=== PATIENT | female | born 1960 | race Caucasian/White ===

== ENCOUNTER 2020-05-22 14:57 | Outpatient (CLI) | payer OTHER, SELFPAY ==
--- NOTE | ~2020-05-22 | MM_ITS ---
EXAMINATION: MM screening [facility] BI w skylar HISTORY: Screening mammogram TECHNIQUE: Craniocaudal and mediolateral oblique 3-D tomosynthesis images were obtained and synthetic 2-D images were generated. CAD analysis was submitted and interpreted. COMPARISON: 04/14/2019, 04/11/2018, 02/22/2017 BREAST PARENCHYMAL COMPOSITION: The breasts are almost entirely fatty. FINDINGS: Scattered benign-appearing calcifications are present. There is no evidence of suspicious m ass, calcification, or architectural distortion to suggest malignancy in either breast. There has bee n no suspicious interval change. IMPRESSION: 1. No mammographic evidence of malignancy. 2. Recommend routine screening mammography in one year. BI-RADS Category 2: Benign finding(s). Reviewed, dictated and finalized at location A. ECTIONAL SUPERVISOR LIEUTENANT
== END 2020-05-22 14:58 | disposition home or self-care (01) ==
LOC: ANHIMG 14:58
PROVIDERS: PCP Nurse Practitioner Family; Visit Provider Obstetrics & Gynecology
DX: Z12.31 Encounter for screening mammogram for malignant neoplasm of breast (principal)
CPT/HCPCS: 77063; 77067

== ENCOUNTER 2020-11-27 10:23 | Outpatient (CLI) | payer OTHER, SELFPAY ==
--- NOTE | ~2020-11-27 | CT_ITS ---
EXAMINATION:CT diagnostic chest wo con DATE: 11/27/2020 10:39 INDICATION: Lung nodules. TECHNIQUE: Computed tomography (CT) of the chest was performed without intravenous contrast. Automate d exposure control and iterative reconstruction technique were employed. The dose-length product (DLP ) was 149.12 mGy-cm. COMPARISON: Chest CT 11/29/2006 FINDINGS: There is mild scarring at the lung apices. Calcified right lung nodules and calcified right hilar and mediastinal lymph nodes are consistent with old granulomatous disease. There are a few sca ttered nodules measuring up to 6 mm in right lower lobe, stable from 11/29/2006. No pleural effusion. The heart size is normal. There are coronary artery calcifications. No pericardial effusion. Calcific ations in the liver and spleen are consistent with old granulomatous disease. There are changes of an terior fusion procedure and disc replacement in cervical spine. IMPRESSION: 1. Chronic pulmonary nodules, likely benign. Reviewed, dictated and finalized at location A.
== END 2020-11-27 10:24 ==
LOC: MICIMG 10:24
PROVIDERS: PCP Nurse Practitioner Family; Visit Provider Nurse Practitioner
DX: R91.8 Other nonspecific abnormal finding of lung field (principal)
CPT/HCPCS: 71250

== ENCOUNTER → 2020-12-23 14:08 | Outpatient (CLI) | payer OTHER, SELFPAY ==
--- NOTE | ~2020-12-23 | US_ITS ---
EXAMINATION: US thyroid EXAM DATE: 12/23/2020 14:30 INDICATION: Thyroid nodule. TECHNIQUE: Multiple grayscale and Doppler images of the thyroid were obtained (by a technologist who performed the scan) and subsequently reviewed. Individual nodules and recommendations may be reporte d in accordance with TI-RADS system as designated by the 2017 ACR White Paper TI-RADS committee. Comp arison is made to prior examination from 02/13/2019. FINDINGS: The right thyroid lobe measures 4.3 x 1.1 x 1.6 cm, the left measuring 3.7 x 1.2 x 1.2 cm. Right thyr oid lobe 3 mm hypoechoic nodule and left thyroid lobe 2 mm hypoechoic nodule appear unchanged compare d to 2019 consistent with benign histology. Mildly diffusely heterogeneous thyroid echogenicity. IMPRESSION: Couple of tiny thyroid nodules, benign. Unremarkable exam. Reviewed, dictated and finalized at location A.
== END ==
PROVIDERS: PCP Nurse Practitioner Family; Visit Provider Nurse Practitioner Family
DX: E04.2 Nontoxic multinodular goiter (principal)
CPT/HCPCS: 76536

== ENCOUNTER 2021-06-25 10:23 | Outpatient (CLI) | payer OTHER, SELFPAY ==
--- NOTE | 2021-06-25 10:31 | ECG_ITS ---
Measurements Intervals [place] Rate: 75 P: 68 MO: 159 QRS: 35 QRSD: 94 T: 60 QT: 379 QTc: 425 Interpretive Statements SINUS RHYTHM NORMAL ECG Electronically Signed On 06-25-2021 10:55:45 GIRLS SWIMMING COACH by Aris Rose D.O.
[2021-06-25 10:58] LABS: Alanine Aminotransferase 18 U/L (4-35); Albumin Level 4.3 g/dL (3.5-5.1); Alkaline Phosphatase 71 U/L (38-126); Amylase 58 U/L (30-110); Aspartate Amino Transferase 23 U/L (14-36); Bilirubin,Total 0.5 mg/dL (0.2-1.3); Lipase 74 U/L (23-300)
== END 2021-06-25 10:24 | disposition home or self-care (01) ==
LOC: ANHSURGERY 10:26
PROVIDERS: PCP Nurse Practitioner Family; Visit Provider Surgery
DX: Z01.818 Encounter for other preprocedural examination (principal); K81.1 Chronic cholecystitis
CPT/HCPCS: 36415; 80076; 82150; 83690; 86850; 86900; 86901; 93005

== ENCOUNTER 2021-06-27 02:17 | Day surgery (SDC) | payer OTHER, SELFPAY ==
[2021-06-24 14:39] VITALS: BMI 25.9
--- NOTE | 2021-06-24 14:50 | PC.NURSE ---
Report to the Outpatient Waiting Room, entrance under the green pavilion located off [facility], at time 8:30 on date 06/27/21. OR Time: 10:30. - You will be asked a series of questions to screen for COVID 19 for your protection. - A mask is required within the hospital. - No visitors are allowed at this time. Preoperative COVID Testing Requirements: No COVID Test needed if: (proof is required; if not received patient will have Rapid Test prior to entry) - Patient has received COVID Vaccine at least 14 days prior to procedure date or - Patient has positive COVID test result within last 90 days of surgery date. COVID Test needed if above criteria is not met Patients may have clear liquids (water, carbonated beverages, clear teas, apple juice) until 3 hours prior to surgery (7:30) with a maximum of 20 ounces. - No food from midnight until time of surgery Take the following medications with a SIP of water the morning of surgery: ALBUTEROL (IF NEEDED), BUPROPION, DULOXETINE, METOPROLOL Medications to discontinue per physician: VITAMINS/SUPPLEMENTS Date to take last dose: 06/23/21 Please no make-up, nail ghanaian, hairspray, perfume, deodorant, or body powder the day of surgery. No jewelry (including any body piercings) or valuables the day of surgery, leave them at home. Please take a shower or bath the night before, or the morning of, surgery with an antibacterial soap. Wear comfortable, loose fitting clothing. HIBICLENS SHOWER - Jewelry must be removed prior to entering the operating room. Rings and piercings that are not removed may be cut off. - The hospital will not accept responsibility for valuables. - Please leave all valuables, including medications, at home the day of surgery. If you are going home after surgery, a licensed driver's license examiner must drive you home. - NO public transportation without another adult. - We recommend that an adult stay with you for 24 hours following discharge. - We also recommend that you do not drive, make important decision, drink alcoholic beverages, or take any drugs that were not prescribed by your health care provider for at least 24 hours after your discharge time. Follow any additional instructions given to you from your surgeon. Telephone instructions given to CLARE JONES and asked if any additional questions and then verbalized understanding. Patient advised to call surgeon office or pre surgery nurse liaison [phone] if any additional questions.
--- NOTE | 2021-06-26 14:46 | WPDANESEPPF ---
Anes - Initial Pre Proc Eval Procedure: Operation Date: 06/27/21 10:30 Proposed Procedures p Laparoscopic Cholecystectomy - Estrella Vance MD Date/Time: 06/26/21 14:46 Surgeon: Estrella Vance MD Pre Op Diagnosis: chronic cholecystitis Patient Data Age: 61 Gender: F Height: 1.61 m Weight: 67.59 kg Allergies Allergy/AdvReac Type Severity Reaction Status Date / Time No Known Drug Allergies Allergy Unknown Unknown Verified 06/27/21 10:08 Home Medications Medication Instructions Recorded Confirmed Type albuterol sulfate 90 mcg/actuation 1 inh INHALATION Q4-6H PRN 06/16/21 06/24/21 History breath activated powder inhaler bupropion HCl 150 mg 24 hr tablet, 150 mg PO QAM 06/16/21 06/24/21 History extended release duloxetine 30 mg capsule,delayed 30 mg PO DAILY 06/16/21 06/24/21 History release metoprolol succinate 25 mg 12.5 mg PO DAILY 06/16/21 06/24/21 History tablet,extended release 24 hr cholecalciferol (vitamin D3) 25 mcg PO DAILY 06/24/21 06/24/21 History [Vitamin D3] multivitamin 1 tablet PO DAILY 06/24/21 06/24/21 History Patient hx anesthesia problems: post op nausea/vomiting Family hx anesthesia problems: none Results Review: All pre-operative results and documents have been reviewed as part of the pre-operative evaluation. [facility] Past Medical History Medical History (Updated 06/26/21 @ 14:47 by Kameron Esparza DO) Anxiety COPD (chronic obstructive pulmonary disease) GERD (gastroesophageal reflux disease) Hypertension Mitral valve prolapse JASPAL (obstructive sleep apnea) PONV (postoperative nausea and vomiting) Surgical History Surgical History H/O neck surgery H/O shoulder surgery S/P bilateral breast reduction S/P carpal tunnel release Family History Family History Father Patient's father is , Onset Age: 80 Family history of chronic obstructive pulmonary disease Heart disease Cerebrovascular accident Mother , age 75 Pancreatic cancer Sibling Family history of malignant neoplasm, Onset Age: 50 Grandparent , age 65 Carcinoma of colon Family history of lung cancer Family history of dementia Social History Social History Years smoked: 15 Smoking status: Current some day smoker Tobacco type: cigarettes Smoking end date: 06/07/16 Alcohol intake: current Alcohol use details: rare Substance use: never Substance use type: does not use Living arrangements: with family Spiritual care concerns: No Anes - Eval Final PreProcedure Day of Procedure 06/26/21 14:46 Patient weight: overweight Heart: regular rate and rhythm Lungs: clear to auscultation and normal air movement Airway: Mallampati scale class II Neurological: alert and oriented Last oral intake: >/= 8 hours ASA classification: III Emergent: no Anesthetic plan: proceed Anesthesia type and monitoring: general ETT and standard monitoring Results Review: All pre-operative results and documents have been reviewed as part of the pre-operative evaluation. Informed Consent: The patient's anesthetic plan and its attendant risks and benefits were discussed with the patient/family/POA. Questions were solicited and answers provided to the satisfaction of the patient/family/POA.
[2021-06-27] VITALS (11 sets, daily range): BP systolic 113–138; BP diastolic 59–76; PULSE 76–96; RESP 11–20; TEMP 36.5; O2SAT 95–100
--- NOTE | 2021-06-27 07:28 | WPDHPUPDATE1 ---
History and Physical Update Update Date/Time: 06/27/21 07:28 History and Physical has been reviewed, including an updated exam of the patient. There are NO changes in the patient's condition. Risks, benefits, and alternatives have been discussed and questions answered. Patient agrees to proceed with procedure.
[2021-06-27] MEDS: ACETAMINOPHEN 500 MG TABLET 1000 MG PO (10:00)
[2021-06-27] MEDS: LACTATED RINGERS 1,000 ML 30 ML IV CONT ×2 (10:34→12:18)
[2021-06-27] MEDS: KETOROLAC 15 MG/ML VIAL (*BKC) IV PUSH (10:37)
[2021-06-27] MEDS: SCOPOLAMINE 1.5 MG PATCH TRANSDERM (10:37)
[2021-06-27] MEDS: ceFAZolin 2 GM/D5W 50 ML 2 GM/50 ML BAG IVPB (10:38)
[2021-06-27] MEDS: BUPIVACAINE/EPINEPHRINE 0.25% 10 ML VIAL 30 ML INFILTRATE (11:00)
--- NOTE | 2021-06-27 11:24 | P.OP_ITS ---
Procedure Note - Detailed Date of Procedure 06/27/21 Pre-op Diagnosis chronic cholecystitis Post-op Diagnosis same Procedure Performed Laparoscopic cholecystectomy Surgeon Estrella Vance MD Anesthesia general Indications 61 y/o F c chronic cholecystitis Findings chronic cholecystitis Description of Procedure The patient was taken to the operating room placed in the supine position. After adequate induction of general anesthesia, the patient was prepped and draped in normal sterile fashion. A time-out was then performed to verify the patient's identity as well as the procedure being performed. I then made a 5 mm incision in the infraumbilical region. Through this, a Veress needle was placed into the peritoneal cavity and CO2 gas was then insufflated. After adequate pneumoperitoneum was achieved, the Veress needle was removed and a 5 mm optiview trocar was placed through this incision under direct visualization. I then placed the laparoscope through this trocar site and under direct visualization placed a further 12 mm subxiphoid port as well as 2 additional 5 mm ports in the right upper abdomen. The gallbladder was then identified and was noted to be slightly inflamed, distended. I was able to place a grasper at the dome of the gallbladder and this was retracted anterior and cephalad up over the liver. A 2nd retractor was then placed at the infundibulum and retracted laterally, th is allowed visualization of the triangle of Calot. I then was able to visualize the cystic duct in its entirety from its proximal insertion into the gallbladder, to its distal junction with the common hepatic/common bile duct junction. At this point, I carefully skeletonized the proximal cystic duct with the [place] dissector. I then clipped and transected the proximal cystic duct. Next I visualized the cystic artery. Again the artery was skeletonized, clipped, and transected. I then used the Bovie cautery to take down the peritoneal attachments of the gallbladder off the liver bed. Once the gallbladder specimen was completely detached, an endo-pouch was placed through the 12 mm port site. I then placed the gallbladder specimen into the Endo pouch and removed the endo-pouch from the 12 mm port site. The specimen will now be sent to pathology for further review. I then copiously irrigated the right upper quadrant. Hemostasis was noted in the liver bed, the clips were noted to be in good position on both the cystic duct stump and the cystic artery stump. No other pathology was noted in the right upper quadrant. I then moved the laparoscope to the subxiphoid port. No iatrogenic injury or other pathology was noted in the lower abdomen. I then closed the 12 mm trocar site under direct visualization using the Rob cone and 0 Vicryl suture. At this point, the abdomen was desufflated and all ports removed. All port sites were then closed with 4.O Monocryl subcuticular sutures. Dermabond was placed on each incision. The patient tolerated the procedure well, was extubated in the operating room postoperative and will be transferred to the recovery room in stable condition Estimated Blood Loss 1 Drains No Packing No Pathology yes Complications No immediate complications Condition stable Disposition PACU
[2021-06-27] MEDS: fentaNYL CITRATE INJ (*CRX) 100 MCG/2 ML VIAL 25 MCG IV PUSH ×3 (12:07→12:39)
[2021-06-27] MEDS: ONDANSETRON INJ 4 MG/2 ML VIAL IV PUSH (12:16)
[2021-06-27] MEDS: diphenhydrAMINE HCl INJ 50 MG/ML VIAL 12.5 MG IV PUSH (12:35)
== END 2021-06-27 14:03 | disposition home or self-care (01) ==
PROVIDERS: PCP Nurse Practitioner Family; Visit Provider Surgery
PROC: 0FT44ZZ Resection of Gallbladder, Percutaneous Endoscopic Approach (ICD-10-PCS; CPT 47562; principal; 2021-06-27 10:30)
DX: K81.1 Chronic cholecystitis (principal); J44.9 Chronic obstructive pulmonary disease, unspecified; I10 Essential (primary) hypertension; I34.1 Nonrheumatic mitral (valve) prolapse; G47.33 Obstructive sleep apnea (adult) (pediatric); K21.9 Gastro-esophageal reflux disease without esophagitis; F41.9 Anxiety disorder, unspecified; Z79.51 Long term (current) use of inhaled steroids; Z87.891 Personal history of nicotine dependence
CPT/HCPCS: 47562; 36415; 86850; 86900; 86901; 88304; A9270; J0690; J1100; J1200; J1885; J2250; J2270; J2405; J2704; J2710; J3010; J7030; J7120

== ENCOUNTER → 2022-02-17 10:07 | Outpatient (CLI) | payer OTHER, SELFPAY ==
--- NOTE | ~2022-02-17 | XR_ITS ---
EXAMINATION: XR chest 2V DATE: 02/17/2022 10:36 INDICATION: Acute exacerbation of COPD TECHNIQUE: Frontal and lateral views of the chest are obtained COMPARISON: 06/20/2008 FINDINGS: The lungs are free of acute opacities. No pleural effusion or pneumothorax. The cardiomedia stinal silhouette is normal. There is mild thoracic spondylosis. Calcified mediastinal lymph nodes ar e consistent with old granulomatous disease. Surgical clips in the upper abdomen on the lateral view are likely from prior cholecystectomy. IMPRESSION: 1. No acute cardiopulmonary abnormality. Reviewed, dictated and finalized at location B.
== END ==
PROVIDERS: PCP Nurse Practitioner Family; Visit Provider Nurse Practitioner
DX: J44.1 Chronic obstructive pulmonary disease with (acute) exacerbation (principal); M47.814 Spondylosis without myelopathy or radiculopathy, thoracic region
CPT/HCPCS: 71046

== ENCOUNTER → 2022-03-09 10:59 | Outpatient (CLI) | payer OTHER, SELFPAY ==
--- NOTE | ~2022-03-09 | US_ITS ---
EXAMINATION: US thyroid DATE: 03/09/2022 11:14 INDICATION: Thyroid nodule. TECHNIQUE: Multiple ultrasound images of the thyroid were obtained. COMPARISON: Ultrasound 12/23/2020, 08/04/2013 FINDINGS: The right thyroid lobe measures 5.3 x 1.3 x 1.9 cm. The left thyroid lobe measures 4.1 x 1.1 x 1.2 c m. There is a 2 mm nodule in left thyroid lobe. There is a 3 mm nodule in right thyroid lobe. IMPRESSION: 1. Small thyroid nodules, likely not clinically significant. No follow-up is needed. Reviewed, dictated and finalized at location B. IMPRESSION: 1. Small thyroid nodules, likely not clinically significant. No follow-up is ne eded.
== END ==
PROVIDERS: PCP Nurse Practitioner Family; Visit Provider Nurse Practitioner Family
DX: E04.2 Nontoxic multinodular goiter (principal)
CPT/HCPCS: 76536

== ENCOUNTER 2022-03-13 08:46 | Outpatient (CLI) | payer OTHER, SELFPAY ==
--- NOTE | ~2022-03-13 | MM_ITS ---
EXAMINATION: MM screening [facility] BI w skylar HISTORY: Screening mammogram TECHNIQUE: Craniocaudal and mediolateral oblique 3-D tomosynthesis images were obtained and synthetic 2-D images were generated. CAD analysis was submitted and interpreted. COMPARISON: 05/22/2020, 04/24/2019, 04/11/2018, 02/22/2017 BREAST PARENCHYMAL COMPOSITION: The breasts are almost entirely fatty. FINDINGS: No suspicious mass, calcification, or architectural distortion are identified in either david ast to suggest malignancy. There has been no suspicious interval change. IMPRESSION: 1. No mammographic evidence of malignancy. 2. Recommend routine screening mammography in one year. BI-RADS Category 1: Negative Reviewed, dictated and finalized at location A.
== END 2022-03-13 08:47 | disposition home or self-care (01) ==
LOC: ANHIMG 08:49
PROVIDERS: PCP Nurse Practitioner Family; Visit Provider Obstetrics & Gynecology
DX: Z12.31 Encounter for screening mammogram for malignant neoplasm of breast (principal)
CPT/HCPCS: 77063; 77067

== ENCOUNTER 2022-03-13 13:00 | Outpatient (CLI) | payer OTHER, SELFPAY ==
--- NOTE | ~2022-03-13 | CT_ITS ---
EXAMINATION: CTA chest PE protocol DATE: 03/13/2022 15:05 CDT INDICATION: Chest pain TECHNIQUE: Computed tomographic angiography (CTA) of the chest was performed with 100 mL Omnipaque-35 0 intravenous contrast. The dose-length product was 184.97 mGy-cm. Maximum intensity projection 3D-re constructions of the aorta and other arteries were constructed by the technologist on a separate work station. Automated exposure control and iterative reconstruction technique were employed. COMPARISON: CT dated 11/27/2020 FINDINGS: The study is technically adequate without evidence for pulmonary emboli. No significant ple ural or pericardial effusion. There is a hiatal hernia. No thoracic lymphadenopathy. Status post chol ecystectomy. There are calcified granulomas of the liver and spleen. There are bilateral pulmonary no dules, largest measuring 5 mm in the right lower lobe, unchanged from prior examination. No pulmonary nodules. IMPRESSION: 1. No evidence for pulmonary embolism. 2: Stable bilateral pulmonary nodules measuring 5 mm or less, likely benign. Consider follow-up CT est in 12 months. Reviewed, dictated and finalized at location A. IMPRESSION: 1. No evidence for pulmonary embolism. 2: Stable bilateral pulmonary nodules measuring 5 mm or less, likely benign. Co nsider follow-up CT chest in 12 months.
[2022-03-13 13:56] LABS: Alveolar/Arterial O2 Gradient 12.3 mmHg; Base Excess ABG 1.6 mEq/l (+/-2.0); Carboxyhemoglobin 4.4 % THb (0-2.0); Fractional Inspired Oxygen 21 %; HCO3 ABG 26.3 mEq/l (22.0-26.0); Methemoglobin ABG 0.1 %THb (0-1.5); Oxygen Content ABG 17.6 %vol (16.0-22.0); Oxygen Saturation ABG 96.8 % (95.0-100.0); Oxyhemoglobin 91.7 % THb (90.0-100.0); PCO2 ABG 41.5 mmHg (35.0-45.0); PO2 ABG 87.7 mmHg (80.0-100.0); PO2 FiO2 Ratio Arterial Blood 4.18 %; Reduced Hemoglobin 3.8 %THb (0-5.0); Total Hemoglobin 13.6 g/dL (12.0-18.0); pH ABG 7.419 (7.350-7.450)
[2022-03-13 13:58] LABS: Device ROOM AIR; Modified Allen's Test Pass; Site Drawn RIGHT RADIAL
[2022-03-13 14:59] LABS: Estimated Glomerular Filt Rate > 60
--- NOTE | 2022-03-13 15:52 | WPDSIXMINUTE ---
Six Minute Walk Procedure Procedure Performed Pulmonary Stress Test (6 min walk) Six Minute Walk Six Minute Walk: This is a 6 minute walk test. The test was performed and interpreted in accordance with the 2014 ERS/ATS task force guidelines. Findings: The patient's resting room air oxygen saturation measured by pulse oximetry was 98% and heart rate was 124 bpm. Patient ambulated for 427 meters and oxygen saturation remained 96 to 98%. Heart rate at the end of the study was 144 bpm. The patient did not qualify for supplemental oxygen at rest or with ambulation. There are no prior studies for comparison.
--- NOTE | 2022-03-13 15:53 | P.PCNPFT_ITS ---
PFT Procedure Performed PFT Procedure Performed Spirometry with Pre/Post Bronchodilator Plethysmography (Lung Vol) Diffusing Cap (DLCO) Flow Vol Loop PFT Interpretation This is a pulmonary function test with pre and post-bronchodilator spirometry, plethysmography and diffusing capacity. The test was performed and results interpreted in accordance with the 2019 and 2005 ATS/ERS Task Force guidelines respectively using the Global Lung Function Initiative-2012 reference equations. Patient demonstrated good effort and cooperation. Reproducibility criteria were met. The quality of the pre bronchodilator spirometry maneuver was Grade A and post bronchodilator spirometry maneuver was Grade A. Findings: Spirometry: There is decreased maximal expiratory airflow at all lung volumes with a mildly concave expiratory flow tracing. The contour the inspiratory flow tracing is normal. The pre bronchodilator FVC is 2.27 L, 77% predicted. The pre bronchodilator FEV1 is 1.58 L, 68% predicted. The pre bronchodilator FEV1: FVC ratio 70%. The post bronchodilator FVC is 2.53 L, representing a 12% increase. The post bronchodilator FEV1 is 1.72 L, representing a 9% increase. The post bronchodilator FEV1: FVC ratio 68%. Plethysmography: The total lung capacity is 5.71 L, 117% predicted. The functi onal residual capacity is 3.46 L, 124% predicted. The residual volume is 3.33 L, 165% predicted. Diffusion capacity: The diffusing capacity unadjusted for hemoglobin and carboxyhemoglobin is 14.3, 69% predicted. Diffusing capacity adjusted for alveolar volume is 3.49, 79% predicted. Impression: There is a moderate obstructive abnormality with significant improvement after inhaling a single dose of albuterol. The increase in residual volume is consistent with air trapping from an obstructive abnormality. The diffusing capacity is normal. There are no prior studies for comparison
== END 2022-03-13 13:01 | disposition home or self-care (01) ==
PROVIDERS: PCP Nurse Practitioner Family; Visit Provider Nurse Practitioner
DX: J44.9 Chronic obstructive pulmonary disease, unspecified (principal); R07.9 Chest pain, unspecified; R94.2 Abnormal results of pulmonary function studies
CPT/HCPCS: 36600; 71275; 82375; 82805; 83050; 94060; 94618; 94726; 94729; Q9967

== ENCOUNTER 2022-06-11 13:53 | Outpatient (CLI) | payer OTHER, SELFPAY ==
[2022-06-11 14:19] LABS: Basophils Percent Auto 0.5 % (0.2-1.2); Eosinophils Absolute Auto 0.2 K/mm3 (0-0.3); Eosinophils Percent Auto 2.6 % (0-4.4); Hematocrit 39.6 % (37.0-47.0); Hemoglobin 13.3 g/dL (12.0-15.0); Immature Granulocyte Absolute 0.01 K/mm3 (0.00-0.031); Immature Granulocyte Percent A 0.2 % (0-0.5); Lymphocytes Absolute Auto 2.19 K/mm3 (0.9-3.2); Mean Corpuscular HGB Conc 33.6 g/dl (32-36); Mean Corpuscular Volume 95.4 fl (80-100); Mean Platelet Volume 9.6 fl (7.4-10.4); Monocytes Absolute Auto 0.7 K/mm3 (0.1-0.6); Monocytes Percent Auto 10.2 % (2.6-8.5); Neutrophils Absolute Auto 3.4 K/mm3 (1.3-6.7); Neutrophils Percent Auto 52.5 % (45.5-73.1); Platelet Count Result 262 k/mm3 (150-375); Red Blood Count 4.15 M/mm3 (4.2-5.4); Red Cell Distribution Width 12.3 % (11.5-14.5); White Blood Count 6.5 K/mm3 (4.5-10.0)
[2022-06-11 15:23] LABS: Alanine Aminotransferase 20 U/L (6-35); Albumin Level 4.4 g/dL (3.5-5.1); Alkaline Phosphatase 80 U/L (38-126); Anion Gap 8 mmol/L (8-16); Aspartate Amino Transferase 24 U/L (14-36); Bilirubin,Total 0.4 mg/dL (0.2-1.3); Blood Urea Nitrogen 21 mg/dL (7-17); Carbon Dioxide 29 mmol/L (22-30); Chloride 105 mmol/L (98-107); Estimated Glomerular Filt Rate 56; Glucose 111 mg/dL (65-110); Potassium 4.3 mmol/L (3.4-5.0); Sodium 142 mmol/L (137-145)
[2022-06-11 15:28] LABS: Iron 125 ug/dL (37-170)
[2022-06-11 15:43] LABS: Percent Iron Saturation 35 % (20-50)
== END 2022-06-11 13:54 | disposition home or self-care (01) ==
PROVIDERS: PCP Nurse Practitioner Family; Visit Provider Internal Medicine Hematology & Oncology
DX: E83.110 Hereditary hemochromatosis (principal)
CPT/HCPCS: 36415; 80053; 81256; 82728; 83540; 83550; 85025

== ENCOUNTER → 2022-06-25 12:54 | Outpatient (CLI) | payer OTHER, SELFPAY ==
--- NOTE | ~2022-06-25 | CT_ITS ---
EXAMINATION: CT sinus wo con DATE: 06/25/2022 13:06 INDICATION: Chronic sinusitis TECHNIQUE: Computed tomography (CT) of the paranasal sinuses was performed without contrast. Iterativ e reconstruction technique was employed. Exam dose: 260.54 mGy-cm total exam DLP. COMPARISON: None FINDINGS: There is rightward deviation of the nasal septum. There is asymmetric soft tissue prominence of the left inferior nasal turbinate. There is very promin ent left middle nasal turbinate intralamellar cell. There is focal soft tissue swelling at the left maxillary ostium Focal approximately 7.5 x 11 mm soft tissue thickening along the upper anteromedial wall of the right maxillary sinus at the right maxillary ostium. Otherwise there is no significant mucoperiosteal thickening or soft tissue mass or any fluid levels o f the paranasal sinuses. The mastoid air cells are normally developed and aerated bilaterally. Middle and inner ear apparatus are unremarkable. IMPRESSION: Soft tissue swelling at both maxillary ostia, right greater than left Very prominent intralamellar cell of left middle nasal turbinate Asymmetric soft tissue swelling of left inferior nasal turbinate Reviewed, dictated and finalized at Location A. Reviewed, dictated and finalized at location L. 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
== END ==
PROVIDERS: Visit Provider Otolaryngology
DX: J32.0 Chronic maxillary sinusitis (principal)
CPT/HCPCS: 70486

== ENCOUNTER 2022-09-02 16:44 | Inpatient (IN) | payer OTHER, SELFPAY ==
[2022-09-02] VITALS (12 sets, daily range): BP systolic 86–113; BP diastolic 61–82; PULSE 98–134; RESP 16–30; TEMP 36.5–36.9; O2SAT 96–100; BMI 27.0
--- NOTE | ~2022-09-02 | CT_ITS ---
EXAMINATION: CTA chest PE abdomen pel DATE: 09/02/2022 19:45 INDICATION: Hypoxia and lower abdominal pain TECHNIQUE: Computed tomography angiography (CTA) of the chest was performed with 100 mL Omnipaque-350 intravenous contrast timed to evaluate the pulmonary arteries. Subsequent postcontrast images of the abdomen and pelvis are obtained. Coronal maximum intensity projection 3D-reconstructions were create d by the technologist. The dose-length product (DLP) was 555.05 mGy-cm. Automated exposure control an d iterative reconstruction technique were employed. COMPARISON: 03/13/2022, 11/27/2020 FINDINGS: CTA CHEST: The pulmonary arteries are well-opacified. No pulmonary embolism is identified. There are scattered, chronic bilateral pulmonary nodules measuring up to 6 mm which do not demonstrate signific ant interval change in size, most consistent with benign findings. There are trace pleural effusions. No pneumothorax is identified. There is left ventricular enlargement of the heart. There is mild pul monary edema. There is mild bilateral hilar lymphadenopathy, likely reactive. ABDOMEN/PELVIS CT: The gallbladder is surgically absent. There is mild enlargement of the common bile duct and central intrahepatic ducts which is likely due to post cholecystectomy state. The liver, pa ncreas, and adrenal glands are normal. Punctate calcifications of the spleen are consistent with old granulomatous disease. There is a 6 mm hypoattenuating lesion of the caudal aspect of the spleen, lik leoncio a cyst or lymphangioma. The kidneys are unremarkable. No pathologically enlarged abdominal or pel radha lymph nodes are identified. The appendix is normal. No free intraperitoneal gas or evidence of emperatriz wel obstruction. A moderate volume of colonic stool is present. There is moderate distention of the u rinary bladder. There is mild lumbar spondylosis. IMPRESSION: 1. No pulmonary embolus identified. 2. Left ventricular enlargement of the heart with mild pulmonary edema. 3. No acute abnormality of the abdomen or pelvis. Reviewed, dictated and finalized at location F.
--- NOTE | ~2022-09-02 | XR_ITS ---
EXAMINATION: XR chest 2V DATE: 09/02/2022 17:57 INDICATION: Shortness of breath TECHNIQUE: PA and lateral views of the chest are obtained. COMPARISON: 02/17/2022 FINDINGS: There are linear subpleural opacities of the lungs. There are trace pleural effusions. No p neumothorax is identified. The cardiomediastinal silhouette is normal. Calcified right hilar lymph no genoveva are consistent with old granulomatous disease. Surgical clips in the right upper quadrant are lik leoncio from prior cholecystectomy. There is mild thoracic spondylosis. Changes of anterior fusion are no nova in the lower cervical spine. IMPRESSION: 1. Findings consistent with mild pulmonary edema. Reviewed, dictated and finalized at location F.
--- NOTE | ~2022-09-02 | XR_ITS ---
Portable chest x-ray Comparison: 09/02/2022 Clinical History: Shortness of breath Findings: Lungs are clear, without focal consolidation or pleural effusion. Probable COPD or mild ch ronic interstitial disease. Cardiomediastinal silhouette is stable. Bones and soft tissues are unrem arkable. Impression: Probable COPD or other mild chronic interstitial disease. No acute abnormality seen. Reviewed, dictated and finalized at location . Impression: Probable COPD or other mild chronic interstitial disease. No acute abnormality seen.
--- NOTE | ~2022-09-02 | US_ITS ---
EXAMINATION: US venous doppler [facility] DATE: 09/03/2022 22:42 INDICATION: Lower limb pain and swelling TECHNIQUE: Andres scale images without and with compression and Doppler images of the bilateral lower e xtremity veins were obtained. COMPARISON: None FINDINGS: The right common femoral vein, profunda femoral vein, femoral vein, popliteal vein, peroneal trunk, p osterior tibial veins, and greater saphenous vein are patent. The left common femoral vein, profunda femoral vein, femoral vein, popliteal vein, peroneal trunk, po sterior tibial veins, and greater saphenous vein are patent. IMPRESSION: 1. Patent bilateral lower extremity veins. No evidence of deep venous thrombosis. Reviewed, dictated and finalized at location F. IMPRESSION: 1. Patent bilateral lower extremity veins. No evidence of deep venous thrombosi s.
--- NOTE | 2022-09-02 17:12 | ECG_ITS ---
Measurements Intervals [place] Rate: 124 P: -2 CT: 145 QRS: -58 QRSD: 141 T: 85 QT: 350 QTc: 503 Interpretive Statements SINUS TACHYCARDIA LEFT AXIS DEVIATION LEFT BUNDLE BRANCH BLOCK BASELINE ARTIFACT- I, III, AVR, AVL, AVF, V5 ABNORMAL ECG COMPARED TO ECG 06/25/2021 10:43:02 SINUS TACHYCARDIA NOW PRESENT LEFT-AXIS DEVIATION NOW PRESENT LEFT BUNDLE-BRANCH BLOCK NOW PRESENT Electronically Signed On 09-02-2022 21:07:47 CDT by Aris Rose D.O.
[2022-09-02 17:26] LABS: Basophils Percent Auto 0.4 % (0.2-1.2); Eosinophils Absolute Auto 0.3 K/mm3 (0-0.3); Eosinophils Percent Auto 4.1 % (0-4.4); Hematocrit 33.2 % (37.0-47.0); Hemoglobin 10.8 g/dL (12.0-15.0); Immature Granulocyte Absolute 0.02 K/mm3 (0.00-0.031); Immature Granulocyte Percent A 0.3 % (0-0.5); Lymphocytes Absolute Auto 1.74 K/mm3 (0.9-3.2); Lymphocytes Percent Auto 25.3 % (18.3-44.2); Mean Corpuscular HGB Conc 32.5 g/dl (32-36); Mean Corpuscular Hemoglobin 30.8 pg (26-34); Mean Corpuscular Volume 94.6 fl (80-100); Mean Platelet Volume 9.8 fl (7.4-10.4); Monocytes Absolute Auto 0.7 K/mm3 (0.1-0.6); Neutrophils Absolute Auto 4.1 K/mm3 (1.3-6.7); Neutrophils Percent Auto 59.9 % (45.5-73.1); Platelet Count Result 263 k/mm3 (150-375); Red Blood Count 3.51 M/mm3 (4.2-5.4); Red Cell Distribution Width 12.1 % (11.5-14.5); White Blood Count 6.9 K/mm3 (4.5-10.0)
[2022-09-02 17:37] LABS: Alanine Aminotransferase 17 U/L (6-35); Albumin Level 4.3 g/dL (3.5-5.1); Alkaline Phosphatase 88 U/L (38-126); Anion Gap 7 mmol/L (8-16); Aspartate Amino Transferase 29 U/L (14-36); Bilirubin,Total 0.6 mg/dL (0.2-1.3); Blood Urea Nitrogen 21 mg/dL (7-17); Calcium 9.1 mg/dL (8.4-10.2); Carbon Dioxide 24 mmol/L (22-30); Chloride 107 mmol/L (98-107); Estimated CRCL calculation 58 ml/min; Estimated Glomerular Filt Rate > 60; Glucose 86 mg/dL (65-110); Potassium 4.4 mmol/L (3.4-5.0); Sodium 138 mmol/L (137-145)
[2022-09-02 17:52] LABS: Magnesium 1.9 mg/dL (1.6-2.3)
[2022-09-02 17:58] LABS: INR 1.1; Prothrombin Time 13.4 Seconds (11.1-14.7)
[2022-09-02] MEDS: IPRATROPIUM BR 0.02% INH SOLN 0.5 MG/2.5 ML VIAL 1.5 MG INHALATION (17:58)
[2022-09-02] MEDS: LEVALBUTEROL NEB 1.25 MG/3 ML 2.5 MG (17:58)
[2022-09-02 17:59] LABS: Partial Thromboplastin Time 33.6 SECONDS (22.3-36.8)
--- NOTE | 2022-09-02 18:00 | ED.SOB ---
HPI - SOB/Dyspnea General Chief Complaint: Shortness of Breath/Dyspnea <Pallavi Diop PA-C - Last Filed: 09/03/22 02:42> Stated Complaint: diff breathing <ERIC Rose Last Filed: 09/03/22 02:42> Time Seen by Provider: 09/02/22 17:07 <ERIC Rose Last Filed: 09/03/22 02:42> Source: patient <ERIC Rose Last Filed: 09/03/22 02:42> Mode of arrival: ambulatory <ERIC Rose Last Filed: 09/03/22 02:42> Limitations: no limitations <ERIC Rose Last Filed: 09/03/22 02:42> History of Present Illness HPI Narrative: Patient is a 62-year-old female, with past medical history of COPD, who presents to the ED with report of shortness of breath. Patient reports she has felt intermittently short of breath, worse with exertion and laying flat, over the last 1 week. She states she has had issues with her breathing since having COVID in 2020. She has seen a rfid systems engineer, Dr. Mensah, and regional company hazmat tanker driver, Dr. Hunter, for this. Denies previous Dx of CHF. Shortness of breath became worse today and patient noticed her oxygen saturation dropping to 86% while ambulating. Patient also reports having racing heart palpitations, chest tightness, intermittent swelling of her ankles, mild cough, nausea, lightheadedness, and lower abdominal pain for the past 1 to 2 days. Denies recent fever, vomiting, diarrhea, constipation, urinary sx's. <ERIC Rose Last Filed: 09/03/22 02:42> Related Data Home Medications: Home Medications Medication Instructions Recorded Confirmed albuterol sulfate 90 mcg/actuation 1 inh inhalation Q4-6H PRN 06/16/21 09/02/22 breath activated powder inhaler Bronchospasm budesonide 0.5 mg/2 mL suspension 0.5 mg inhalation DAILY 09/02/22 09/02/22 for nebulization fluticasone furoate 100 1 inh inhalation DAILY 09/02/22 09/02/22 mcg/actuation blister powder for inhalation (Arnuity Ellipta) omeprazole 40 mg capsule,delayed 40 mg PO DAILY 09/02/22 09/02/22 release tiotropium bromide 18 mcg capsule 1 cap inhalation DAILY 09/02/22 09/02/22 with inhalation device (Spiriva with HandiHaler) <Pallavi Diop PA-C - Last Filed: 09/03/22 02:42> Allergies/Adverse Reactions: Allergies Allergy/AdvReac Type Severity Reaction Status Date / Time No Known Drug Allergies Allergy Unknown Unknown Verified 09/02/22 17:25 <Pallavi Diop PA-C - Last Filed: 09/03/22 02:42> Review of Systems Review of Systems: CONSTITUTIONAL: Denies fever, chills, or sweats. CARDIOVASCULAR: See HPI. RESPIRATORY: See HPI. GASTROINTESTINAL: See HPI. GENITOURINARY: Denies dysuria or hematuria. SKIN: Denies rash or itching. MUSCULOSKELETAL: Denies back pain, joint pain, or myalgia. NEUROLOGIC: See HPI. <ERIC Rose Last Filed: 09/03/22 02:42> All systems reviewed & are unremarkable except as noted in HPI and below <Pallavi Diop PA-C - Last Filed: 09/03/22 02:42> PMFSH Past Medical History Medical History: Medical History (Updated 09/04/22 @ 16:51 by Alexey Arnett MD) Anxiety COPD (chronic obstructive pulmonary disease) GERD (gastroesophageal reflux disease) Hemochromatosis Hypertension Mitral valve prolapse JASPAL (obstructive sleep apnea) PONV (postoperative nausea and vomiting) <ERIC Rose Last Filed: 09/03/22 02:42> Surgical History Surgical History: Surgical History H/O neck surgery H/O shoulder surgery Hx laparoscopic cholecystectomy 06/27/21 S/P bilateral breast reduction S/P carpal tunnel release <ERIC Rose Last Filed: 09/03/22 02:42> Family History Family History: Family History Father Patient's father is , Onset Age: 80 Family history of chronic obstructiv
[2022-09-02 18:11] LABS: NT Pro B Type Natriuretic Pept 6810 pg/mL (19.9-100); Troponin I 0.086 ng/mL (0.000-0.034)
[2022-09-02 18:41] LABS: Influenza A QL RT-PCR Negative (Negative); Influenza B QL RT-PCR Negative (Negative); SARS-CoV-2 RNA PCR Negative
[2022-09-02] MEDS: FUROSEMIDE INJ 40 MG/4 ML VIAL IV PUSH (18:46)
[2022-09-02 18:59] LABS: Appearance Urine Clear (Clear); Bacteria Urine None Seen /hpf; Bilirubin Urine Negative (Negative); Blood Urine Trace (Negative); Color Urine Yellow (Yellow); Glucose Urine UA Negative (Negative); Ketones Urine Negative (Negative); Leukocyte Esterase Ur Trace LEU/UL (Negative); Nitrate Urine Negative (Negative); Non Pathogenic Casts 0-2; Protein Urine Negative (Negative); RBC Urine 0-2 /hpf (0-2); Specific Grav Ur 1.008 (1.001-1.035); Squamous Epithelial Cell Urine Occasional /hpf (Few); Urobilinogen Urine 0.2 mg/dL (<2.0); WBC Urine 0-5 /hpf; pH Urine 5.5 (5.0-9.0)
[2022-09-02 19:02] LABS: Add Urine Microscopic? YES
[2022-09-02 21:04] LABS: Troponin I 0.106 ng/mL (0.000-0.034)
[2022-09-02] MEDS: HEPARIN SODIUM 5,000 UNITS/ML VIAL 3500 UNITS IV PUSH (21:24)
[2022-09-02] MEDS: HEPARIN SOD/D5W 100 UNITS/ML 25,000 UNITS/250 ML BAG 7 UNITS IV CONT (21:25)
--- NOTE | 2022-09-02 22:18 | ADMGEN ---
This patient, Olga Dang, was admitted to IMU Room 213-01 at 2218. Patient/family oriented to hospital policies and general routines including ID bracelet, bed and alarms, visiting hours, pain management, procedures, bathroom and other care routines, personal items, smoking policy, room service/diet, and visiting hours. Information on how to activate the Rapid Response Team has been discussed. Patient/Family are encouraged to report perceived risks to care and to ask questions if they do not understand what they are told or what they should do.
--- NOTE | 2022-09-02 23:37 | PM.IMHP ---
H&P: HPI History of Present Illness Date/Time: 09/02/22 23:37 Chief Complaint: Shortness of breath and low oxygen saturation Narrative: Patient is a 62-year-old female with past medical history of COPD who used to be on oxygen but was taken off 9 months ago, as well as tachycardia, following up with Pulmonary and dumpcart driver Dr. Mensah who is coming in for some shortness of breath and on and off substernal chest pain for several months. Patient said that she had a history of pneumonia in the past and on discharge from the hospital was placed on oxygen for about 2 months. Nine months ago she was taken off the oxygen but has been complaining of some nonspecific chest pain as well as shortness of breath. She follows up with dumpcart driver and she said the plan is for her to get a cardiac catheterization in 2 weeks. She was also diagnosed with some tachycardia for which she was given diltiazem. Patient uses a pulse ox at home and said that she noticed her oxygen level to drop to the 80s. She then went to the emergency room for further evaluation. On room room air patient was saturating fine at rest. However with ambulation she would desaturate to 86%. She had a chest CT scan done which showed left ventricular enlargement and mild pulmonary edema. She also had a troponin which was elevated at 0.08. She had an ECG done which showed left bundle branch block. ER discussed the case with restaurant busser DR. Zafar and since there was no acute stemi, no acute cardiac catheterization was indicated at this point. Patient had repeat troponins drawn which showed slight increase in value to 0.1 and ER called back non restaurant busser Dr. Nunez who then recommended starting the patient on heparin drip. Patient is currently seen in the room. She is comfortably laying in bed with no tachypnea or distress. She is frustrated with not knowing why she is short of breath. She said that her pulmonary doctor and dumpcart driver are both doing workup to figure out her problem. She prefers to be discharged on oxygen and have her cardiac catheterization done sooner. Review of Systems Review of Systems: no fever or weight loss no vision changes, no eye discharge no throat pain, no hoarseness, no lymphadenopathy Minimal substernal chest pain, no palpitations no coughing, no wheezing no abdominal pain, no diarrhea, no nausea, no vomiting no dysuria, no vaginal discharge no leg swelling, no edema no suicidal or homicidal ideation [facility] Past Medical History Medical History (Updated 09/03/22 @ 00:04 by Martinez Bravo MD) Anxiety COPD (chronic obstructive pulmonary disease) GERD (gastroesophageal reflux disease) Hemochromatosis Hypertension Mitral valve prolapse JASPAL (obstructive sleep apnea) PONV (postoperative nausea and vomiting) Surgical History Surgical History H/O neck surgery H/O shoulder surgery Hx laparoscopic cholecystectomy 06/27/21 S/P bilateral breast reduction S/P carpal tunnel release Family History Family History Father Patient's father is , Onset Age: 80 Family history of chronic obstructive pulmonary disease Heart disease Cerebrovascular accident Mother , age 75 Pancreatic cancer Sibling Family history of malignant neoplasm, Onset Age: 50 Grandparent , age 65 Carcinoma of colon Family history of lung cancer Family history of dementia Social History Social History Years smoked: 15 Smoking status: Former smoker Tobacco type: cigarettes Smoking end date: 06/07/16 Alcohol intake: never Alcohol use details: rare Substance use: never Substance use type: does not use Lack of Transportation: No Lack of Food: Never True Current Housing: I Have Housing Concerned
[2022-09-02 23:58] LABS: Troponin I 0.112 ng/mL (0.000-0.034)
[2022-09-03] VITALS (33 sets, daily range): BP systolic 83–118; BP diastolic 46–75; PULSE 57–114; RESP 14–24; TEMP 36.1–36.9; O2SAT 95–100
[2022-09-03 04:23] LABS: Basophils Percent Auto 0.5 % (0.2-1.2); Eosinophils Absolute Auto 0.3 K/mm3 (0-0.3); Eosinophils Percent Auto 4.5 % (0-4.4); Hematocrit 34.1 % (37.0-47.0); Hemoglobin 11.1 g/dL (12.0-15.0); Immature Granulocyte Absolute 0.02 K/mm3 (0.00-0.031); Immature Granulocyte Percent A 0.3 % (0-0.5); Lymphocytes Absolute Auto 2.11 K/mm3 (0.9-3.2); Lymphocytes Percent Auto 32.5 % (18.3-44.2); Mean Corpuscular HGB Conc 32.6 g/dl (32-36); Mean Corpuscular Hemoglobin 30.3 pg (26-34); Mean Corpuscular Volume 93.2 fl (80-100); Monocytes Absolute Auto 0.9 K/mm3 (0.1-0.6); Monocytes Percent Auto 13.4 % (2.6-8.5); Neutrophils Absolute Auto 3.2 K/mm3 (1.3-6.7); Neutrophils Percent Auto 48.8 % (45.5-73.1); Platelet Count Result 264 k/mm3 (150-375); Red Blood Count 3.66 M/mm3 (4.2-5.4); Red Cell Distribution Width 11.9 % (11.5-14.5); White Blood Count 6.5 K/mm3 (4.5-10.0)
[2022-09-03 04:34] LABS: Cholesterol 169 mg/dL (0-200); HDL Direct 57 mg/dL; Triglycerides 74 mg/dL (<150)
[2022-09-03 04:35] LABS: Anion Gap 6 mmol/L (8-16); Blood Urea Nitrogen 22 mg/dL (7-17); Carbon Dioxide 34 mmol/L (22-30); Chloride 99 mmol/L (98-107); Estimated CRCL calculation 47 ml/min; Estimated Glomerular Filt Rate 56; Glucose 99 mg/dL (65-110); Potassium 3.8 mmol/L (3.4-5.0); Sodium 139 mmol/L (137-145)
[2022-09-03 04:39] LABS: Partial Thromboplastin Time 63.3 SECONDS (22.3-36.8)
[2022-09-03 04:45] LABS: LDL Cholesterol Direct 89 mg/dL
--- NOTE | 2022-09-03 06:00 | ECHO_ITS ---
Patient Info Name: Olga Dang Age: 62 years : 1960 Gender: Female Ht: 63 in Wt: 152 lbs BSA: 1.77 m2 HR: 111 bpm BP: 92 / 46 mmHg Heart Rhythm: Sinus Rhythm, Tachycardia Exam Date: 09/03/2022 12:28 PM Exam Location: [facility] Patient Status: Inpatient Admit Date: 09/03/2022 Staff Ordering Physician: Pallavi Diop PA-C Utilization Reviewer: Hector Gordon RDCS, RT Attending Provider: Martinez Bravo MD Referring Physician: Jadon VERDIN; Exam Type: CA echo doppler color flow Study Info Indications R06.02 - Shortness of breath I50.9 - Heart failure, unspecified Complete two-dimensional, color flow and Doppler transthoracic echocardiogram is performed. Strain analysis performed. Summary 1. Complete two-dimensional, color flow and Doppler transthoracic echocardiogram is performed. 2. Left ventricular chamber dimension is severely enlarged. 3. Left ventricular systolic function is severely reduced, estimated at 15-20%. 4. The left ventricular diastolic function is grade III diastolic dysfunction. 5. Right ventricular systolic function is normal. 6. Left atrial chamber dimension is moderately enlarged. 7. There is severe mitral valve regurgitation. 8. There is mild tricuspid valve regurgitation. Left Ventricle Left ventricular chamber dimension is severely enlarged. Left ventricular systolic function is severely reduced, estimated at 15-20%. There is no increased left ventricular wall thickness. Left ventricular septal wall motion is abnormal with septal motion related to bundle branch block. The left ventricular diastolic function is grade III diastolic dysfunction. Global longitudinal strain is abnormal at -6 %. Right Ventricle Right ventricular chamber dimension is normal. Right ventricular systolic function is normal. Left Atria Left atrial chamber dimension is moderately enlarged. Right Atria Right atrial chamber dimension is normal. Atrial Septum Intact interatrial septum visualized by color flow imaging. Aortic Valve The aortic valve is trileaflet. There is no aortic valve stenosis. There is no aortic valve regurgitation. Pulmonic Valve The pulmonic valve is normal. There is trace pulmonic regurgitation. Mitral Valve The mitral valve has normal leaflets. There is severe mitral valve regurgitation. Tricuspid Valve There is mild tricuspid valve regurgitation. Pericardium/Pleural There is no pericardial effusion. Inferior Vena Cava Normal inferior vena cava with >50% collapse upon inspiration consistent with normal right atrial pressure, 3 mmHg. Aorta The aortic root size at the sinus of Valsalva is normal. Left Ventricular Outflow Tract Name Value Normal LVOT 2D LVOT Diameter 2.0 cm LVOT Doppler LVOT Peak Gradient 2 mmHg LVOT Mean Gradient 1 mmHg LVOT VTI 9 cm LVOT VTI/AV VTI Ratio 0.8 LVOT Stroke Volume 26 ml LVOT CO 2.8 l/min
[2022-09-03] MEDS: ASPIRIN 81 MG CHEWABLE TABLET 324 MG PO (06:41)
[2022-09-03] MEDS: FLUTICASONE PROP 110 MCG INHALER 12 GM (*SP) 2 PUFF INHALATION ×2 (08:25→20:00)
--- NOTE | 2022-09-03 08:44 | PM.CNCAR ---
Assessment and Plan Assessment and plan (1) Acute CHF (congestive heart failure): Qualifiers: Heart failure type: unspecified Qualified Code(s): I50.9 - Heart failure, unspecified Code(s): I50.9 - Heart failure, unspecified Status: Acute Assessment and Plan: the patient has had shortness of breath for quite some time and now presents with actual heart failure. She has improved after IV furosemide. -- Continue diuretics -- continue beta-kenneth -- at other CHF meds as blood pressure tolerates -- echo pending -- monitor electrolytes and renal function (2) Acute non-ST elevation myocardial infarction (NSTEMI): Code(s): I21.4 - Non-ST elevation (NSTEMI) myocardial infarction Status: Acute Assessment and Plan: The patient has had a variety of chest pains with some of them sound anginal, suggestive of acute coronary syndrome, particularly since her troponins are mildly elevated. -- Recommend cardiac catheterization to the patient and her . Reviewed the procedure in detail. Reviewed possible risks and complications with patient including breathing problems, bleeding problems, blood vessel problems, unanticipated surgery, allergic reactions, kidney problems, CVA, IL, and among others. Discussed possibility of stenting and possible need for DAPT. Discussed the possibility that if DAPT is interrupted stent thrombosis can occur resulting in heart attack and . Patient understands risks and desires to proceed. (3) Left bundle branch block: Code(s): I44.7 - Left bundle-branch block, unspecified Status: Acute Assessment and Plan: New bundle branch block, since June noted. Often associated with heart disease. History of Present Illness History of Present Illness Consult date/time: 09/03/22 08:44 Reason For Visit: ACUTE HYPOXIC RESP FAILURE,NEW ONSET CHF,LBBB,ELEV Narrative: Olga Dang is a 62 y.o. female whom I was asked to see at the request of ER SHERIN Diop for my advice and opinion regarding her CHF in consultation. Ms. Dang has had problems with shortness of breath since she had COVID in 2020. She also had pneumonia in March and was discharged with home oxygen. However she continues to have ARMENTA and shortness of breath as well as intermittent tachycardia (and apparently some bradycardia as well? ). She has beenseeing one of our pulmonologists to sort this out. Her shortness of breath has been worse in the past month. In addition she has had substernal chest pain. Sometimes it is a generalized aching all across her chest , and sometimes a sharp pain. However, Over the past 2 weeks, she has had a tightness radiating to her back both at rest and with activity. It feels like a gripping pain where chest gets really tight (she gives me the closed fist sign over her sternum) which has been getting worse. She notes a weight gain of about 13 lb over the last 1 or 2 months. She has had some lower extremity swelling. No PND orthopnea but she uses CPAP. She came to the emergency room yesterday because of worsening shortness of breath hypoxia O2 sats dropping into the 80s at. When she came to the emergency room she was tachycardic and EKG showed a new left bundle-branch block, new compared to June. Troponins were mildly elevated at 0.086, 0.106 and 0.112, and her proBNP was 6800. Her chest x-ray showed some mild CHF as did her CTA . She was thought not to be a STEMI but treated for heart failure. She had a another episode of gripping chest tightness late last night /early this morning which lasted about hour. She was placed on heparin in the emergency room and is not having any chest pain this morning. Her shortness of breath has been better since her IV Lasix. She has not had an echo for more than 1 year. She did see Dr. Mensah recently who has scheduled her for an outpatient cardiac catheterization at [facility]
[2022-09-03] MEDS: UMECLIDINIUM BROMIDE 62.5 MCG ELLIPTA 1 PUFF INHALATION (08:45)
--- NOTE | 2022-09-03 08:55 | ECG_ITS ---
Measurements Intervals Roxana Rate: 109 P: 54 MT: 168 QRS: -46 QRSD: 146 T: 74 QT: 401 QTc: 541 Interpretive Statements SINUS TACHYCARDIA LEFT AXIS DEVIATION POSSIBLE LEFT ATRIAL ENLARGEMENT LEFT BUNDLE BRANCH BLOCK ABNORMAL ECG COMPARED TO ECG 09/02/2022 17:16:28 NO SIGNIFICANT CHANGES Electronically Signed On 09-03-2022 12:50:20 CDT by Aris Rose D.O.
[2022-09-03] MEDS: carvediloL 3.125 MG TABLET PO (10:45)
[2022-09-03] MEDS: ATORVASTATIN 40 MG TABLET PO (10:46)
[2022-09-03] MEDS: buPROPion HCL XL (24 HR) 150 MG TABCR PO (10:46)
[2022-09-03] MEDS: PANTOPRAZOLE 40 MG TABLET PO (10:46)
[2022-09-03 11:38] LABS: Partial Thromboplastin Time 121.8 SECONDS (22.3-36.8)
[2022-09-03] MEDS: SODIUM CHLORIDE 0.9% IV 500 ML 100 ML IV CONT (12:26)
--- NOTE | 2022-09-03 14:40 | WPDHPUPDATE1 ---
History and Physical Update Update Date/Time: 09/03/22 14:40 History and Physical has been reviewed, including an updated exam of the patient. other than Echo showing severe LV dysfxn and mitral regurgitaton, there are NO changes in the patient's condition. Risks, benefits, and alternatives have been discussed and questions answered. Patient agrees to proceed with procedure.
--- NOTE | 2022-09-03 14:41 | WPDMODSED ---
Moderate Sedation Note-Pt Data Patient Data Allergies Allergy/AdvReac Type Severity Reaction Status Date / Time No Known Drug Allergies Allergy Unknown Unknown Verified 09/02/22 17:25 Home Medications Medication Instructions Recorded Confirmed Type albuterol sulfate 90 mcg/actuation 1 inh inhalation Q4-6H PRN 06/16/21 09/02/22 History breath activated powder inhaler Bronchospasm bupropion HCl 150 mg 24 hr tablet, 150 mg PO QAM 06/16/21 09/02/22 History extended release (Wellbutrin XL) budesonide 0.5 mg/2 mL suspension 0.5 mg inhalation DAILY 09/02/22 09/02/22 History for nebulization diltiazem HCl 120 mg 120 mg PO DAILY 09/02/22 09/02/22 History capsule,extended release 24 hr fluticasone furoate 100 1 inh inhalation DAILY 09/02/22 09/02/22 History mcg/actuation blister powder for inhalation (Arnuity Ellipta) omeprazole 40 mg capsule,delayed 40 mg PO DAILY 09/02/22 09/02/22 History release tiotropium bromide 18 mcg capsule 1 cap inhalation DAILY 09/02/22 09/02/22 History with inhalation device (Spiriva with HandiHaler) Current Medications: Active Medications Aspirin (Aspirin 81 Mg Chewable Tablet) 81 mg PO DAILY@0800 [facility] Atorvastatin Calcium (Atorvastatin 40 Mg Tablet) 40 mg PO DAILY [facility] Last Admin: 09/03/22 10:46 Dose: 40 mg Bupropion HCl (Bupropion Hcl Xl (24 Hr) 150 Mg Tabcr) 150 mg PO QAM [facility] Last Admin: 09/03/22 10:46 Dose: 150 mg Carvedilol (Carvedilol 3.125 Mg Tablet) 3.125 mg PO Q12HR [facility] Last Admin: 09/03/22 10:45 Dose: 3.125 mg Fluticasone Propionate (Fluticasone Prop 110 Mcg Inhaler 12 Gm (*Sp)) 2 puff INHALATION Q12HRT [facility] Last Admin: 09/03/22 08:25 Dose: 2 puff Furosemide (Furosemide Inj 40 Mg/4 Ml Vial) 40 mg IV PUSH Q12HR [facility] Last Admin: 09/03/22 10:47 Dose: Not Given Heparin Sodium (Porcine) (Heparin Sodium 5,000 Units/Ml Vial) 4,000 units IV PUSH PRN PRN PRN Reason: aPTT less than 55 seconds Heparin Sodium (Porcine) (Heparin Sodium 5,000 Units/Ml Vial) 2,500 units IV PUSH PRN PRN PRN Reason: aPTT 55 - 70 seconds Heparin Sodium/Dextrose (Heparin Sodium/D5w 100 Units/Ml) 25,000 units in 250 mls @ 7 mls/hr IV CONT .Q24H [facility]; Protocol Last Titration: 09/03/22 12:24 Dose: 700 units/hr, 7 mls/hr Sodium Chloride (Normal Saline Iv) 500 mls @ 100 mls/hr IV CONT .Q5H [facility] Last Admin: 09/03/22 12:26 Dose: 100 mls/hr Nitroglycerin (Nitroglycerin Sl 0.4 Mg Tablet) 0.4 mg SUBLINGUAL Q5MIN PRN PRN Reason: Chest Pain Pantoprazole Sodium (Pantoprazole 40 Mg Tablet) 40 mg PO QAM [facility] Last Admin: 09/03/22 10:46 Dose: 40 mg Perflutren Lipid Microsphere (Perflutren Lipid Microspheres 1.5 Ml Vial Diluted To 10 Ml Total Volume) 0 ml IV PUSH ONCE PRN; Protocol PRN Reason: adequate visualization Stop: 09/04/22 20:57 Umeclidinium [place] (Umeclidinium [place] 62.5 Mcg Ellipta) [facility] Last Admin: 09/03/22 08:45 Dose: 1 puff Sedation/Anesthesia: No previous sedation/anesthesia problems (including family history). [facility] Past Medical History Medical History Anxiety COPD (chronic obstructive pulmonary disease) GERD (gastroesophageal reflux disease) Hemochromatosis Hypertension Mitral valve prolapse JASPAL (obstructive sleep apnea) PONV (postoperative nausea and vomiting) Surgical History Surgical History H/O neck surgery H/O shoulder surgery Hx laparoscopic cholecystectomy 06/27/21 S/P bilateral breast reduction S/P carpal tunnel release Family History Family History Father Patient's father is , Onset Age: 80 Family history of chronic obstructive pulmonary disease Heart disease Atrial fibrillation Cerebrovascular accident Aneurysm Mother , age 75 Pancreatic cancer Sibling Family history of ma
--- NOTE | 2022-09-03 15:19 | PM.OP ---
Procedure Note - Brief Procedure Note - Brief Date of procedure: 09/03/22 Pre-op diagnosis: ACUTE HYPOXIC RESP FAILURE,NEW ONSET CHF,LBBB,ELEV CHF, CP elevated trop, cardiomyopathy Post-op diagnosis: Same Procedure performed: left heart cath w/ consious sedation Description of procedure: uneventful cardiac cath Surgeon: Marifer Cornelius MD Complications: No immediate complications Condition: Stable Disposition: Observation Findings: Normal coronary arteries Elevated LVEDP c/w CHF
--- NOTE | 2022-09-03 15:21 | WPDCARDPROC ---
Cardiac Cath Procedure Note Date of procedure:: 09/03/22 Performing physician:: Marifer Cornelius MD Indication:: CHF, chest pain, cardiomyopathy, elevated troponins Brief clinical history:: Olga Dang this 62-year-old female with history of hemochromatosis who has had ARMENTA since COVID in 2020. She has also been having progressive shortness of breath over the past months as well as chest pain. She was admitted with CHF last night and was found have elevated troponins. She complains of chest pain at is consistent with ACS. EKG shows a new LBBB. Procedure Procedure performed:: Procedure: 1. Conscious sedation 2. Left heart catheterization 3. Selective Coronary angiography 4. Angiography of the right common femoral artery Sedation/Medication given:: Conscious sedation: The patient has no known prior history of adverse affects of conscious sedation. Oropharynx was clear. The patient is deemed a good candidate for conscious sedation. Conscious sedation began at: 2:47 p.m. Conscious sedation ended at: 3:05 p.m. Total conscious sedation time: 18 minutes Medications: Versed 1 mg, fentanyl 50 mcg IV push The patient had continuous hemodynamic monitoring, and was also continuously monitored by: Angelica Avendano RN The patient tolerated conscious sedation well. Access site:: right femoral artery Procedure note:: Catheters: 5 Samoan arterial sheath, 5 Samoan 4 cm right and left Fletcher catheters, 5 Samoan pigtail catheter Detailed procedure: After informed consent the patient brought to the laboratory chemist and the right femoral area was prepped and draped in the usual fashion. After conscious sedation and local anesthesia the right femoral artery was punctured and cannulated with the arterial sheath. Selective Coronary angiography was performed with the coronary catheters in multiple projections. These were withdrawn. The pigtail catheter was advanced into the central circulation and left ventricle for pressure measurement. no LV g was performed. This was withdrawn. Later Angiography the right common femoral artery was performed, the arterial sheath was removed and hemostasis was obtained using and Angio-Seal. The patient tolerated the procedure well with no complications. Estimated blood loss was negligible. Findings:: Pressures: LV pressure 100 / 29 mmHg Aortic pressure 118/ 62 mmHg Left coronary artery The left main, left anterior descending and circumflex vessels were widely patent and free of disease. Right coronary artery : The right coronary artery was dominant and free of disease. Conclusion:: 1. Normal coronary arteries 2. Elevated left ventricular end-diastolic pressure consistent with CHF Assessment and Plan Assessment and plan (1) Acute CHF (congestive heart failure): Qualifiers: Heart failure type: unspecified Qualified Code(s): I50.9 - Heart failure, unspecified Code(s): I50.9 - Heart failure, unspecified Status: Acute Assessment and Plan: Found have a cardiomyopathy and severe mitral regurgitation echo. (2) Chest pain: Code(s): R07.9 - Chest pain, unspecified Status: Acute Assessment and Plan: Different types of chest pain, some standing anginal. (3) Hemochromatosis: Code(s): E83.119 - Hemochromatosis, unspecified Status: Acute Plan Assessment: Combined with echo findings, cardiac catheterization shows the patient has a dilated cardiomyopathy. She does have a history of hemochromatosis and that may be the etiology, as well as a history of COVID infection. Or perhaps this is an 80 pathic dilated cardiomyopathy. It is likely that the severe mitral regurgitation is secondary to annular dilatation, not the primary problem, is as there is no prolapse, flail leaflet etc. Recommendations: Continue to treat the patient with guideline directed medical therapy, with beta-kenneth, Entresto, SGLP1 inhibitor, and spirono
--- NOTE | 2022-09-03 17:33 | PM.IMPN ---
Progress Note: A&P Assessment and Plan (1) Acute CHF (congestive heart failure): Qualifiers: Heart failure type: unspecified Qualified Code(s): I50.9 - Heart failure, unspecified Code(s): I50.9 - Heart failure, unspecified Status: Acute Assessment and Plan: Patient presents with chest pain and SOB and found to be hypoxic. BNP 6800. Positive Troponin. CXR showing pulmonary edema. Echo showing EF 15-20% with grade III diastolic dysfunction. She has hemochromatosis but Dr Jhaveri did not feel her hemochrom was severe enough to cause her dilated nonischemic CMP. She has acute diastolic and systolic CHF. Started on Metoprolol, Entresto, Empagliflozin, and Spironolactone. DDimer positive but no evidence of PE. EF is 15% but no LV thrombus. Check LE doppler. Probably home with LifeVest given the new left BBB and low EF. Continue to monitor. (2) Acute non-ST elevation myocardial infarction (NSTEMI): Code(s): I21.4 - Non-ST elevation (NSTEMI) myocardial infarction Status: Acute Assessment and Plan: Patient with elevated troponins and new left bundle branch block. Cardiology consulted and she underwent LHC today. Ho signifincat coronary disease noted. Suspect Type II [place]. Medical management as above. (3) Acute respiratory failure with hypoxia: Code(s): J96.01 - Acute respiratory failure with hypoxia Status: Acute Assessment and Plan: Patient with history of COPD has been off oxygen for 9 months, now desaturating to 86% with ambulation. [place] related to the acute CHF. Symptoms better and on room air. Will see how she does with ambulation. Patient already follows up with her call center director. (4) Hemochromatosis: Code(s): E83.119 - Hemochromatosis, unspecified Status: Acute Assessment and Plan: Follows with Dr Jhaveri. Will have her follow up with him after discharge (5) JASPAL (obstructive sleep apnea): Code(s): G47.33 - Obstructive sleep apnea (adult) (pediatric) Status: Acute Assessment and Plan: Continue CPAP here. Subjective Date/time seen: 09/03/22 17:33 Interval history: 62yo female with hx of COPD, hemochromatosis, HTN and JASPAL here for SOB and found to be hypoxic. Feeling better. No CP. SOB better. No longer smokes. Has family hx of hemochromatosis. Some family members have issues with adrenal gland function and pancreatic function. Exam Narrative: AF 96.9 96/65 101 20 100% ra Gen - NARD Chest - few basilar rhonchi o/w clear CV - RRR S1/S2. Tele showing sinus tachycardia Abd - Soft, NT/ND, Positive BS Ext - No pedal edema Psych - Nml mood and affect Skin - Warm and dry Objective Data Vital Signs Vital Signs: Vital Signs - 24 hr 09/02/22 17:59 09/02/22 18:30 09/02/22 18:00 Temperature Pulse Rate 121 H 106 H Respiratory Rate 30 H 17 Blood Pressure 113/71 Pulse Oximetry 100 97 Oxygen Delivery Room Air 09/02/22 19:23 09/02/22 19:15 09/02/22 19:45 Temperature Pulse Rate 119 H 130 H 134 H Respiratory Rate 24 H 24 H 20 Blood Pressure 113/71 100/61 Pulse Oximetry 98 99 Oxygen Delivery 09/02/22 20:05 09/02/22 22:00 09/02/22 22:35 Temperature 97.7 F Pulse Rate 115 H 119 H 98 Respiratory Rate 21 H 21 H 18 Blood Pressure 94/67 L 106/82 86/63 L Pulse Oximetry 99 96 97 Oxygen Delivery 09/02/22 22:46 09/03/22 00:00 09/03/22 00:00 Temperature Pulse Rate 98 98 107 H Respiratory Rate 18 Blood Pressure Pulse Oximetry 97 Oxygen Delivery Room Air 09/03/22 02:00 09/03/22 04:00 09/03/22 04:00 Temperature Pulse Rate 114 H 107 H 114 H Respiratory Rate 18 Blood Pressure Pulse Oximetry 97 Oxygen Delivery Room Air 09/03/22 04:00 09/03/22 06:00 09/03/22 08:00 Temperature 97.8 F 98.0 F Pulse Rate 88 104 H 57 L Respiratory Rate 20 20 Blood Pressure 92/46 L 84/56 L Pulse Oximetry 97 98 Oxygen Delivery 09/03/22 09:56 09/03
[2022-09-03] MEDS: traMADol HCL (*CRX) 25 MG TABLET PO (17:34)
[2022-09-03] MEDS: FUROSEMIDE INJ 40 MG/4 ML VIAL 20 MG IV PUSH (17:35)
[2022-09-03] MEDS: SACUBITRIL/VALSARTAN 12-13 MG TABLET 1 TAB PO (22:39)
[2022-09-03] MEDS: METOPROLOL TARTRATE 12.5 MG TABLET PO (22:39)
[2022-09-04] VITALS (21 sets, daily range): BP systolic 82–99; BP diastolic 51–66; PULSE 81–115; RESP 16–20; TEMP 36.3–36.5; O2SAT 97–100
--- NOTE | 2022-09-04 02:39 | ECG_ITS ---
Measurements Intervals [place] Rate: 87 P: 59 FL: 182 QRS: -50 QRSD: 153 T: 90 QT: 458 QTc: 553 Interpretive Statements SINUS RHYTHM LEFT AXIS DEVIATION LEFT BUNDLE BRANCH BLOCK ABNORMAL ECG COMPARED TO ECG 09/03/2022 12:06:54 SINUS RHYTHM NOW PRESENT Electronically Signed On 09-04-2022 7:15:42 CDT by Aris Rose D.O.
--- NOTE | 2022-09-04 03:16 | PC.NURSE ---
MD Called/Cardiology paged at 0300 after patient awoke with chest pain, groin pain, upper back pressure, and increase in anxiety. Patient rates the pain as a 6 out of 10. Neeta () alerted, EKG completed showing no new changes. MD utilized sonosite to check patient's groin site. Found small hematoma. MD ordered xanax to assist the patient's increased anxiousness. CXR completed. No new orders to follow at this time. Will continue to monitor patient.
[2022-09-04] MEDS: ALPRAZolam (*CRX) 0.125 MG TABLET PO (03:22)
--- NOTE | 2022-09-04 03:31 | P.PNCROSS_ITS ---
Event Note Event Note Event Note: 09/04/2022 at 03:10 Nursing staff called as the patient had had a catheterization earlier in the day start having a back pain that radiated anteriorly to substernal. The pain is a 4/10 in intensity. It was accompanied by sensation of shortness of breath and occurred after she had been up to the restroom. It was accompanied by hypotension. Patient has been having mild hypotension throughout the day. The patient's Entresto apparently was just increased. The patient was not diaphoretic. The patient cannot give a quality to the pain but states that is worse when she takes a deep breath. She reports the sensation of feeling as if something is caught in her airway and states that she can feel it when she tries to cough. She states that she is afraid to tried cough. The patient is not desaturating but is having some mild intermittent tachycardia. The patient's ma p has remained 64 or better. The patient states that it does feel like episodes when she has been anxious in the past. She stated that she did become anxious when staff had gotten her up to ambulate to the bathroom. Nursing staff also states that the patient recently had someone who after similar procedure. While I was in the room I did manage to distract the patient talking about other local events. The ICU charge nurse was in the room with me and also appreciated that the patient seemed to visibly relax her shoulders relaxed. Her breathing became more natural. In the patient's facial expression improved. She seemed much more comfortable. I given order for 1 time dose of Xanax 0.125 mg. I had nursing staff call the natural remedy consultant because nursing staff had been concerned about possible dissection given her symptoms. The natural remedy consultant recommended giving the patient morphine. However was not comfortable doing this is the patient was already hypotensive is with blood pressures of 85/53. I did not feel comfortable re CTAing the patient since she had had a cardiac catheterization on the and a CT of the chest abdomen pelvis on the . I did look at the patient's femoral artery site there was a small amount of adjacent hematoma but otherwise was unremarkable no bruit appreciated, lungs were clear to auscultation bilaterally. I get provided reassurance to the p atient told her that her heart catheterization demonstrated no narrowing of her arteries. As explained that some of her sense of shortness of breath is likely due to her heart failure and that this will get better with treatment. She verbalized understanding and she seemed to come down somewhat also. Given the patient's improvement in symptoms dissection as much less likely. I feel the patient's hypotension is due to her antihypertensives and recent diuretic administration. 30 minute spent critical care activities. Due to a high probability of clinically significant, life threatening det erioration, the patient required my highest level of preparedness to intervene emergently and I personally spent this critical care time directly and personally managing the patient. This critical care time included obtaining a history; examining the patient; pulse oximetry; ordering and review of studies; arranging urgent treatment with development of a management plan; evaluation of patient's response to treatment; frequent reassessment; and discussions with other providers. It was exclusive of separately billable procedures and treating other patients and teaching time. Please see Assessment and Plan section and the rest of the note for further information on patient assessment and treatment.
[2022-09-04 04:49] LABS: Hemoglobin 11.4 g/dL (12.0-15.0); Mean Corpuscular HGB Conc 32.6 g/dl (32-36); Mean Corpuscular Hemoglobin 30.7 pg (26-34); Mean Corpuscular Volume 94.3 fl (80-100); Mean Platelet Volume 10.2 fl (7.4-10.4); Platelet Count Result 291 k/mm3 (150-375); Red Blood Count 3.71 M/mm3 (4.2-5.4); Red Cell Distribution Width 11.9 % (11.5-14.5)
[2022-09-04 05:08] LABS: Anion Gap 8 mmol/L (8-16); Blood Urea Nitrogen 24 mg/dL (7-17); Calcium 8.4 mg/dL (8.4-10.2); Carbon Dioxide 29 mmol/L (22-30); Chloride 100 mmol/L (98-107); Estimated CRCL calculation 43 ml/min; Estimated Glomerular Filt Rate 50; Glucose 119 mg/dL (65-110); Lipase 48 U/L (23-300); Potassium 3.8 mmol/L (3.4-5.0); Sodium 137 mmol/L (137-145)
[2022-09-04 05:37] LABS: Cortisol Random 6.82 ug/dL
[2022-09-04] MEDS: FLUTICASONE PROP 110 MCG INHALER 12 GM (*SP) 2 PUFF INHALATION ×2 (09:05→20:25)
[2022-09-04] MEDS: UMECLIDINIUM BROMIDE 62.5 MCG ELLIPTA 1 PUFF INHALATION (09:05)
[2022-09-04] MEDS: EMPAGLIFLOZIN 10 MG TABLET PO (09:39)
[2022-09-04] MEDS: buPROPion HCL XL (24 HR) 150 MG TABCR PO (09:39)
[2022-09-04] MEDS: PANTOPRAZOLE 40 MG TABLET PO (09:39)
--- NOTE | 2022-09-04 13:13 | PM.PNCARD ---
Progress Note: A&P Assessment and Plan (1) Acute CHF (congestive heart failure): Qualifiers: Heart failure type: unspecified Qualified Code(s): I50.9 - Heart failure, unspecified Code(s): I50.9 - Heart failure, unspecified Status: Acute Assessment and Plan: the patient has had shortness of breath for quite some time and now presents with actual heart failure. She has improved after IV furosemide. -- Looks euvolemic on exam at this point. P.r.n. diuretics -- continue GDMT as BP allows (would prefer that she have the entresto and jardiance at minimum; jardiance should not alter her blood pressure) -- monitor electrolytes and renal function (2) Chest pain: Code(s): R07.9 - Chest pain, unspecified Status: Acute (3) Hemochromatosis: Code(s): E83.119 - Hemochromatosis, unspecified Status: Acute (4) Cardiomyopathy: Code(s): I42.9 - Cardiomyopathy, unspecified Status: Acute Assessment and Plan: New diagnosis, EF 15-20%. She also has grade III diastolic dysfunction. Severe MR. Medical therapy as her BP tolerates with Entresto, metoprolol, spironolactone, and jardiance LifeVest order has been placed Eventual cardiac MRI as outpatient Subjective Date/time seen: 09/04/22 13:13 Cardiology follow up for cardiomyopathy She is feeling better today. Denies any shortness of breath or palpitations. She does report some severe chest pain last night and early this morning. Describes this as a squeezing sensation that radiates to her back. This has been happening intermittently for about a year according to the patient. Review of Systems Constitutional: Constitutional: Denies fever(s) Eyes: Eyes: Reports no additional eye complaints ENT: Denies epistaxis Cardiovascular: Cardiovascular: Denies chest pain, Denies pedal edema, Denies lightheadedness, Reports dyspnea and Reports dyspnea on exertion Respiratory: Respiratory: Denies chest congestion, Reports dyspnea and Reports dyspnea on exertion Gastrointestinal: Gastrointestinal: Denies abdominal pain and Denies hematochezia Genitourinary: Genitourinary: Denies dysuria Musculoskeletal: Musculoskeletal: Reports back pain and Reports arthralgias Integumentary/Breasts: Skin/Breast: Reports system reviewed and no additional complaints, except as docu Neurologic: Reports system reviewed and no additional complaints, except as documented, Denies behavioral changes and Denies confusion Psychiatric: Psychiatric: Denies behavioral changes and Denies confusion Exam Const: General: cooperative, healthy appearing and comfortable; No confusion Orientation/consciousness: oriented to person, patient oriented x3 and No confusion HENMT: Mouth: Yes moist mucous membranes Eyes: General: appearance normal, both eyes and all related structures EOM: EOMs intact bilaterally Neck: Neck: supple and no JVD Thyroid: thyroid normal Carotids: no bruits Resp: Effort & Inspection: normal respiratory effort Auscultation: clear to auscultation bilaterally Cardio: Rate: regular rate Rhythm: regular rhythm Heart sounds: Gallop heart sound present and no murmurs Other: Pedal pulses are intact bilaterally GI: Inspection: normal to inspection Skin: General skin exam: normal color and no rashes or lesions noted Other: Right groin arterial access site free from bleeding, hematoma Neuro: General: oriented to person, patient oriented x3 and No confusion Extrem: Right lower extremity: no edema Left lower extremity: no edema Psych: Appearance: grossly normal Mental Status: mental status grossly normal Objective Data Vital Signs Vital Signs: Vital Signs - 24 hr 09/03/22 14:00 09/03/22 15:20 09/03/22 15:45 Temperature Pulse Rate 81 101 H Pulse Rate [Bilateral Pedal (Dorsalis Pedis)] Respiratory Rate 20 Blood Pressure 91/65 L 98/73 L Pulse Oximetry 95 Oxygen Delivery Room Air
--- NOTE | 2022-09-04 16:30 | PM.IMPN ---
Progress Note: A&P Assessment and Plan (1) Acute CHF (congestive heart failure): Qualifiers: Heart failure type: unspecified Qualified Code(s): I50.9 - Heart failure, unspecified Code(s): I50.9 - Heart failure, unspecified Status: Acute Assessment and Plan: Patient presents with chest pain and SOB and found to be hypoxic. BNP 6800. Positive Troponin. CXR showing pulmonary edema. Echo showing EF 15-20% with grade III diastolic dysfunction. She has hemochromatosis but Dr Jhaveri did not feel her hemochromatosis was severe enough to cause her dilated nonischemic CMP. She has acute diastolic and systolic CHF. Started on Metoprolol, Entresto, Empagliflozin, and Spironolactone. DDimer positive but no evidence of PE. EF is 15% but no LV thrombus. LE doppler negative for DVT. BP low and med held this morning. Probably home with LifeVest given the new left BBB and low EF. Continue to monitor. Place BP parameters on her medications. Home when BP more stable. (2) Hypotension: Code(s): I95.9 - Hypotension, unspecified Status: Acute Assessment and Plan: As above. HoTN related to severe CMP. Relatively asymptomatic. Place parameters on her medications. (3) Acute non-ST elevation myocardial infarction (NSTEMI): Code(s): I21.4 - Non-ST elevation (NSTEMI) myocardial infarction Status: Acute Assessment and Plan: Patient with elevated troponins and new left bundle branch block. Cardiology consulted and she underwent LHC showing normal coronaries. Suspect Type II [place] related to CHF. Medical management as above. (4) Acute respiratory failure with hypoxia: Code(s): J96.01 - Acute respiratory failure with hypoxia Status: Acute Assessment and Plan: Patient with history of COPD who had been off oxygen for 9 months found to have SpO2 86% with ambulation. [place] related to the acute CHF. Symptoms better and on room air now. Normal SpO2 with ambulation. Patient already follows with a rn or lpn. (5) Cardiomyopathy: Code(s): I42.9 - Cardiomyopathy, unspecified Status: Acute Assessment and Plan: As above. (6) Severe mitral regurgitation: Code(s): I34.0 - Nonrheumatic mitral (valve) insufficiency Status: Acute Assessment and Plan: [place] due to the severe dilated CMP but not the cause of the CMP. (7) JASPAL (obstructive sleep apnea): Code(s): G47.33 - Obstructive sleep apnea (adult) (pediatric) Status: Acute Assessment and Plan: Continue CPAP here. (8) Hemochromatosis: Code(s): E83.119 - Hemochromatosis, unspecified Status: Acute Assessment and Plan: Follows with Dr Jhaveri. Will have her follow up with him after discharge Subjective Date/time seen: 09/04/22 16:30 Interval history: 62yo female with hx of COPD, hemochromatosis, HTN and JASPAL here for SOB and found to be hypoxic. Slept poorly last night. Having positional type chest pain; worse when lying on her side but better when on her back. Lightheaded with walking yesterday but better today. Exam Narrative: AF 96.9 96/65 101 20 100% ra Gen - NARD Chest - CTA bilaterally, nml RR CV - RRR S1/S2. Tele showing no significant dysrhythmias Abd - Soft, NT/ND, Positive BS Ext - No pedal edema Psych - Nml mood and affect Skin - Warm and dry Objective Data Vital Signs Vital Signs: Vital Signs - 24 hr 09/03/22 16:46 09/03/22 17:16 09/03/22 18:16 Temperature 97.1 F L 96.9 F L 97.2 F L Pulse Rate 93 101 H 105 H Pulse Rate [Bilateral Pedal (Dorsalis Pedis)] Respiratory Rate 20 20 16 Blood Pressure 85/51 L 96/65 L 108/57 L Pulse Oximetry 99 100 99 Oxygen Delivery 09/03/22 18:00 09/03/22 19:00 09/03/22 20:15 Temperature 97.3 F L 97.3 F L Pulse Rate 105 H 103 H 104 H Pulse Rate [Bilateral Pedal (Dorsalis Pedis)] Respiratory Rate 20 20 Blood Pressure 91/62 L 83/59 L Pulse Oximetry 9
[2022-09-04] MEDS: SACUBITRIL/VALSARTAN 12-13 MG TABLET 1 TAB PO (20:10)
[2022-09-04] MEDS: METOPROLOL TARTRATE 12.5 MG TABLET PO (20:12)
[2022-09-05] VITALS (14 sets, daily range): BP systolic 78–114; BP diastolic 47–70; PULSE 69–125; RESP 18–20; TEMP 35.9–36.5; O2SAT 90–100
[2022-09-05] MEDS: PANTOPRAZOLE 40 MG TABLET PO (08:19)
[2022-09-05] MEDS: buPROPion HCL XL (24 HR) 150 MG TABCR PO (08:19)
[2022-09-05] MEDS: EMPAGLIFLOZIN 10 MG TABLET PO (08:19)
[2022-09-05] MEDS: LORazepam (*CRX) 0.5 MG TABLET PO (08:46)
[2022-09-05] MEDS: FLUTICASONE PROP 110 MCG INHALER 12 GM (*SP) 2 PUFF INHALATION (08:56)
[2022-09-05] MEDS: UMECLIDINIUM BROMIDE 62.5 MCG ELLIPTA 1 PUFF INHALATION (08:56)
--- NOTE | 2022-09-05 12:24 | PM.DS ---
DS: Admitting Diagnosis Discharge Date 09/05/22 Admitting Diagnosis sob DS: Discharge Diagnosis Discharge Diagnosis (1) Acute CHF (congestive heart failure): Qualifiers: Heart failure type: unspecified Qualified Code(s): I50.9 - Heart failure, unspecified Code(s): I50.9 - Heart failure, unspecified Status: Acute Assessment and Plan: Patient presents with chest pain and SOB and found to be hypoxic. BNP 6800. Positive Troponin. CXR showing pulmonary edema. Echo showing EF 15-20% with grade III diastolic dysfunction. She has hemochromatosis but Dr Jhaveri did not feel her hemochromatosis was severe enough to cause her dilated nonischemic CMP. She has acute diastolic and systolic CHF. Started on Metoprolol, Entresto, Empagliflozin, and Spironolactone. DDimer positive but no evidence of PE. EF is 15% but no LV thrombus. LE doppler negative for DVT. BP low and med held this morning. Probably home with LifeVest given the new left BBB and low EF. Continue to monitor. Place BP parameters on her medications. Home when BP more stable. (2) Hypotension: Code(s): I95.9 - Hypotension, unspecified Status: Acute Assessment and Plan: As above. HoTN related to severe CMP. Relatively asymptomatic. Place parameters on her medications. (3) Acute non-ST elevation myocardial infarction (NSTEMI): Code(s): I21.4 - Non-ST elevation (NSTEMI) myocardial infarction Status: Acute Assessment and Plan: Patient with elevated troponins and new left bundle branch block. Cardiology consulted and she underwent LHC showing normal coronaries. Suspect Type II [place] related to CHF. Medical management as above. (4) Acute respiratory failure with hypoxia: Code(s): J96.01 - Acute respiratory failure with hypoxia Status: Acute Assessment and Plan: Patient with history of COPD who had been off oxygen for 9 months found to have SpO2 86% with ambulation. [place] related to the acute CHF. Symptoms better and on room air now. Normal SpO2 with ambulation. Patient already follows with a nurse obgyn. (5) Cardiomyopathy: Code(s): I42.9 - Cardiomyopathy, unspecified Status: Acute Assessment and Plan: As above. (6) Severe mitral regurgitation: Code(s): I34.0 - Nonrheumatic mitral (valve) insufficiency Status: Acute Assessment and Plan: [place] due to the severe dilated CMP but not the cause of the CMP. (7) JASPAL (obstructive sleep apnea): Code(s): G47.33 - Obstructive sleep apnea (adult) (pediatric) Status: Acute Assessment and Plan: Continue CPAP here. (8) Hemochromatosis: Code(s): E83.119 - Hemochromatosis, unspecified Status: Acute Assessment and Plan: Follows with Dr Jhaveri. Will have her follow up with him after discharge DS: Summary Hospital Course Hospital Course: 62yo female with hx of COPD, hemochromatosis, HTN and JASPAL here for SOB and found to be hypoxic. Patient presents with chest pain and SOB and found to be hypoxic. BNP 6800. Positive Troponin. CXR showing pulmonary edema. Echo showing EF 15-20% with grade III diastolic dysfunction. Hematology was consulted because she has hemochromatosis, but Dr Jhaveri did not feel her hemochromatosis was severe enough to cause her dilated nonischemic CMP. She has?acute diastolic and systolic CHF. Started on Metoprolol, Entresto, Empagliflozin, and Spironolactone. DDimer positive but no evidence of PE. EF is 15% but no LV thrombus. LE doppler negative for DVT. BP low and med held this morning. Probably home with LifeVest given the new left BBB and low EF. Cardiology was consulted and recommended outpatient workup to rule out infiltrative cardiomyopathy. She is to follow-up with Cardiology after discharge. She saw her marine technician on outpatient basis and was recommended to get a heart catheterization and is scheduled for this in the next 2 weeks. Due to
--- NOTE | 2022-09-05 12:35 | PM.PNCARD ---
Progress Note: A&P Assessment and Plan (1) Acute CHF (congestive heart failure): Qualifiers: Heart failure type: unspecified Qualified Code(s): I50.9 - Heart failure, unspecified Code(s): I50.9 - Heart failure, unspecified Status: Acute Assessment and Plan: Patient with CHF with severely reduced ejection fraction. No obstructive CAD on coronary angiogram. She has history of hemochromatosis, need to rule out infiltrative cardiomyopathy as an outpatient. -optimal, tolerable GDMT-continue Entresto, Jardiance, spironolactone. Patient is on metoprolol tartrate due to relatively low blood pressures. May consider switching metoprolol tartrate to metoprolol succinate or carvedilol as an outpatient as blood pressure tolerates. -life vest at discharge. -patient was advised to follow-up with Dr Cornelius for further cardiac management and further evaluation for cardiomyopathy. -okay to discharge from a cardiac standpoint (2) Chest pain: Code(s): R07.9 - Chest pain, unspecified Status: Acute (3) Hemochromatosis: Code(s): E83.119 - Hemochromatosis, unspecified Status: Acute (4) Cardiomyopathy: Code(s): I42.9 - Cardiomyopathy, unspecified Status: Acute Assessment and Plan: New diagnosis, EF 15-20%. She also has grade III diastolic dysfunction. Severe MR. Medical therapy as her BP tolerates with Entresto, metoprolol, spironolactone, and jardiance LifeVest at discharge Eventual cardiac MRI as outpatient for further evaluation of cardiomyopathy given history of hemochromatosis Subjective Date/time seen: 09/05/22 12:35 Interval history: 62yo female with hx of COPD, hemochromatosis, HTN and JASPAL here for SOB and found to be hypoxic. Slept poorly last night. Having positional type chest pain; worse when lying on her side but better when on her back. Lightheaded with walking yesterday but better today. 09/05/2022-patient reports dyspnea on exertion, no dyspnea at rest. No chest pain. No palpitation, dizziness or syncope. Awaiting LifeVest. Exam Narrative: PHYSICAL EXAMINATION: GENERAL: Alert, oriented, no acute distress MENTAL STATUS: Anxious EYES: Extraocular movements intact, no pallor EARS: External ears appear normal, hearing grossly normal NOSE: Normal and patent, no discharge MOUTH: Mucous membranes moist, tongue normal NECK: Supple, no JVD CHEST: Good respiratory effort, clear to auscultation HEART: Normal rate, regular rhythm, normal S1 and S2 ABDOMEN: Soft, nontender NEUROLOGICAL: Alert, oriented, normal speech, no gross motor deficits MUSCULOSKELETAL: No major deformity, no amputation EXTREMITIES: Mild pedal edema, no clubbing, no cyanosis SKIN: no rash on the exposed area, no cyanosis PSYCHIATRIC: Normal mood, appropriate affect Objective Data Vital Signs Vital Signs: Vital Signs - 24 hr 09/04/22 14:00 09/04/22 16:00 09/04/22 16:00 Temperature 36.3 C L Pulse Rate 106 H 106 H 101 H Respiratory Rate 16 Blood Pressure 89/55 L Pulse Oximetry 98 Oxygen Delivery 09/04/22 18:00 09/04/22 16:00 09/04/22 20:12 Temperature Pulse Rate 115 H 104 H Respiratory Rate Blood Pressure Pulse Oximetry Oxygen Delivery Room Air 09/04/22 20:26 09/04/22 20:00 09/04/22 20:00 Temperature 36.5 C Pulse Rate 109 H 107 H Respiratory Rate 20 Blood Pressure 99/66 L Pulse Oximetry 98 97 Oxygen Delivery Room Air Room Air 09/04/22 20:00 09/04/22 22:00 09/05/22 00:00 Temperature Pulse Rate 104 H 96 Respiratory Rate Blood Pressure Pulse Oximetry Oxygen Delivery Room Air 09/05/22 00:00 09/05/22 00:00 09/05/22 02:00 Temperature 36.5 C Pulse Rate 89 107 H 85 Respiratory Rate 20 Blood Pressure 87/53 L Pulse Oximetry 97 Oxygen Delivery 09/05/22 04:00 09/05/22 04:00 09/05/22 04:00 Temperature 36.5 C Pulse Rate 75 86 Respiratory Rate 18 Blood P
--- NOTE | 2022-09-05 13:20 | PCRCNOTE ---
HOME OXYGEN EVALUATION COMPLETE; PT. DOES NOT REQUIRE HOME OXYGEN. PT.'S R.N. NOTIFIED OF THE RESULTS.
== END 2022-09-05 14:15 | disposition home or self-care (01) | DRG 280 ==
LOC: ANHED 18:54 → ANHIMU 21:39
PROVIDERS: Internal Medicine; Internal Medicine Cardiovascular Disease; Admitting Provider Internal Medicine; Emergency Provider Physician Assistant; PCP Nurse Practitioner Family; Visit Provider Student in an Organized Health Care Education/Training Program
PROC: 4A023N7 Measurement of Cardiac Sampling and Pressure, Left Heart, Percutaneous Approach (ICD-10-PCS; CPT 93452; principal; 2022-09-03 13:30)
PROC: B215YZZ Fluoroscopy of Left Heart using Other Contrast (ICD-10-PCS; 2022-09-03 13:30)
DX: I11.0 Hypertensive heart disease with heart failure (principal); I50.41 Acute combined systolic (congestive) and diastolic (congestive) heart failure; I21.A1 Myocardial infarction type 2; J96.01 Acute respiratory failure with hypoxia; I95.9 Hypotension, unspecified; I42.9 Cardiomyopathy, unspecified; I34.0 Nonrheumatic mitral (valve) insufficiency; G47.33 Obstructive sleep apnea (adult) (pediatric); E83.119 Hemochromatosis, unspecified; J44.9 Chronic obstructive pulmonary disease, unspecified; Z86.16 Personal history of COVID-19; I44.7 Left bundle-branch block, unspecified; Z20.822 Contact with and (suspected) exposure to COVID-19; Z87.891 Personal history of nicotine dependence
CPT/HCPCS: 36415; 71045; 71046; 71275; 74177; 80048; 80053; 80061; 81001; 82533; 83036; 83690; 83735; 83880; 84443; 84484; 85025; 85027; 85380; 85610; 85730; 87636; 93005; 93306; 93458; 93970; 94618; 94640; 96365; 96366; 96374; 96375; 96376; 99285; A9270; C1760; C1887; C1894; G0269; G0378; J1644; J1940; J2250; J3010; J7040; Q9967

== ENCOUNTER 2022-10-05 20:01 | Emergency (ER) | payer OTHER, SELFPAY ==
[2022-10-05] VITALS (20 sets, daily range): BP systolic 76–102; BP diastolic 42–76; PULSE 72–89; RESP 11–27; TEMP 36.6; O2SAT 94–99
--- NOTE | ~2022-10-05 | XR_ITS ---
EXAMINATION: XR chest 2V Exam Date/Time: 10/05/2022 21:00 CDT HISTORY: palpitations, dizziness. SOB, PALPATATIONS Comparison: 09/04/2022. RESULT: Lines, tubes, and devices: None. Lungs and pleura: Streaky bibasilar atelectasis/scar. No pneumothorax or focal consolidation. Cardiomediastinal silhouette: Stable cardiomegaly. Other: No acute osseous or upper abdominal finding. IMPRESSION: No acute cardiopulmonary process. Reviewed, dictated and finalized at location K.
--- NOTE | 2022-10-05 20:04 | ECG_ITS ---
Measurements Intervals [place] Rate: 94 P: 57 GA: 159 QRS: -21 QRSD: 158 T: 74 QT: 384 QTc: 482 Interpretive Statements SINUS RHYTHM LEFT BUNDLE BRANCH BLOCK BASELINE ARTIFACT- I, II, AVR, AVF, V4-V6 ABNORMAL ECG COMPARED TO ECG 09/04/2022 02:49:40 NO SIGNIFICANT CHANGES Electronically Signed On 10-05-2022 21:10:22 CDT by Aris Rose D.O.
[2022-10-05 21:03] LABS: Basophils Percent Auto 0.4 % (0.2-1.2); Eosinophils Absolute Auto 0.2 K/mm3 (0-0.3); Eosinophils Percent Auto 3.9 % (0-4.4); Hematocrit 35.3 % (37.0-47.0); Hemoglobin 11.4 g/dL (12.0-15.0); Immature Granulocyte Absolute 0.01 K/mm3 (0.00-0.031); Immature Granulocyte Percent A 0.2 % (0-0.5); Lymphocytes Absolute Auto 2.19 K/mm3 (0.9-3.2); Lymphocytes Percent Auto 44.8 % (18.3-44.2); Mean Corpuscular HGB Conc 32.3 g/dl (32-36); Mean Corpuscular Hemoglobin 29.6 pg (26-34); Mean Corpuscular Volume 91.7 fl (80-100); Mean Platelet Volume 9.6 fl (7.4-10.4); Monocytes Absolute Auto 0.6 K/mm3 (0.1-0.6); Monocytes Percent Auto 12.5 % (2.6-8.5); Neutrophils Absolute Auto 1.9 K/mm3 (1.3-6.7); Neutrophils Percent Auto 38.2 % (45.5-73.1); Platelet Count Result 220 k/mm3 (150-375); Red Blood Count 3.85 M/mm3 (4.2-5.4); Red Cell Distribution Width 12.7 % (11.5-14.5); White Blood Count 4.9 K/mm3 (4.5-10.0)
[2022-10-05 21:17] LABS: Partial Thromboplastin Time 33.1 SECONDS (22.3-36.8); Prothrombin Time 14.2 Seconds (11.1-14.7)
[2022-10-05 21:18] LABS: Alanine Aminotransferase 17 U/L (6-35); Alkaline Phosphatase 61 U/L (38-126); Anion Gap 6 mmol/L (8-16); Aspartate Amino Transferase 23 U/L (14-36); Bilirubin,Total 0.4 mg/dL (0.2-1.3); Blood Urea Nitrogen 15 mg/dL (7-17); Calcium 8.8 mg/dL (8.4-10.2); Carbon Dioxide 28 mmol/L (22-30); Chloride 104 mmol/L (98-107); Estimated CRCL calculation 43 ml/min; Estimated Glomerular Filt Rate 50; Glucose 88 mg/dL (65-110); Lipase 119 U/L (23-300); Potassium 3.8 mmol/L (3.4-5.0); Sodium 138 mmol/L (137-145)
[2022-10-05 21:29] LABS: Troponin I < 0.012 ng/mL (0.000-0.034)
[2022-10-06] VITALS (9 sets, daily range): BP systolic 92–99; BP diastolic 55–59; PULSE 76–100; RESP 13–26; O2SAT 80–100
[2022-10-06] MEDS: MECLIZINE HCL 25 MG TABLET PO (00:05)
[2022-10-06] MEDS: SODIUM CHLORIDE 0.9% IV 1,000 ML 999 ML IV CONT (00:06)
[2022-10-06 01:08] LABS: Troponin I < 0.012 ng/mL (0.000-0.034)
--- NOTE | 2022-10-06 02:04 | ED.GENADULT ---
HPI - General Adult General Chief complaint: Arrhythmia/Palpitations Stated complaint: heart racing, headache, life vest on Time Seen by Provider: 10/05/22 21:48 History of Present Illness HPI narrative: Is a 62-year-old female presenting ED with a chief complaint of palpitations and dizziness. Patient says that she is feeling dizzy and lightheaded every time she sits up or walks. She denies vertigo. She denies neurologic findings. She denies diplopia dysarthria or dysphagia or static CO. Patient notes that she has been taking a significant amount of medications for her heart failure. She has lost approximately 10 lb of water weight over the last 2 weeks. She denies chest pain, difficulty breathing, fevers abdominal pain or other complaints. Patient states that her blood pressure usually runs in the 80s. Related Data Home Medications Medication Instructions Recorded Confirmed albuterol sulfate 90 mcg/actuation 1 inh inhalation Q4-6H PRN 06/16/21 09/02/22 breath activated powder inhaler Bronchospasm budesonide 0.5 mg/2 mL suspension 0.5 mg inhalation DAILY 09/02/22 09/02/22 for nebulization fluticasone furoate 100 1 inh inhalation DAILY 09/02/22 09/02/22 mcg/actuation blister powder for inhalation (Arnuity Ellipta) omeprazole 40 mg capsule,delayed 40 mg PO DAILY 09/02/22 09/02/22 release tiotropium bromide 18 mcg capsule 1 cap inhalation DAILY 09/02/22 09/02/22 with inhalation device (Spiriva with HandiHaler) Allergies Allergy/AdvReac Type Severity Reaction Status Date / Time No Known Drug Allergies Allergy Unknown Unknown Verified 10/05/22 20:02 [facility] Past Medical History Medical History Anxiety COPD (chronic obstructive pulmonary disease) GERD (gastroesophageal reflux disease) Heart failure Hemochromatosis Hypertension Mitral valve prolapse JASPAL (obstructive sleep apnea) PONV (postoperative nausea and vomiting) Surgical History Surgical History H/O neck surgery H/O shoulder surgery Hx laparoscopic cholecystectomy 06/27/21 S/P bilateral breast reduction S/P carpal tunnel release Family History Family History Father Patient's father is , Onset Age: 80 Family history of chronic obstructive pulmonary disease Heart disease Atrial fibrillation Cerebrovascular accident Aneurysm Mother , age 75 Pancreatic cancer Sibling Family history of malignant neoplasm, Onset Age: 50 Grandparent , age 65 Carcinoma of colon Family history of lung cancer Family history of dementia Social History Social History Years smoked: 15 Smoking status: Former smoker Tobacco type: cigarettes Smoking end date: 06/07/16 Alcohol intake: never Alcohol use details: 1/MONTH Substance use: never Substance use type: does not use Lack of Transportation: No Lack of Food: Never True Current Housing: I Have Housing Concerned About Future Housing: No Difficulty Paying Gas/Electric Bills: No Difficulty Paying for Meds: No Currently Unemployed: No Education: Decline to Answer Difficulty w/ Childcare or Family Care: No Living arrangements: with family Occupation/Education: retired Spiritual care concerns: No Exam Narrative: APPEARANCE: No apparent distress. Patient is pleasant polite during the interview Head: atraumatic. EYES: EOMI, NOSE: Atraumatic NECK: Trachea midline RESPIRATORY: No increased rate of breathing clear to auscultation CARDIOVASCULAR: RRR, no peripheral edema, lightheadedness is reproducible when the patient stands up ABDOMINAL: Non-distended soft nontender no guarding or rebound MUSCULOSKELETAl: No obvious deformities NEURO: Alert. Cranial nerves 2-12 grossly intact. S
== END 2022-10-06 02:55 | disposition home or self-care (01) ==
PROVIDERS: Emergency Provider Emergency Medicine
DX: E86.0 Dehydration (principal); R42 Dizziness and giddiness; I50.9 Heart failure, unspecified; I11.0 Hypertensive heart disease with heart failure; J44.9 Chronic obstructive pulmonary disease, unspecified; I34.1 Nonrheumatic mitral (valve) prolapse; K21.9 Gastro-esophageal reflux disease without esophagitis; G47.33 Obstructive sleep apnea (adult) (pediatric); E83.119 Hemochromatosis, unspecified; Z87.891 Personal history of nicotine dependence
CPT/HCPCS: 36415; 71046; 80053; 83690; 84484; 85025; 85610; 85730; 93005; 96360; 96361; 99284; A9270; J7030

== ENCOUNTER 2022-10-12 12:01 | Outpatient (CLI) | payer OTHER, SELFPAY ==
--- NOTE | ~2022-10-12 | XR_ITS ---
EXAMINATION: XR chest 2V 10/12/2022 12:27 INDICATION: Chest pain. Hypertension. Mitral valve prolapse. PROCEDURE: 2 view chest COMPARISON: Comparison to multiple prior studies sequentially, with oldest reviewed study dated 02/17. FINDINGS: The lungs are clear. The cardiomediastinal silhouette is within normal limits. There are no pleural effusions. There is no pneumothorax suspected. IMPRESSION: 1: NO ACUTE CARDIOPULMONARY DISEASE. Reviewed, dictated and finalized at location B.
== END 2022-10-12 12:02 | disposition home or self-care (01) ==
PROVIDERS: Visit Provider Nurse Practitioner Adult Health
DX: R07.9 Chest pain, unspecified (principal); I34.1 Nonrheumatic mitral (valve) prolapse; I10 Essential (primary) hypertension
CPT/HCPCS: 71046

== ENCOUNTER 2022-11-14 15:08 | Emergency (ER) | payer OTHER, SELFPAY ==
[2022-11-14] VITALS (27 sets, daily range): BP systolic 81–112; BP diastolic 39–65; PULSE 67–95; RESP 8–23; TEMP 36.5; O2SAT 97–100
--- NOTE | ~2022-11-14 | XR_ITS ---
EXAMINATION: XR chest 2V DATE: 11/14/2022 16:49 INDICATION: Weakness TECHNIQUE: AP and lateral views of the chest are obtained. COMPARISON: 10/12/2022 FINDINGS: The lungs are free of acute opacities. No pleural effusion or pneumothorax. The cardiomedia stinal silhouette is normal. There is mild thoracic spondylosis. Calcified right hilar lymph nodes ar e consistent with old granulomatous disease. There are surgical changes in the lower cervical spine. Surgical clips in the upper abdomen on the lateral view are likely from prior cholecystectomy. IMPRESSION: 1. No acute cardiopulmonary abnormality. Reviewed, dictated and finalized at location F.
--- NOTE | 2022-11-14 15:49 | PC.NURSE ---
patient arrived with c/o feeling fatigued, dizzy and foggy head since yesterday. patient had external lifevest placed the end of august d/t CHF and EF of 13%. patient currently denies being shocked by lifevest since placed. reports that her BP had been going up and down since yesterday
--- NOTE | 2022-11-14 16:07 | ECG_ITS ---
Measurements Intervals [place] Rate: 74 P: 44 CO: 169 QRS: -25 QRSD: 160 T: 56 QT: 430 QTc: 478 Interpretive Statements SINUS RHYTHM LEFT BUNDLE BRANCH BLOCK [120+ ms QRS DURATION, 80+ ms Q/S IN V1/V2, 85+ ms R IN I/aVL/V5/V6] COMPARED TO ECG 10/05/2022 20:06:26 NO SIGNIFICANT CHANGES Electronically Signed On 11-15-2022 8:33:33 CDT by Marifer Cornelius M.D.
--- NOTE | 2022-11-14 16:42 | ED.GENADULT ---
HPI - General Adult General Chief complaint: Recheck/Abnormal Lab/Rx Stated complaint: blood pressure issues Time Seen by Provider: 11/14/22 16:02 History of Present Illness HPI narrative: Patient is a 62-year-old female who presents ER due to variable blood pressure. Reports her blood pressures gotten as high as 135 mmHg. Patient has been told by her tractor trailer moving van driver Dr. Cornelius she should not let her blood pressure get above 95 mmHg systolic. She reports she will then drop rapidly. When her blood pressure goes up or goes down she feels flushed in the face. She feels lightheaded. She also feels a warm sensation in her chest no racing of the heart. No fevers or chills or sweats. No exertional chest pressure or provoking symptoms of the sensation. Related Data Home Medications Medication Instructions Recorded Confirmed albuterol sulfate 90 mcg/actuation 1 inh inhalation Q4-6H PRN 06/16/21 09/02/22 breath activated powder inhaler Bronchospasm budesonide 0.5 mg/2 mL suspension 0.5 mg inhalation DAILY 09/02/22 09/02/22 for nebulization fluticasone furoate 100 1 inh inhalation DAILY 09/02/22 09/02/22 mcg/actuation blister powder for inhalation (Arnuity Ellipta) omeprazole 40 mg capsule,delayed 40 mg PO DAILY 09/02/22 09/02/22 release tiotropium bromide 18 mcg capsule 1 cap inhalation DAILY 09/02/22 09/02/22 with inhalation device (Spiriva with HandiHaler) Allergies Allergy/AdvReac Type Severity Reaction Status Date / Time No Known Drug Allergies Allergy Unknown Unknown Verified 11/14/22 17:15 Review of Systems Review of Systems: All systems reviewed & are unremarkable except as noted in HPI and below Constitutional: Constitutional: Denies chills, Reports fatigue and Denies fever(s) ENT: Denies nasal congestion and Denies sore throat Cardiovascular: Cardiovascular: Denies chest pain, Denies rapid heart rate and Denies radiating jaw, neck or arm pain Comments: Warmness in the chest Respiratory: Respiratory: Denies cough and Denies dyspnea Gastrointestinal: Gastrointestinal: Denies abdominal pain, Denies diarrhea, Denies nausea and Denies vomiting Neurologic: Denies headache(s), Denies focal weakness and Denies numbness Comments: Lightheadedness PMFSH Past Medical History Medical History Anxiety COPD (chronic obstructive pulmonary disease) GERD (gastroesophageal reflux disease) Heart failure Hemochromatosis Hypertension Mitral valve prolapse JASPAL (obstructive sleep apnea) PONV (postoperative nausea and vomiting) Surgical History Surgical History H/O neck surgery H/O shoulder surgery Hx laparoscopic cholecystectomy 06/27/21 S/P bilateral breast reduction S/P carpal tunnel release Family History Family History (Updated 11/13/22 @ 10:53 by Leanne Nobles RN) Father Aneurysm Heart disease Atrial fibrillation Patient's father is , Onset Age: 80 Family history of chronic obstructive pulmonary disease Cerebrovascular accident Pulmonary disease Mother , age 75 Pancreatic cancer Sibling Family history of malignant neoplasm, Onset Age: 50 Hypertension Grandparent , age 65 Family history of lung cancer Family history of dementia Carcinoma of colon Social History Social History Smoking packs per day: 0.25 Smoking cigarettes per day: 5.0 Years smoked: 15 Smoking pack-years: 3.75 Smoking status: Former smoker Tobacco type: cigarettes Smoking end date: 06/07/16 Alcohol intake: never Alcohol use details: 1/MONTH Substance use: never Substance use type: does not use Lack of Transportation: No Lack of Food: Never True Current Housing: I Have Housing Concerned About Future Housing: No Difficulty Paying Gas/Electric Bill
[2022-11-14 17:20] LABS: Basophils Percent Auto 0.4 % (0.2-1.2); Eosinophils Absolute Auto 0.1 K/mm3 (0-0.3); Eosinophils Percent Auto 2.4 % (0-4.4); Hematocrit 36.3 % (37.0-47.0); Hemoglobin 11.8 g/dL (12.0-15.0); Immature Granulocyte Absolute 0.01 K/mm3 (0.00-0.031); Immature Granulocyte Percent A 0.2 % (0-0.5); Lymphocytes Absolute Auto 1.85 K/mm3 (0.9-3.2); Lymphocytes Percent Auto 34.2 % (18.3-44.2); Mean Corpuscular HGB Conc 32.5 g/dl (32-36); Mean Corpuscular Hemoglobin 29.1 pg (26-34); Mean Corpuscular Volume 89.6 fl (80-100); Mean Platelet Volume 9.6 fl (7.4-10.4); Monocytes Absolute Auto 0.6 K/mm3 (0.1-0.6); Monocytes Percent Auto 10.4 % (2.6-8.5); Neutrophils Absolute Auto 2.8 K/mm3 (1.3-6.7); Neutrophils Percent Auto 52.4 % (45.5-73.1); Platelet Count Result 205 k/mm3 (150-375); Red Blood Count 4.05 M/mm3 (4.2-5.4); Red Cell Distribution Width 14.5 % (11.5-14.5); White Blood Count 5.4 K/mm3 (4.5-10.0)
[2022-11-14 17:32] LABS: Partial Thromboplastin Time 32.2 SECONDS (22.3-36.8); Prothrombin Time 13.6 Seconds (11.1-14.7)
[2022-11-14 17:34] LABS: Alanine Aminotransferase 21 U/L (6-35); Albumin Level 3.9 g/dL (3.5-5.1); Alkaline Phosphatase 70 U/L (38-126); Anion Gap 4 mmol/L (8-16); Aspartate Amino Transferase 26 U/L (14-36); Bilirubin,Total 0.4 mg/dL (0.2-1.3); Blood Urea Nitrogen 19 mg/dL (7-17); Calcium 8.5 mg/dL (8.4-10.2); Carbon Dioxide 29 mmol/L (22-30); Chloride 105 mmol/L (98-107); Estimated CRCL calculation 36 ml/min; Estimated Glomerular Filt Rate 45; Glucose 101 mg/dL (65-110); Lipase 135 U/L (23-300); Potassium 4.2 mmol/L (3.4-5.0); Sodium 138 mmol/L (137-145)
[2022-11-14 17:45] LABS: Troponin I < 0.012 ng/mL (0.000-0.034)
[2022-11-14] MEDS: SODIUM CHLORIDE 0.9% IV 500 ML 999 ML IV CONT (18:29)
== END 2022-11-14 19:26 | disposition home or self-care (01) ==
PROVIDERS: Emergency Provider Emergency Medicine; PCP Hospitalist
DX: E86.0 Dehydration (principal); I10 Essential (primary) hypertension; J44.9 Chronic obstructive pulmonary disease, unspecified; I34.1 Nonrheumatic mitral (valve) prolapse; G47.33 Obstructive sleep apnea (adult) (pediatric); K21.9 Gastro-esophageal reflux disease without esophagitis; F41.9 Anxiety disorder, unspecified; Z87.891 Personal history of nicotine dependence; Z79.51 Long term (current) use of inhaled steroids
CPT/HCPCS: 36415; 71046; 80053; 83690; 84484; 85025; 85610; 85730; 93005; 99284; J7040

== ENCOUNTER 2023-03-11 15:00 | Outpatient (RCR) | payer OTHER, SELFPAY ==
[2022-11-13 11:49] VITALS: PULSE 74
== END 2023-03-11 23:59 | disposition home or self-care (01) ==
LOC: ANHCPREHAB 15:00
PROVIDERS: PCP Hospitalist; Visit Provider Internal Medicine Cardiovascular Disease
DX: I50.89 Other heart failure (principal)
CPT/HCPCS: 93798

== ENCOUNTER 2023-04-01 15:00 | Outpatient (RCR) | payer SELFPAY ==
[2023-03-14 00:02] VITALS: PULSE 74
== END 2023-04-01 15:43 | disposition home or self-care (01) ==
LOC: ANHCPREHAB 15:00
PROVIDERS: PCP Hospitalist; Visit Provider Internal Medicine Cardiovascular Disease
DX: I50.89 Other heart failure (principal)
CPT/HCPCS: 93798

== ENCOUNTER 2023-04-15 12:21 | Outpatient (CLI) | payer MEDICARE, SELFPAY ==
--- NOTE | ~2023-04-15 | MM_ITS ---
EXAMINATION: MM diagnostic nettie BI w skylar HISTORY: Breast nodules seen on prior nuclear SPECT examination. TECHNIQUE: Additional 3-D tomosynthesis images of the breasts were performed and synthetic 2-D images were generated. CAD analysis was submitted and interpreted. COMPARISON: Comparison to multiple prior studies sequentially, with oldest reviewed study dated 02/18. BREAST PARENCHYMAL COMPOSITION: Breast composed of scattered areas of fibroglandular density FINDINGS: The breasts are stable. No new masses, calcifications or architectural distortion in either breast to suggest malignancy. There are benign calcified nodules in both breasts. IMPRESSION: 1. No mammographic evidence for malignancy in either breast. 2. Routine yearly screening mammogram and regular clinical breast examination are recommended. BI-RADS Category 2: Benign finding(s). Reviewed, dictated and finalized at location A. ET [employer]ATE [employer]ER IMPRESSION: 1. No mammographic evidence for malignancy in either breast. 2. Routine yearly screening mammogram and regular clinical breast examination a re recommended. BI-RADS Category 2: Benign finding(s).
== END 2023-04-15 12:22 | disposition home or self-care (01) ==
PROVIDERS: PCP Hospitalist; Visit Provider Obstetrics & Gynecology
DX: R92.8 Other abnormal and inconclusive findings on diagnostic imaging of breast (principal)
CPT/HCPCS: 77062; 77066; G0279

== ENCOUNTER 2023-10-06 10:44 | Outpatient (CLI) | payer MEDICARE, SELFPAY ==
--- NOTE | ~2023-10-06 | CT_ITS ---
EXAMINATION: CT soft tissue neck w con DATE: 10/06/2023 11:20 INDICATION: Localized swelling, mass and lump, neck. TECHNIQUE: Computed tomography (CT) of the neck was performed with 75 mL Omnipaque-350 intravenous co ntrast. Automated exposure control and iterative reconstruction technique were employed. The dose-robert gth product was 407.21 mGy-cm. COMPARISON: None FINDINGS: There is mild scarring at the lung apices. The orbits are normal. There is mucosal thickeni ng in the paranasal sinuses. There are no pathologically enlarged lymph nodes. The mastoid air cells are normal. There are changes of anterior fusion procedure at C5-C6. There is a disc replacement at C 6-C7. There is moderate cervical spondylosis. IMPRESSION: 1. No abnormal neck mass or lymphadenopathy. Reviewed, dictated and finalized at location A.
[2023-10-06 11:02] LABS: Estimated Glomerular Filt Rate 56
== END 2023-10-06 10:45 ==
PROVIDERS: PCP Hospitalist
DX: R22.1 Localized swelling, mass and lump, neck (principal)
CPT/HCPCS: 70491; Q9967

== ENCOUNTER 2024-12-21 16:23 | Outpatient (CLI) | payer MEDICARE, SELFPAY ==
--- NOTE | ~2024-12-21 | US_ITS ---
EXAMINATION: US renal BI DATE: 12/21/2024 16:55 INDICATION: Chronic kidney disease stage 3A TECHNIQUE: Multiple grayscale and Doppler ultrasound images of the kidneys were obtained. COMPARISON: None. FINDINGS: The right kidney measures 8.9 x 4.2 x 4.7 cm. The left kidney measures 10.0 x 4.6 x 4.7 cm. The kidne ys demonstrate normal parenchymal echogenicity. There is no hydronephrosis. The bladder is normal. IMPRESSION: Unremarkable renal sonogram findings. Reviewed, dictated and finalized at location K.
--- OUTSIDE RECORDS SUMMARY | 2024-12-21 16:27 | XMS_ITS | Clinical Summary ---
Author Organization [facility] Address [address] [place] [address] Care Team Providers Care Reservations Specialist Name Role Phone Marbella Neumann TEREZA-CHADWICK Primary Care Provider [phone] Source Comments [facility],non-owned Affiliates and Associated Physician Practices is amultiple site organization consisting of ambulatory clinics and hospital sitesin [place], [place], [place] and [place]. This disclosure is being madepursuant to the Care Everywhere program and may not contain all information available regarding this patient. Last updated 18.[facility] Allergies No known active allergies Medications * Be aware that medications may not be up to date on this document. Alwaysverify current medications with the patient. Cholecalciferol (VITAMIN D3) 72194 UNITS capsule Take 50,000 Units by mouth every 7 days Active B Complex Vitamins (VITAMIN-B COMPLEX PO) Active MAGNESIUM CITRATE PO Active Probiotic Product (PROBIOTIC ADVANCED PO) Active Calcium Acetate, Phos Binder, (CALCIUM ACETATE PO) Active FLUoxetine HCl (PROZAC PO) Active busPIRone HCl (BUSPAR PO) Active CBD oil Active predniSONE (DELTASONE) 20 MG tabletIndication s:Allergic contact dermatitis due to plants, except food Take 60 mg po x 5 days, then 40 mg po x 5 days, then 20 mg po x 5 days 30 tablet 12/21/2018 Active Active Problems No known active problems Social History Tobacco Use Types Packs/Day Years Used Date Smoking Tobacco: Every Day Smokeless Tobacco: Never Comments No Sex and Gender Information Value Date Recorded Sex Assigned at Not on file Legal Sex Female 2:55 PM CDT Gender Identity Not on file Sexual Orientation Not on file Last Filed Vital Signs Vital Sign Reading Time Taken Comments Blood Pressure 110/68 12/21/2018 11:20 AM CDT Pulse 102 12/21/2018 11:20 AM CDT Temperature 37.2 C (99 F) 12/21/2018 11:20 AM CDT Respiratory Rate 16 12/21/2018 11:20 AM CDT Oxygen Saturation 95% 12/21/2018 11:20 AM CDT Inhaled Oxygen Concentration - - Weight 74.8 kg (165 lb) 12/21/2018 11:20 AM CDT Height 160 cm (5' 3) 12/21/2018 11:20 AM CDT Body Mass Index 29.23 12/21/2018 11:20 AM CDT Plan of Treatment Health Maintenance Due Date Last Done Comments BONE DENSITY TESTING 1960 COLOGUARD (AGES 45-75) - COL ON CA SCREENING 1958 COLON MONITORING 1958 COLONOSCOPY - COLON CA SCREENING 1958 CT COLONOGRAPHY - COLON CA SCREENING 1960 Colorectal Cancer Screening 1958 FIT - COLON CA SCREENING 1958 FLEX SIG - COLON CA SCREENING 1958 LIPID TESTING 1958 MAMMOGRAM 1958 HEPATITIS C SCREENING 01/28/1976 DTAP/TDAP/TD VACCINES (1 - Tdap) 1977 PNEUMOCOCCAL VACCINE 50+ (1 of 2 - PCV) 1977 ZOSTER VACCINE (1 of 2) 02/02/2008 SCREENING FOR DIABETES 12/21/2018 COVID-19 VACCINE ( - 2023-2 5 season) 2024 DEPRESSION SCREENING 06/07/2024 INFLUENZA VACCINE (#1) 2025 Respiratory Syncytial Virus (RSV) Vaccine Pt: or over 60 yrs (1 - 1-dose 75+ series) 2033 HEPATITIS B VACCINE Aged Out No longe r eligible based on patient's age to complete this topic HIB VACCINE Aged Out No longer eligi ble based on patient's age to complete this topic HPV VACCINE Aged Out No longer eligi ble based on patient's age to complete this topic MENINGOCOCCAL (Group B) VACC INE SHARED DECISION-MAKING Aged Out No longer eligibl e based on patient's age to complete this topic MENINGOCOCCAL GROUPS A/C/Y/W VACCINE Aged Out No longer eligible b ased on patient's age to complete this topic Insurance [employer] Care Teams Reservations Specialist Relationship Specialty Start Date End Date Marbella Neumann APRN-CNP [id number] [id number] PCP - General 06/30/21
--- OUTSIDE RECORDS SUMMARY | 2024-12-21 16:27 | XMS_ITS | Clinical Summary ---
Author Organization [facility] Address [address] [place] [address] Phone Care Team Providers Care Inspector Material Disposition Name Role Phone Piter Coronel MD Primary Care Provider [phone] Marifer Cornelius MD Unavailable [phone] Royer Solis MD Unavailable [phone] Yolande Navarro NP Unavailable Allergies Active Allergy Reactions Criticality Noted Date Comments Digoxin Other (See comments) Low 03/16/2023 Visual problems, nausea Naltrexone-Bupropion Nausea only Low 09/14/2022 Medications fluticasone furoate (Arnuity Ellipta) 100 mcg/actuation inhaler Inhale 1 puff daily as needed (asthma) Active levalbuterol (XOPENEX HFA) 45 mcg/actuation inhaler Inhale 2 puffs every 6 (six) hours as needed for wheezing or shortness of breath 10/01/19 23 Active aspirin 81 mg chewable tablet Take 1 tablet (81 mg total) by mouth daily 30 tablet 1 10/13/19 24 Active polyethylene glycol (MIRALAX) 17 gram/dose bulk powderIndicatio ns:constipation Take 17 g by mouth daily 510 g 10/12/19 24 Active senna-docusate (PERICOLACE) 8.6-50 mg Take 2 tablets by mouth 2 (two) times a day 120 tablet 10/12/19 24 Active nitroglycerin (NITROSTAT) 0.[address] 1 tablet (0.4 mg total) under the tongue every 5 (five) minutes as needed for chest pain 15 tablet 10/12/19 24 Active furosemide (LASIX) 40 mg tabletIndicatio ns:HFrEF (heart failure with reduced ejection fraction) ([facility]) Take 0.5 tablets (20 mg total) by mouth daily 10/25/19 24 Active linaCLOtide (LINZESS) 72 mcg capsule Take 1 capsule (72 mcg total) by mouth space engineer before breakfast 90 capsule 3 12/16/19 24 Active lactulose solution 10 gram/15mL Take 15 mL (10 g total) by mouth 2 (two) times a day 960 mL 5 12/28/19 24 Active triamcinolone (KENALOG) 0.1 % cream Apply topically 12/02/19 24 Active MULTIVITAMIN ORAL Take by mouth daily 12/13/19 21 Active fluticasone propion-salmete roL (ADVAIR DISKUS) 100-50 mcg/dose diskus inhaler Inhale 1 puff 2 (two) times a day Rinse mouth with water after use. Do not swallow. 3 each 4 01/13/20 24 Active LORazepam (ATIVAN) 1 mg tablet Take 1 tablet (1 mg total) by mouth every 6 (six) hours as needed for anxiety 30 tablet 2 01/13/20 24 Active fluticasone propionate (FLONASE) 50 mcg/actuation nasal spray SPRAY 2 SPRAYS INTO EACH NOSTRIL EVERY DAY 48 mL 1 01/31/20 24 Active spironolactone (ALDACTONE) 25 mg tablet Take 1 tablet (25 mg total) by mouth daily 30 tablet 11 01/31/20 24 025 Active losartan (COZAAR) 25 mg tablet TAKE 1 TABLET BY MOUTH EVERY DAY 90 tablet 3 02/08/20 24 Active omeprazole (PriLOSEC) 40 mg capsule TAKE 1 CAPSULE BY MOUTH EVERY DAY 90 capsule 1 02/08/20 24 Active fluticasone furoate-vilante roL (Breo Ellipta) 100-25 mcg/dose diskus inhaler Inhale 1 puff daily Rinse mouth with water after use. Do not swallow. 30 each 11 03/07/20 24 025 Active Additional Information Patient taking differently:1 puff inhalation Daily, Rinse mouth with water after use. Do not swallow.Pt ran out 2 wks ago, Reported on 10/24/2024 azelastine (ASTELIN) 137 mcg (0.1 %) nasal spray Administer 1 spray into each nostril 2 (two) times a day Use in each nostril as directed 30 mL 11 03/07/20 24 025 Active cyanocobalamin (Vitamin B-12) 1,000 mcg tablet Take 1 tablet (1,000 mcg total) by mouth daily 06/23/19 25 Active fluticasone furoate-vilante roL (BREO ELLIPTA) 100-25 mcg/dose diskus inhalerIndicati ons:Moderate persistent asthma without complication Inhale 1 puff daily Rinse mouth with water after use. Do not swallow. 60 each 11 07/17/19 25 Active levalbuterol (XOPENEX HFA) 45 mcg/actuation inhalerIndicati ons:Moderate persistent asthma without complication Inhale 2 puffs 4 (four) times a day as needed for wheezing or shortness of breath 15 g 11 07/17/19 25 026 Active metoprolol XL (TOPROL-XL) 50 mg extended release tablet TAKE 1 TABLET BY MOUTH EVERY DAY 90 tablet 1 08/15/19 25 Active Jardiance 10 mg tablet TAKE 1 TABLET BY MOUTH EVERY DAY IN THE MORNING 90 tablet 1 11/02/19 25 Active citalopram (CeleXA) 40 mg tablet TAKE 1 TABLET BY MOUTH EVERY DAY 30 tablet 12/16/19 25 Active citalopram (CeleXA) 40 mg tablet Take 1 tablet (40 mg total) by mouth daily 90 tablet 4 09/21/19 24 025 Discontinued Active Problems Problem Noted Date Diagnosed Date Moderate persistent asthma without complication 07/17/2024 Assessment & Plan (07/17/2024 8:21 PM MANNEQUIN WIG MAKER): She has tried and failed multiple inhalers, including Symbicort, Wixela, Advair and Arnuity with either no clinical benefit or side effects of tachycardia. She had good clinical benefit from Breo Ellipta 100 and I recommend re-starting therapy at one puff daily. She will continue to use levalbuterol as needed only, we have discussed indications for use. Avoid triggers Absolute eosinophil count was 300 We have discussed signs and symptoms that would require earlier evaluation or change to her plan of care. History of heart failure 07/17/2024 Assessment & Plan (07/17/2024 8:26 PM MANNEQUIN WIG MAKER): Briefly on life vest, now with BiV pacemaker/defibrillator Continue to follow closely with cardiology Prinzmetal angina 10/14/2023 Assessment & Plan (10/14/2023 3:06 PM CDT): Stable, well controlled; patient has not been tolerated isosorbide mononitrate; has been having headaches associated with medication Encouraged patient continue medication for at least 1-2 weeks to evaluate if headaches resolve with regular use Patient reports no episodes of chest pain associated since hospitalization Workups negative for PE; previous cardiac workup was negative for stenosis of any coronary arteries Will continue monitor appropriate blood pressure control Acute chest pain 10/10/2023 Localized swelling, mass and lump, neck 09/08/19 24 Assessment & Plan (09/08/2023 11:09 AM CDT): CT Neck Continue Nasal saline spray (Simply saline, [employer], [place], [place]) 2 second sprays or 2 squeezes into each nostril while looking down over the sink, do not need to sniff in. Continue Amina at half strength or try Cetirizine (Zyrtec) TMJ dysfunction discussed and Handout provided Urge incontinence of urine 07/16/2023 Assessment & Plan (07/16/2023 4:41 PM MANNEQUIN WIG MAKER): Not well controlled, recently worsening; has no sensation than son incontinence Recommend continued work on pelvic floor therapy; if no improvement, would refer to urogynecology for evaluation Patient currently on multiple diuretics; which may exacerbate issues; will continue to monitor Chronic bilateral low back pain without sciatica 07/16/2023 Assessment & Plan (07/16/2023 4:41 PM MANNEQUIN WIG MAKER): Has chronic inflammation, uses Tylenol PM p.r.n. for pain Continue Tylenol as needed for pain relief Chest discomfort 03/16/2023 Idiopathic hypotension 01/14/2023 Biventricular ICD (implantab le cardioverter-defibrillator) in place 01/14/2023 Chronic combined systolic an d diastolic CHF (congestive heart failure) 12/28/2022 Assessment & Plan (01/19/2023 12:21 PM CDT): - diagnosed 08/2022 - EF 27% GI DD - appears euvolemic on exam - discussion regarding disease process, daily weights, sodium - patient will resume with cardiac rehab at [facility] on 01/25 - limited mobility before getting SOB; - medication reviewed and discussed - continue GDMT; if BP stays elevated and renal function is stable consider inc Entresto to full tablet - Sodium level stable; will hold NaHCO3 today pending BMP - BMP today Assessment & Plan (12/28/2022 7:40 PM CDT): History of hereditary hemochromatosis and NICM, diagnosed in August 2022 with wide LBBB. -cardiac MRI in October 2022 with dilated cardiomyopathy and LVEF 13% -currently appears well compensated. Hemodynamically stable and euvolemic on examination, -continue metoprolol XL 25 mg daily, 0.5 tab Entresto 24-26 mg BID, Jardiance 10 mg daily -continue home digoxin 0.125 mg, check level -strict I/Os, daily standing weights -monitor renal function and electrolytes, replete as needed -tele Cardiac resynchronization th erapy defibrillator (SLINGER SEQUINS-D) in place 12/28/2022 Assessment & Plan (12/28/2022 7:33 PM CDT): Admitted for post procedure observation after placement of SLINGER SEQUINS-D in EP lab earlier today. -bedrest overnight with sling -obtain 2 view CXR in the AM -IV cefazolin overnight -No heparin/heparin like products -Telemetry -device interrogation in AM Hypotension due to drugs 10/20/2022 LBBB (left bundle branch block) 10/20/2022 Hyperlipidemia 09/14/2022 Assessment & Plan (01/13/2024 4:48 PM CDT): Stable, well controlled; lipids in normal ranges Hypertension 09/14/2022 Assessment & Plan (10/14/2023 3:08 PM CDT): Stable, well controlled, blood pressure at goal Continue metoprolol 50 mg daily, spironolactone 25 mg daily Assessment & Plan (01/26/2023 1:11 PM CDT): Controlled, blood pressure at target; no episodes of orthostatics Continue Entresto 1/2 tablet b.i.d., furosemide 40 mg daily metoprolol 25 mg nightly, spironolactone 25 mg daily Assessment & Plan (09/14/2022 1:59 PM CDT): Stable, well controlled; patient has low normal blood pressure today; feeling of lightheadedness and generalized weakness; would recommend follow-up with Cardiology for optimization of medications Thyroid nodule 09/14/2022 Polyarthralgia 09/14/2022 Assessment & Plan (09/14/2022 1:53 PM CDT): Not well controlled; patient reports severe pain in multiple joints; unclear if related to underlying autoimmune disease verses home hemochromatosis 44% of people with hemochromatosis note arthralgias presentation Will check autoimmune diseases as well Continue to monitor; given ongoing cardiac concerns; would avoid NSAIDs or Cheek 2 inhibitors; encourage Tylenol 1000 mg t.i.d. for pain relief Cardiomyopathy, dilated 09/14/2022 Assessment & Plan (09/14/2022 1:58 PM CDT): Not well controlled, LVEF is 15-20%; grade 3 diastolic dysfunction Follows with Cardiology; on appropriate medical therapy HFrEF (heart failure with reduced ejection fract ion) 09/14/2022 Assessment & Plan (01/13/2024 4:48 PM CDT): Stable, well controlled; last echocardiogram demonstrated LVEF within normal limits Will hold furosemide except for swelling as patient reports having episodes dehydration hypotension Assessment & Plan (10/14/2023 3:08 PM CDT): Stable, well controlled, LVEF has recovered with medications; today no peripheral edema Continue Jardiance 10 mg daily, metoprolol 50 mg nightly, spironolactone 25 mg daily, ASA 81 mg daily Assessment & Plan (01/26/2023 1:14 PM CDT): Stable, improved; patient reports symptoms are improved; no longer having shortness of breath, though continues to have some fullness in stomach Continue spironolactone 25 mg daily, furosemide 40 mg daily; Jardiance 10 mg daily, metoprolol 25 mg nightly, Entresto 0.5 tablets b.i.d. Assessment & Plan (11/17/2022 2:20 PM CDT): Repeat ECHO performed today, demonstrated mild improvement in LVEF; remains dilated Patient has side effects from medication; including orthostatics and hypovolemia Continue Entrestto BID, Jardiance 10 mg; if feeling light headed, use fluid repletion; Metoprolol 25 mg nightly Assessment & Plan (09/14/2022 1:58 PM CDT): Dilated cardiomyopathy with grade 3 diastolic dysfunction; history of hemochromatosis; COVID-19 infection 1 year ago Follows with Cardiology; LifeVest in place today Continue Entresto 24-26 mg daily, Jardiance 10 mg daily, metoprolol 12.5 mg b.i.d., spironolactone 25 mg daily Patient to follow with Cardiology for repeat imaging for response to therapy Autonomic neuropathy 08/31/2022 Hemochromatosis, hereditary 08/31/2022 Assessment & Plan (01/13/2024 4:48 PM CDT): Stable, generally well controlled, last ferritin was within normal limits; will continue to monitor with Hematology Assessment & Plan (10/14/2023 3:05 PM CDT): Likely hereditary hemochromatosis; patient has multiple family members who have had heart disease in the past Will refer to Hematology Oncology for further evaluation and treatment options Patient to be evaluated for possible hereditary hemochromatosis treatment options Assessment & Plan (01/15/2023 1:56 PM CDT): -diagnosed 06/2022, follows with hematology outpt -cMRI did not suggest cardiac hemochromatosis Assessment & Plan (01/13/2023 4:22 PM CDT): -diagnosed 06/2022, follows with hematology outpt -cMRI did not suggest cardiac hemochromatosis Assessment & Plan (11/17/2022 2:21 PM CDT): Continues to have arthralgias, given negative Rheum work-up; likely 2/2 hemochromatosis; -follows with hematolgy for phlebotomy Assessment & Plan (09/14/2022 1:52 PM CDT): Not well controlled; patient has been following with [facility]; receiving regular therapeutic phlebotomies Patient reports diagnosis occurred in June 2022; all of her siblings are also diagnosed with hemochromatosis Patient has complications including heart failure; also complains of arthralgias; unclear secondary to hemochromatosis verses other underlying disease Refer to hematology for evaluation and treatment Sinus tachycardia 08/31/2022 Mixed anxiety and depressive disorder 08/28/2022 Assessment & Plan (01/26/2023 1:10 PM CDT): Having more anxiety recently; encourage vivid dreams, unclear if related to side effects from medications Continue citalopram 20 mg daily, Ativan 0.5 mg p.r.n. Assessment & Plan (09/14/2022 2:00 PM CDT): Patient reports anxiety is generally well controlled, however has elevated PHQ 9 score due to new onset health conditions Increase citalopram to 20 mg daily; continue Ativan 0.5 mg p.r.n. Insomnia 08/28/2022 Osteoporosis 08/28/2022 Supraventricular tachycardia 08/28/2022 Chronic obstructive pulmonary disease, unspecifi ed 08/28/2021 Assessment & Plan (01/13/2024 4:47 PM CDT): Controlled; continues to have symptoms and difficulty with breathing Can not tolerate albuterol due to shaking as a side effect Needs a chair while walking at large stores, can not walk long distances Will start Advair inhaler Assessment & Plan (10/14/2023 3:07 PM CDT): Stable, not well controlled; no major symptoms at this time; however reports has been having worsening breathing, needing wheelchair when shopping PFTs demonstrated restrictive disease; no evidence of obstructive disease Will continue monitor, Xopenex p.r.n.; however may have limited results due to restrictive nature of disease Will continue to monitor and follow up in further imaging based upon symptoms Assessment & Plan (01/26/2023 1:14 PM CDT): Well controlled; patient reports that her breathing has overall improved; doing well at this time Continue Spiriva 1 capsule daily Assessment & Plan (01/13/2023 4:22 PM CDT): -pt states she stopped taking her spiriva and arnuity ellipta bc her beef trimmer told her she doesn't really have copd -states she has had dyspnea since she had covid in 2020 -check PFTs -prn albuterol for wheezing Assessment & Plan (01/13/2023 4:05 PM CDT): -pt states she stopped taking her spiriva and arnuity ellipta bc her beef trimmer told her she doesn't really have copd -states she has had dyspnea since she had covid in 2020 -check PFTs -prn albuterol for wheezing Assessment & Plan (12/28/2022 7:34 PM CDT): -currently well compensated, no wheezing on exam. Symptoms perhaps more attributable to heart failure given FEV1 >80%. -will continue home inhalers for now Fatigue 08/28/2021 Assessment & Plan (11/17/2022 2:24 PM CDT): Patient has generalized weakness associated with HF and chornic illness Patient cannot walk long distances due to pain; weak, low energy, does not have strength to self propel manual wheelchair. Patient is a 62 y.o. female who presents today for a face to face evaluation for a power scooter. The patients patients mobility limitations are weakness, arthralgias, HFrEF, Class III. This affects their ability to perform MRADL's such as dressing, grooming and bathing in the home. The patients needs cannot be sufficiently me by using a cane or walker due to limited ability to stand for long durations, even with walker. The patients needs cannot be sufficiently met with a standard wheel chair due to upper body weakness limiting ability to self-propel. The patients needs can be sufficiently met with a scooter. The patient has the physical and mental capabilities to safely operate a powerscooter in the home. Upper extremities strength is 3/5 and 3/5. Lower extremities strength is 3/5 and 3/5. Multiple nodules of lung 08/28/2021 Assessment & Plan (07/17/2024 8:18 PM MANNEQUIN WIG MAKER): CT chest was completed, awaiting dictation She has had no further concerning symptoms. History of COVID-19 02/13/2021 History of substance abuse 02/13/2021 Acute exacerbation of chronic obstructive pulmon erica disease 04/17/2020 B12 deficiency 11/30/2016 Vitamin D insufficiency 11/30/2016 Anxiety 10/21/2016 Assessment & Plan (10/14/2023 3:08 PM CDT): Stable, generally well controlled; major issues at this time Continue citalopram 40 mg daily; patient reports some chest pain which may have been related to anxiety Patient may take lorazepam p.r.n. for chest pain or anxiety Assessment & Plan (01/15/2023 1:56 PM CDT): -reports significant anxiety prior to admission, states she has been taking a lot of xanax lately -c/o insomnia; lunesta started; she will follow up with PCP for prescription as outpatient Assessment & Plan (01/13/2023 4:22 PM CDT): -reports significant anxiety prior to admission, states she has been taking a lot of xanax lately -has not requested xanax while inpatient Assessment & Plan (01/13/2023 4:02 PM CDT): -reports significant anxiety prior to admission, states she has been taking a lot of xanax lately -has not requested xanax while inpatient Assessment & Plan (12/28/2022 7:31 PM CDT): -continue home citalopram and PRN Ativan Tendinitis of left rotator cuff 08/27/2016 Obstructive sleep apnea 03/17/2016 Assessment & Plan (07/17/2024 8:22 PM MANNEQUIN WIG MAKER): She has a previous referral to sleep medicine She is aware of the risks of uncorrected JASPAL Assessment & Plan (12/28/2022 7:35 PM CDT): -continue home CPAP Transient ischemic attack 03/17/2016 Irritable bowel syndrome 09/23/2015 Assessment & Plan (01/13/2024 4:46 PM CDT): Not well controlled; continues to have episodes of constipation, as well as explosive diarrhea, especially with use of Linzess Linzess not covered by insurance Will transition to lactulose; patient to adjust dose as needed for effect Assessment & Plan (10/14/2023 3:07 PM CDT): Not well controlled; continues to have irregular bowel movements, either loose stools or significant pushing Continue polyethylene glycol 17 g Assessment & Plan (07/16/2023 4:40 PM MANNEQUIN WIG MAKER): Continues to have stomach pain, frequent sudden diarrhea; symptoms worsening over the last 4-5 months, developed significant pain before bowels are evacuated; does have episodes of solid stools; solids stools always end of diarrhea Not due for colonoscopy for 2 years; colonoscopies have always been clear Will refer to GI for further evaluation of diarrhea evaluate if patient needs earlier colonoscopy or other treatment or evaluation Assessment & Plan (12/28/2022 7:32 PM CDT): -continue home PRN Linzess Assessment & Plan (09/14/2022 1:59 PM CDT): Patient continues to have significant constipation; no relief with [id number] treatments Previously on Linzess; had good response with Linzess Start Linzess 72 mcg daily; will adjust dose based upon response Gastroesophageal reflux disease 09/23/2015 Assessment & Plan (12/28/2022 7:32 PM CDT): -continue home PPI Resolved Problems Problem Noted Date Diagnosed Date Resolved Date Shortness of breath 08/31/2022 01/20/20 Overview (08/31/2022): Added automatically from request for surgery [id number] Chest pain on breathing 08/31/202201/05 Overview (09/16/2022): Added automatically from request for surgery [id number] Dizziness and giddiness 09/26/202103/07 Atherosclerosis of coronary artery 08/28/2021 09/21/2022 Dependence on supplemental oxygen 08/28/2021 01/19/2023 Palpitations 02/13/2021 03/16/2023 Nausea 09/24/2015 03/16/2023 Abnormal mammogram 11/19/2011 3 Encounters Date Type Department Care Team Description 11/27/2024 Telephone [facility] [address] [place] [address] Piter Coronel MD Medical Question/Miscellane ous 10/27/2024 Orders Only [facility] Cardiology [address] [place] [id number] Piter Martinez MD 10/24/2024 10:45 AM CDT Office Visit [facility] Cardiology [address] [place] [address] [place] [address] Servando Villafuerte MD Chronic systolic heart failure (HCC) 10/24/2024 9:22 AM CDT - 10/24/2024 11:59 PM CDT Hospital Encounter [facility] Cardiac Diagnostic Lab [address] [place] [address] Chronic systolic heart failure (HCC) Discharge Disposition: Discharge to home or self care 10/24/2024 Orders Only [facility] Transplant Heart [address] Mailstop [id number] [place] [address] Brielle Rayo RN HFrEF (heart failure with reduced ejection fraction) ([facility]) (Primary Dx) 09/26/2024 Telephone [facility] Pulmonary at [address] [place] [address] Dot Clifford LPN sick call from Last 3 Months Immunizations Immunization Administration Dates Next Due Influenza, Quadrivalent, Amy l Culture-based MDCK, Preservative Free, Antibiotic Free, Intramuscular 03/30/2023 Influenza, Quadrivalent, Split, Intramuscular Influenza, Quadrivalent, Spl it, Preservative Free, Intramuscular 04/07/2022,08/13/2021 Influenza, Trivalent, IM (MDV) 05/21/2014 Influenza, Unspecified 05/21/2014 Pneumococcal Conjugate Pcv20 01/13/2024 Pneumococcal Polysaccharide PPV23 04/27/2014 RSV Vaccine, Pref, Recombina nt, Subunit, Adjuvanted, PF, IM (Arexvy) 04/14/2023 TD Preservative Free 10/06/2013 Tdap 02/24/2016 Tetanus toxoid, adsorbed 10/06/2013 Surgical History Surgery Date Site/Laterality Comments CHOLECYSTECTOMY 06/07/2020 - 06/06/2021 N/A COSMETIC SURGERY 06/07/2002 - 06/06/2003 SECTION 06/07/2001 - 06/06/2002 SPINE SURGERY 06/07/2012 - 06/06/2013 prosthetic disc placed ACROMIOPLASTY 08/27/2016 Left left shoulder SHOULDER SURGERY 06/07/2016 - 06/06/2017 Right CARPAL TUNNEL RELEASE 06/07/2014 - 06/06/2015 Bilateral left side then riht side CARDIAC DEFIBRILLATOR PLACEMENT 12/28/2022 SLINGER SEQUINS-D Medical History Medical History Date Comments Hemochromatosis Heart disease CHF (congestive heart failure) (HCC) Hypotension Sleep difficulties COPD (chronic obstructive pulmonary disease) (HC C) GERD (gastroesophageal reflux disease) ? Anxiety ? Depression ? Sleep apnea 2016 PONV (postoperative nausea and vomiting) Dilated idiopathic cardiomyopathy (HCC) Hypertension MVP (mitral valve prolapse) Covid-19 2020 TIA (transient ischemic attack) Hemochromatosis Family History Medical History Relation Name Comments Lung cancer Brother Aneurysm Father Yon Reid Atrial fibrillation Father Yon Reid COPD Father Yon Reid Heart disease Father Yon Reid Stroke Father Yon Reid Early Father's Brother Eddie Reid Heart attack Father's Brother Eddie Reid Heart disease Father's Brother Eddie Reid Early Father's Sister Rylee Humphries Heart attack Father's Sister Rylee Humphries Heart disease Father's Sister Rylee Humphries Cancer Mother Thyroid disease Mother Adrenal disorder Sister 1 Diabetes Sister 1 Hemochromatosis Sister 1 Pancreatitis Sister 1 Hemochromatosis Sister 2 Hemochromatosis Sister 3 Hemochromatosis Sister 4 Relation Name Status Comments Brother Father Yon Reid Father's Brother Eddie Reid Father's Sister Rylee Humphries Mother Sister 1 Alive Sister 2 Alive Sister 3 Alive Sister 4 Alive Social History Tobacco Use Types Packs/Day Years Used Date Smoking Tobacco: Former Cigarettes 0.3 15 1 988 - 2002 Smokeless Tobacco: Former Tobacco Cessation:Counseling Given: Not Answered [facility] Utilities Answer Date Recorded In the past 12 months has [employer], gas, oil, or water [employer] threatened to shut off services in your home? No 10/11/2023 Social Connection and Isolat ion Panel [NHANES] Answer Date Recorded In a typical week, how many times do you talk on the phone with family, friends, or neighbors? More than three times a week 10/11/2023 How often do you get togethe r with friends or relatives? Three times a week 10/11/2023 How often do you attend [facility] or holiness services? Never 10/11/2023 Do you belong to any clubs o r organizations such as hoahaoism groups, unions, fraternal or athletic groups, or school groups? No 10/11/2023 How often do you attend meet ings of the clubs or organizations you belong to? Never 10/11/2023 Are you , , di vorced, , never , or living with a partner? 10/11/2023 AUDIT-C Answer Date Recorded Q1: How often do you have a drink containing alcohol? Never 03/08/2023 Q2: How many drinks containi ng alcohol do you have on a typical day when you are drinking? Patient does not drink 10/02/202 3 Q3: How often do you have si x or more drinks on one occasion? Never 03/08/2023 Overall Financial Resource Strain (CARDIA) Answe r Date Recorded How hard is it for you to pa y for the very basics like food, housing, medical care, and heating? Not hard at all 10/11/2023 PHQ-2 Answer Date Recorded PHQ-2 Total Score (If total score is 3 or more points, staff should administer the PHQ-9) 0 06/30/2023 Hunger Vital Sign Answer Date Recorded Within the past 12 months, y ou worried that your food would run out before you got the money to buy more. Never true 10/11/19 24 Within the past 12 months, t he food you bought just didn't last and you didn't have money to get more. Never true 10/11/2023 PRAPARE - Transportation Answer Date Re corded In the past 12 months, has l ack of transportation kept you from medical appointments or from getting medications? No 11/2023 In the past 12 months, has l ack of transportation kept you from meetings, work, or from getting things needed for daily living? No 10/11/2023 Housing Stability Vital Sign Answer Amol e Recorded In the last 12 months, was t here a time when you were not able to pay the mortgage or rent on time? No 10/11/2023 In the last 12 months, how many places have you lived? 1 10/11/2023 In the last 12 months, was t here a time when you did not have a steady place to sleep or slept in a half-way (including now)? No 10/11/2023 Personal Safety Answer Date Recorded Have you ever been in or are you currently in a harmful physical or emotional relationship or is someone making you feel afraid or unsafe? Denies 10/10/2023 Education Answer Date Recorded What is the highest level of school you have completed or the highest degree you have received? Associate degree: academic program 10/11/2023 Comments Unknown Sex and Gender Information Value Date Recorded Sex Assigned at Not on file Legal Sex Female 12:41 AM [employer] Gender Identity Not on file Sexual Orientation Not on file Obstetrics History Last Filed Vital Signs Vital Sign Reading Time Taken Comments Blood Pressure 107/72 10/24/2024 10:37 AM CDT Pulse 73 10/24/2024 10:37 AM CDT Temperature 36.4 C (97.6 F) 07/17/2024 11:44 AM [employer] Respiratory Rate 16 07/17/2024 11:44 AM [employer] Oxygen Saturation 99% 10/24/2024 10:37 AM CDT Inhaled Oxygen Concentration - - Weight 64.4 kg (142 lb) 10/24/2024 10:37 AM CDT Height 160 cm (5' 3) 07/17/2024 11:44 AM [employer] Body Mass Index 25.15 07/17/2024 11:44 AM [employer] Plan of Treatment Health Maintenance Due Date Last Done Comments Colon Cancer Screening-Colonoscopy 1960 Hepatitis C Screening 1960 Osteoporosis Screening-Bone Density Scan 1960 Hepatitis B Screening 02/02/1976 Zoster Vaccine (1 of 2) 02/02/2008 Well Visit 65+ 2023 Covid-19 Vaccine (4 - 2023-2 5 season) 2024 05/19/2021, 09/16/2020, 08/18/2020 Breast Cancer Screening-Mammogram 04/15/2024 023 Depression Screening 06/30/2024 06/30/2023, 01/26/2023, 11/16/2022, Additional history exists Fall Risk Assessment 10/13/2024 10/14/2023, 10/12/2023, 06/30/2023, Additional history exists Influenza Vaccine (#1) 2025 , 04/07/2022, 08/13/2021, Additional history exists DTaP/Tdap/Td Vaccine (2 - Td or Tdap) 02/23/2026 02/24/2016, 10/06/2013, 10/06/2013 Pneumococcal vaccine 65+ Completed 01/13/2024, 04/08 Medical Devices Implanted Type Area Designer/Writer Device Identifier Shelf Expiration Date Model / Serial / Lot [employer] Defib Cardiac [id number] Meta Hf Df4 Is-4 Is-1 Cnctr [id number] - [id number] - [id number] Implanted:Qty: 1 on 12/28/2022 by Piter Martinez MD at [facility] ICD [employer] 10/04/2024 [id number] / [id number] / [employer] Tendril Sts 6fr 52cm Is-1 Connector Active Fixation Bipolar Soft 2087tc/52 - [id number] - [id number] Implanted:Qty: 1 on 12/28/2022 by Piter Martinez MD at [facility] Lead [employer] 11/04/20252087TC/52 / [id number] / [employer] Durata 6.8fr 58cm 1 Coil True Bipolar Active Fixation Extendable 7122q/58 - [id number] - [id number] Implanted:Qty: 1 on 12/28/2022 by Piter Martinez MD at [facility] Lead [employer] 11/04/2025 7122Q/58 / [id number] / [employer] Quartet 5fr [id number] Electrode Is-4 Connector Steerable Tip 1458q/86 - [id number] - [id number] Implanted:Qty: 1 on 12/28/2022 by Piter Martinez MD at [facility] Lead [employer] 09/04/2025 1458Q/86 / [id number] / Other - See Comments Implanted:Qty: 1 Other - see comments N/A: Spine Lumbar Description:Spinal prostheti c disc Procedures Procedure Name Priority Date/Time Associated Diagnosis Comments DEVICE CHECK - REMOTE Routine 10/27/2024 11:07 PM CDT TRANSTHORACIC ECHO (TTE) COMPLETE W DOPPLER/CF W CONTRAST Routine 10/24/2024 10:23 AM CDT Chronic systolic heart failure (HCC) HM MAMMOGRAPHY Routine 04/15/2023 from Last 3 Months or Most Recently Relevant to Health Maintenance Results * DEVICE CHECK - REMOTE (10/27/2024 11:07 PM CDT) Anatomical Region Laterality Modality Other 10/27/2024 11:0 7 PM CDT Narrative 11/01/2024 6:30 PM CDT Interpretation Summary: Battery and Leads (BL) Normal parameters noted on battery and lead(s) --- 6.1 years remaining (this is an estimate based on prior usage) Presenting Rhythm (MI) Atrial Sensing-BiVentricular Pacing (-BiVP) --- rate 82 Arrhythmic events (AE) No new arrhythmic events in monitoring period Transmission Information (TI) Device Summary Report Procedure Note Piter Martinez MD - 11/01/2024 Interpretation Summary: Battery and Leads (BL) Normal parameters noted on battery and lead(s) --- 6.1 years remaining(this is an estimate based on prior usage) Presenting Rhythm (MI) Atrial Sensing-BiVentricular Pacing (-BiVP) --- rate 82 Arrhythmic events (AE) No new arrhythmic events in monitoring period Transmission Information (TI) Device Summary Report us Piter Martinez MD CV CARDIAC SERVICES PRO CEDURES Final Result * TRANSTHORACIC ECHO (TTE) COMPLETE W DOPPLER/CF W CONTRAST (10/24/2024 10:23 AM CDT) EF Mod BP 60 % CONS SCIMAGE Anatomical Region Laterality Modality Ultrasound 10/24/2024 9:32 AM CDT Narrative 10/24/2024 2:27 PM CDT [facility] [place] [address] Transthoracic Echocardiographic Report Patient Name: OLGA DANG G : 1960 (64y 8m) Gender: F Study Date: 10/24/2024 09:32:32 Ht(Inch): 63 Wt(Lb): 145.94 BSA: 1.72 Cable Repairer: Maranda Diaz RDCS Location: [facility] Order Provider: VERONICA STEVENS Heart Rate: 81 BMI: 25.85 BP: 100 / 61 Ref Provider: VERONICA STEVENS PROCEDURES: Echocardiographic Report: Transthoracic complete echo with strain imaging and contrast, 2D, spectral and tissue Doppler, color flow Doppler, M-mode. Contrast: Contrast Enhancement was Employed: After initial imaging due to sub- optimal quality related to co-morbidity defined by patient's body habitus and due to suboptimal image quality with inadequate visualization of at least 2 of 16 LV wall segments in any view after initial imaging. Perflutren contrast was administered using the volume necessary to obtain adequate images. 0.4 ml Optison Administered, (2.6 ml wasted). INDICATIONS: I50.22 Chronic systolic (congestive) heart failure. CONCLUSIONS: 1. Normal left ventricular size based on volume index. Normal LV wall thickness. Normal left ventricular systolic function. The Ejection Fraction (Montgomery's) is measured at 60 %. Grade I diastolic dysfunction (normal LA pressure). The average global longitudinal strain is borderline. The LV global strain is: -16.8 %. No left ventricular thrombus visualized. 2. Normal right ventricular size. Normal right ventricular systolic function. Mildly abnormal RV strain. Wire noted in the right heart. 3. Moderate mitral regurgitation with an eccentric jet. 4. Trace pulmonic regurgitation. 5. No pericardial effusion. 6. Normal aortic root and ascending aorta size when indexed to body surface area. 7. Normal estimated mean PA pressure. ATTESTATION: I have personally reviewed and interpreted this study without fellow or resident. - DISCLAIMER: The study images and the final report will be retained in the patient chart by the Echo Laboratory for the legally required time period. This chart constitutes the legal record of any testing performed. FINDINGS: Left Ventricle: Normal left ventricular size based on volume index. Normal LV wall thickness. Normal left ventricular systolic function. The Ejection Fraction (Montgomery's) is measured at 60 %. Grade I diastolic dysfunction (normal LA pressure). The average global longitudinal strain is borderline. The LV global strain is: -16.8 %. No left ventricular thrombus visualized. Right Ventricle: Normal right ventricular size. Normal right ventricular systolic function. Wire noted in the right heart. The average right ventricular strain is mildly abnormal at -16.8% (normal is more negative than -17%.). Left Atrium: The left atrium is normal in size. Right Atrium: The right atrium is normal in size. Mitral Valve: Normal mitral valve structure. Moderate mitral valve regurgitation. No stenosis present. The mean transmitral gradient is: 0 mmHg. Aortic Valve: Normal trileaflet aortic valve. No aortic regurgitation. No aortic valve stenosis. The mean transaortic gradient is 3 mmHg. The aortic valve area by the continuity equation (using VTI) is 2.34 cm2. Aortic valve dimensionless index is 0.82. Tricuspid Valve: Normal tricuspid valve structure. No tricuspid regurgitation. No tricuspid valve stenosis. Pulmonic Valve: Normal pulmonic valve structure. Trace pulmonic regurgitation. No pulmonic valve stenosis present. Pericardium: Normal pericardium without pericardial effusion. Aorta: Normal aortic root size at sinuses of Valsalva. Normal aortic root size when indexed. The ascending aorta is normal in size when indexed. PASP: Unable to determine PASP due to inadequate TR jet, but the mean PA pressure appears normal based on the PV acceleration time. Rhythm: Normal Sinus rhythm was seen during the study. MEASUREMENTS: 2D/MM Value Range Doppler Value Range LVIDd 2D 4.49 cm [ 3.80 - 5.20 ] AV Peak Jamey 1.1 m/s [ 1.0 - 1.7 ] LVIDs 2D 3.51 cm [ 2.20 - 3.50 ] AV Peak PG 4.84 mmHg IVSd 2D 0.88 cm [ 0.60 - 0.90 ] AV Mean PG 3 mmHg LVPWd 2D 0.78 cm [ 0.60 - 0.90 ] AV VTI 20.5 cm LV Thickness Ratio 1.1 LVOT Peak Jamey 0.9 m/s [ 0.7 - 1.1 ] LV FS 2D 21.79 % [ 27.00 - 45.00 ] LVOT Peak PG 3.24 mmHg LV Mass 2D 121.72 g LVOT Mean PG 2 mmHg LV Mass Index 2D 70.77 g/m2 LVOT VTI 16.9 cm RWT 0.35 LVOT Diam 1.90 cm EDV Mod BP 99.89 ml [ 46.00 - 106.00 ] JANIS VTI 2.34 cm2 LV EDV Index 58.08 ml/m2 LVOT/AV VTI 0.82 - Dimensionless index (DVI) ESV Mod BP 40.26 ml [ 14.00 - 42.00 ] MV E Peak Jamey 0.5 m/s [ 0.6 - 1.3 ] EF Mod BP 60 % [ 54 - 74 ] MV A Peak Jamey 0.6 m/s [ 1.0 - 1.2 ] LV GLS -16.8 % [ -25.0 - -18.0 ] MV E/A 0.9 ratio [ 0.8 - 1.5 ] LA Length 4C 5.13 cm MV Peak Jamey 0.5 m/s LA Length 2C 4.28 cm MV Peak PG 1.00 mmHg LA Volume BP 25.14 ml MV Mean PG 0 mmHg LA Volume Index 14.62 ml/m2 [ 16.00 - 34.00 ] MV VTI 10.6 cm MV Annulus 2D 2.45 cm MV Decel Time 193.79 msec [ 104.00 - 258.00 ] RV Base Dimen 2D 2.4 cm [ 2.5 - 4.2 ] Med E` Jamey 7.2 cm/sec [ 8.0 - 25.0 ] TAPSE 1.64 cm [ 1.71 - 5.00 ] Lat E` Jamey 7.8 cm/sec [ 10.0 - 25.0 ] RA Volume 16.80 ml Average E/E` 6.67 RA Volume Index 9.77 ml/m2 MR Peak Jamey 5.1 m/s AoR Diam 2D 2.91 cm [ 2.70 - 3.70 ] MR Peak PG 104.04 mmHg Ao Root Index 1.69 cm/m2 [ 1.00 - 2.00 ] MV Alias Jamey 0 m/s Asc Ao Diam 2D 2.51 cm MR VTI 177.6 cm Asc Ao Index 1.46 cm/m2 MR Flow 0.00 ml/sec MR PISA 0.4 MR EROA 0.1 cm2 PISA Regurgitant Volume 17.8 ml RV S` 9.06 cm/sec PV Peak Jamey 0.6 m/s [ 0.4 - 0.8 ] PV Peak PG 1.44 mmHg Electronically Signed By: Boaz Oliver MD 10/24/2024 14:26:21 CDT Procedure Note Boaz Oliver MD - 10/24/2024 [facility] [place] [address] Transthoracic Echocardiographic Report Patient Name: OLGA DANG G : 1960 (64y 8m) Gender: F Study Date: 10/24/2024 09:32:32 Ht(Inch): 63 Wt(Lb): 145.94 BSA: 1.72 Cable Repairer: Maranda Diaz RDCS Location: [facility] Order Provider:VERONICA STEVENS Heart Rate: 81 BMI: 25.85 BP: 100 / 61 Ref Provider: VERONICA STEVENS PROCEDURES: Echocardiographic Report: Transthoracic complete echo with strain imagingand contrast, 2D, spectral and tissue Doppler, color flow Doppler, M-mode. Contrast: Contrast Enhancement was Employed: After initial imaging due tosub- optimal quality related to co-morbidity defined by patient's body habitus and dueto suboptimal image quality with inadequate visualization of at least 2 of 16 LV wallsegments in any view after initial imaging. Perflutren contrast was administered using thevolume necessary to obtain adequate images. 0.4 ml Optison Administered, (2.6 mlwasted). INDICATIONS: I50.22 Chronic systolic (congestive) heart failure. CONCLUSIONS: 1. Normal left ventricular size based on volume index. Normal LV wallthickness. Normal left ventricular systolic function. The Ejection Fraction (Montgomery's) ismeasured at 60 %. Grade I diastolic dysfunction (normal LA pressure). The average globallongitudinal strain is borderline. The LV global strain is: -16.8 %. No leftventricular thrombus visualized. 2. Normal right ventricular size. Normal right ventricular systolicfunction. Mildly abnormal RV strain. Wire noted in the right heart. 3. Moderate mitral regurgitation with an eccentric jet. 4. Trace pulmonic regurgitation. 5. No pericardial effusion. 6. Normal aortic root and ascending aorta size when indexed to bodysurface area. 7. Normal estimated mean PA pressure. ATTESTATION: I have personally reviewed and interpreted this study without fellow orresident. - DISCLAIMER: The study images and the final report will be retained in the patientchart by the Echo Laboratory for the legally required time period. This chart constitutesthe legal record of any testing performed. FINDINGS: Left Ventricle: Normal left ventricular size based on volume index. NormalLV wall thickness. Normal left ventricular systolic function. The EjectionFraction (Montgomery's) is measured at 60 %. Grade I diastolic dysfunction (normal LA pressure).The average global longitudinal strain is borderline. The LV global strain is: -16.8%. No left ventricular thrombus visualized. Right Ventricle: Normal right ventricular size. Normal right ventricularsystolic function. Wire noted in the right heart. The average right ventricularstrain is mildly abnormal at -16.8% (normal is more negative than -17%.). Left Atrium: The left atrium is normal in size. Right Atrium: The right atrium is normal in size. Mitral Valve: Normal mitral valve structure. Moderate mitral valveregurgitation. No stenosis present. The mean transmitral gradient is: 0 mmHg. Aortic Valve: Normal trileaflet aortic valve. No aortic regurgitation. Noaortic valve stenosis. The mean transaortic gradient is 3 mmHg. The aortic valve areaby the continuity equation (using VTI) is 2.34 cm2. Aortic valve dimensionlessindex is 0.82. Tricuspid Valve: Normal tricuspid valve structure. No tricuspidregurgitation. No tricuspid valve stenosis. Pulmonic Valve: Normal pulmonic valve structure. Trace pulmonicregurgitation. No pulmonic valve stenosis present. Pericardium: Normal pericardium without pericardial effusion. Aorta: Normal aortic root size at sinuses of Valsalva. Normal aortic rootsize when indexed. The ascending aorta is normal in size when indexed. PASP: Unable to determine PASP due to inadequate TR jet, but the mean PApressure appears normal based on the PV acceleration time. Rhythm: Normal Sinus rhythm was seen during the study. MEASUREMENTS: 2D/MM Value Range DopplerValue Range LVIDd 2D 4.49 cm [ 3.80 - 5.20 ] AV Peak Vel1.1 m/s [ 1.0 - 1.7 ] LVIDs 2D 3.51 cm [ 2.20 - 3.50 ] AV Peak PG4.84 mmHg IVSd 2D 0.88 cm [ 0.60 - 0.90 ] AV Mean PG3 mmHg LVPWd 2D 0.78 cm [ 0.60 - 0.90 ] AV VTI20.5 cm LV Thickness Ratio 1.1 LVOT Peak Vel0.9 m/s [ 0.7 - 1.1 ] LV FS 2D 21.79 % [ 27.00 - 45.00 ] LVOT Peak PG3.24 mmHg LV Mass 2D 121.72 g LVOT Mean PG2 mmHg LV Mass Index 2D 70.77 g/m2 LVOT VTI16.9 cm RWT 0.35 LVOT Diam1.90 cm EDV Mod BP 99.89 ml [ 46.00 - 106.00 ] JANIS VTI2.34 cm2 LV EDV Index 58.08 ml/m2 LVOT/AV VTI0.82 - Dimensionless index (DVI) ESV Mod BP 40.26 ml [ 14.00 - 42.00 ] MV E Peak Vel0.5 m/s [ 0.6 - 1.3 ] EF Mod BP 60 % [ 54 - 74 ] MV A Peak Vel0.6 m/s [ 1.0 - 1.2 ] LV GLS -16.8 % [ -25.0 - -18.0 ] MV E/A0.9 ratio [ 0.8 - 1.5 ] LA Length 4C 5.13 cm MV Peak Vel0.5 m/s LA Length 2C 4.28 cm MV Peak PG1.00 mmHg LA Volume BP 25.14 ml MV Mean PG0 mmHg LA Volume Index 14.62 ml/m2 [ 16.00 - 34.00 ] MV VTI10.6 cm MV Annulus 2D 2.45 cm MV Decel Yppg221.79 msec [ 104.00 - 258.00 ] RV Base Dimen 2D 2.4 cm [ 2.5 - 4.2 ] Med E` Vel7.2 cm/sec [ 8.0 - 25.0 ] TAPSE 1.64 cm [ 1.71 - 5.00 ] Lat E` Vel7.8 cm/sec [ 10.0 - 25.0 ] RA Volume 16.80 ml Average E/E`6.67 RA Volume Index 9.77 ml/m2 MR Peak Vel5.1 m/s AoR Diam 2D 2.91 cm [ 2.70 - 3.70 ] MR Peak PG104.04 mmHg Ao Root Index 1.69 cm/m2 [ 1.00 - 2.00 ] MV Alias Vel0 m/s Asc Ao Diam 2D 2.51 cm MR BJT886.6 cm Asc Ao Index 1.46 cm/m2 MR Flow0.00 ml/sec MR PISA 0.4 MR EROA 0.1 cm2 PISA Regurgitant Volume 17.8 ml RV S` 9.06 cm/sec PV Peak Jamey 0.6 m/s [ 0.4 - 0.8] PV Peak PG 1.44 mmHg Electronically Signed By: Boaz Oliver MD 10/24/2024 14:26:21 CDT Veronica Stevens NP CV ECHO PROCEDURES Final Re sult * MAMMOGRAPHY (04/15/2023) Historical Provider HEALTH MAINTENANCE Final Result from Last 3 Months or Most Recently Relevant to Health Maintenance Insurance [employer] MEDICARE MEDICARE Advance Directives For more information, please contact: [phone] * Full Code (Latest Code Status on File) Date Activated Date Inactivated Comments 10/10/2023 11:18 PM 10/12/2023 6:15 PM * Full Code Date Activated Date Inactivated Comments 01/12/2023 4:14 PM 01/15/2023 8:26 PM * Full Code Date Activated Date Inactivated Comments 12/28/2022 5:52 PM 12/29/2022 5:02 PM Care Teams Inspector Material Disposition Relationship Specialty Start Date End Date Piter Coronel MD [address] [place] [address] PCP - General Family Medicine 09/14/22 [facility] [address] [place] [address] Referring Physician Cardiology 10/22/22 Royer Solis MD [address] [address] Referring Physician Obstetrics and Gynecology 03/08/23 Yolande Navarro NP [address] [address] Nurse Practitioner Cardiology 10/12/23
--- OUTSIDE RECORDS SUMMARY | 2024-12-21 16:27 | XMS_ITS | Encounter Summary ---
Author Organization [facility] Address [address] [place] [address] Care Team Providers Care Railroad Hand Name Role Phone Marbella Neumann APRN-SKIRT CLIPPER Primary Care Provider [phone] Encounter Details Date Type Department Care Team (Late st Contact Info) Description 10/10/2019 Lab Requisition [facility] [address] [place] [id number] [place] [address] Social History Tobacco Use Types Packs/Day Years Used Date Smoking Tobacco: Every Day Smokeless Tobacco: Never Comments No Sex and Gender Information Value Date Recorded Sex Assigned at Not on file Legal Sex Female 2:55 PM CDT Gender Identity Not on file Sexual Orientation Not on file documented as of this encounter Plan of Treatment Not on file documented as of this encounter Procedures Procedure Name Priority Date/Time Associated Diagnosis Comments DERMATOPATHOLOGY Routine 10/09/2019 12:0 0 AM CDT documented in this encounter Results * DERMATOPATHOLOGY (10/09/2019 12:00 AM CDT) Case Report Dermatopathology Report Case: [id number] Authorizing Provider: Kang Sanchez MD Collected: 10/09/2019 12:00 AM Ordering Location: [facility] Lab Received: 10/10/2019 11:25 AM Pathologist: Ophelia Wiggins MD Specimen: Skin, left paranasal skin 0 2:47 PM CDT DERMATOPATHOLOGY LABORATORY Final Diagnosis Specimen A. SKIN, left paranasal skin: ACTINIC KERATOSIS (L57.0) POST-INFLAMMATORY PIGMENT ALTERATION (L81.9) 0 2:47 PM CDT DERMATOPATHOLOGY LABORATORY at 1447 CDT Clinical History R/O dys nevus vs nevus vs lentigo. 0 2:47 PM CDT DERMATOPATHOLOGY LABORATORY Gross Description Specimen A: Received is one formalin filled container labeled with the patient's name and designated left paranasal skin. The specimen consists of a shave biopsy measuring 6a3m1yo. Jar 0. 0 2:47 PM CDT DERMATOPATHOLOGY LABORATORY Microscopic Description Specimen A. SKIN, left paranasal skin: There is focal parakeratosis. The lower half of the epidermis shows disorderly maturation of keratinocytes with nuclear pleomorphism. Sections show abundant melanin within melanophages around the superficial vascular plexus. 0 2:47 PM CDT DERMATOPATHOLOGY LABORATORY Disclaimer An external and internal positive and negative controls are appropriate for the histochemical, immunohistochemical and immunofluorescence stain(s) in this case (if any), except where stated explicitly. The performance characteristics of the stain(s) cited in this report were developed and its performance characteristic determined by the Dermatopathology Laboratory at [facility], directed by Dr. Jakub Valadez. These tests need not be, and therefore are not, approved by the [place] Food and Drug Administration. The tests are used for clinical purposes. Billing Codes Specimen Charges Stain Charges 00097 1 0 2:47 PM CDT DERMATOPATHOLOGY LABORATORY Embedded Images 0 2:47 PM CDT DERMATOPATHOLOGY LABORATORY Pathology/Cytolog y TISSUE SPECIMEN FROM SKIN / Unknown 10/09/2019 10/10/2019 11:25 AM CDT Kang Sanchez MD LAB - PATHOLOGY/CYTOLOGY ORD ERABLES Final Result DERMATOPATHOLOGY LABORATORY [facility] - Department of Dermatology [address] [place] [address], 5th Floor Lab [address] [place], [place] [id number] [place] [address] documented in this encounter Visit Diagnoses Not on filedocumented in this encounter Care Teams Railroad Hand Relationship Specialty Start Date End Date Marbella Neumann APRN-CHADWICK [address] [phone] PCP - General 06/30/21 documented as of this encounter
--- OUTSIDE RECORDS SUMMARY | 2024-12-21 16:27 | XMS_ITS | Encounter Summary ---
Author Organization [facility] Mis [employer] [facility] Address [address] [place] [phone] Phone Care Team Providers Care Resolution Expert Name Role Phone Alyssa Monterroso CLERICAL TRANSCRIBER Primary Care Provider [phone] Encounter Details Date Type Department Care Team (Late Contact Info) Description 12/19/2024 Documentation Only [employer] [address] [address] Yinka Blackburn MD [address] [facility] 1 [place] [address] Social History Tobacco Use Types Packs/Day Years Used Date Smoking Tobacco: Every Day Cigarettes Alcohol Use Standard Drinks/Week Comments Yes 0 (1 standard drink = 0.6 oz pur e alcohol) Comments Unknown Sex and Gender Information Value Date Recorded Sex Assigned at Not on file Legal Sex Female 4:34 PM EST Gender Identity Not on file Sexual Orientation Not on file documented as of this encounter Plan of Treatment Upcoming Encounters Date Type Department Care Team (Late Contact Info) Description 12/26/2024 11:15 AM CDT Office Visit [employer] [facility] [address] [facility] 15 [place] [address] Yinka Blackburn MD [address] [facility] 1 [place] [address] documented as of this encounter Visit Diagnoses Not on filedocumented in this encounter Care Teams Resolution Expert Relationship Specialty Start Date End Date Alyssa Monterroso, FRANCIA [address] [place] [phone] PCP - General Family Medicine 08/11/24 documented as of this encounter
--- OUTSIDE RECORDS SUMMARY | 2024-12-21 16:27 | XMS_ITS | Encounter Summary ---
Author Organization [facility] Address [address] [facility] [place] [address] Care Team Providers Care Senior Quality Assurance Specialist Name Role Phone Marbella Neumann APRN-NOODLE MAKER Primary Care Provider [phone] Encounter Details Date Type Department Care Team (Late st Contact Info) Description 02/09/2019 Lab Requisition [facility] DermPath Lab [address] [facility] [place] [phone] Kang [place] [address] Social History Tobacco Use Types Packs/Day Years [...] Priority Date/Time Associated Diagnosis Comments DERMATOPATHOLOGY Routine 02/08/2019 12:0 0 AM CDT documented in this encounter Results * DERMATOPATHOLOGY (02/08/2019 12:00 AM CDT) Case Report Dermatopathology Report Case: [id number] Authorizing Provider: Kang Sanchez MD Collected: 02/08/2019 12:00 AM Ordering Location: [facility] DermPath Lab Received: 02/09/2019 11:36 AM Pathologist: Arron Valadez MD Specimen: Skin, left upper chest at shoulder 1:26 PM CDT DERMATOPATHOLOGY LABORATORY Final Diagnosis Specimen A. SKIN, left upper chest at shoulder: LICHEN PLANUS-LIKE KERATOSIS (BENIGN LICHENOID KERATOSIS) (L82.1) 1:26 PM T DERMATOPATHOLOGY LABORATORY at 1326 CDT Clinical History R/O ISK, BCC, SCC. 1:26 PM CDT DERMATOPATHOLOGY LABORATORY Gross Description Specimen A: Received is one formalin filled container labeled with the patient's name and designated left upper chest at shoulder. The specimen consists of a shave biopsy measuring [id number]. Jar 0. 1:26 PM CDT DERMATOPATHOLOGY LABORATORY Microscopic Description Specimen A. SKIN, left upper chest at shoulder: The epidermis is mildly acanthotic. There is a lichenoid infiltrate with vacuolar changes of basilar keratinocytes and scattered necrotic keratinocytes. 1:26 PM T DERMATOPATHOLOGY LABORATORY Disclaimer An external and internal positive and negative controls are appropriate for the histochemical, immunohistochemical and immunofluorescence stain(s) in this case (if any), except where stated explicitly. The performance characteristics of the stain(s) cited in this report were developed and its performance characteristic determined by the Dermatopathology Laboratory at [facility], directed by Dr. Jakub Valadez. These tests need not be, and therefore are not, approved by the [place] Food and Drug Administration. The tests are used for clinical purposes. Billing Codes Specimen Charges Stain Charges 37878 1 1:26 PM CDT DERMATOPATHOLOGY LABORATORY Embedded Images 1:26 PM CDT DERMATOPATHOLOGY LABORATORY Pathology/Cytolog y TISSUE SPECIMEN FROM SKIN / Unknown 02/08/2019 02/09/2019 11:36 AM CDT Kang Sanchez MD LAB - PATHOLOGY/CYTOLOGY ORD ERABLES Final Result DERMATOPATHOLOGY LABORATORY [facility] - Department of Dermatology [address] [place] [address], 5th [place] [address], [facility] [phone] documented in this encounter Visit Diagnoses Not on filedocumented in this encounter Care Teams Senior Quality Assurance Specialist Relationship Specialty Start Date End Date Marbella Neumann APRN-CHADWICK [address] [address] PCP - General 06/30/21 documented as of this encounter
--- OUTSIDE RECORDS SUMMARY | 2024-12-21 16:27 | XMS_ITS | Referral Summary ---
Author Organization [facility] Address [address] [facility] [address] [place] [address] Phone Care Team Providers Care Chief Of Party Name Role Phone Piter Coronel MD Primary Care Provider [phone] Marifer Cornelius MD Unavailable [phone] Royer Solis MD Unavailable [phone] Yolande Navarro NP Unavailable Encounters Date Type Department Care Team Description 11/27/2024 Telephone [facility] [address] [place] [address] Piter Coronel MD Medical Question/Miscellane ous 10/27/2024 Orders Only [facility] Cardiology [address] [facility] Medical Office Building [address] [place] [phone] Piter Martinez MD 10/24/2024 Orders Only [facility] and [facility] Transplant Heart [address] [facility] [address] Mailstop [phone] [place] [address] Brielle Rayo RN HFrEF (heart failure with reduced ejection fraction) (HCC) (Primary Dx) 10/24/2024 9:22 AM CDT - 10/24/2024 11:59 PM CDT Hospital Encounter [facility] Cardiac Diagnostic Lab [facility] 8th [place] [phone] Chronic systolic heart failure (HCC) Discharge Disposition: Discharge to home or self care 10/24/2024 10:45 AM CDT Office Visit [facility] Cardiology [address] [facility] 8th [place] [address] [place] [phone] Servando Villafuerte MD Chronic systolic heart failure (HCC) 09/26/2024 Telephone [facility] Pulmonary at [address] [place] [address] Dot Clifford LPN sick call from Last 3 Months Allergies Active Allergy Reactions Criticality Noted Date [...] ns:HFrEF (heart failure with reduced ejection fraction) ([facility]) Take 0.5 tablets (20 mg total) by mouth daily 10/25/19 24 Active linaCLOtide (LINZESS) 72 mcg capsule Take 1 capsule (72 mcg total) by mouth product safety head before breakfast 90 capsule 3 12/16/19 24 [...] after use. Do not swallow. 30 each 03/07/20 24 Active Additional Information Patient taking differently:1 puff inhalation Daily, Rinse mouth with water after use. Do not swallow.Pt ran out 2 wks ago, Reported on 10/24/2024 azelastine (ASTELIN) 137 mcg (0.1 %) nasal spray Administer 1 spray into each nostril 2 (two) times a day Use in each nostril as directed 30 mL 03/07/20 24 025 Active cyanocobalamin (Vitamin B-12) [...] 07/17/2024 Assessment & Plan (07/17/2024 8:21 PM AUDIO VISUAL PROJECT MANAGER): She has tried and failed multiple inhalers, [...] 07/17/2024 Assessment & Plan (07/17/2024 8:26 PM AUDIO VISUAL PROJECT MANAGER): Briefly on life vest, now with BiV [...] Localized swelling, mass and lump, neck 09/08/19 Assessment & Plan (09/08/2023 11:09 AM CDT): CT Neck Continue Nasal saline spray (Simply saline, Little Remedies, [place], [place]) 2 second sprays or 2 squeezes into each nostril while looking down over the sink, do not need to sniff in. Continue Amina at half strength or try Cetirizine (Zyrtec) TMJ dysfunction discussed and Handout provided Urge incontinence of urine 07/16/2023 Assessment & Plan (07/16/2023 4:41 PM AUDIO VISUAL PROJECT MANAGER): Not well controlled, recently worsening; has no sensation than son incontinence Recommend continued work on pelvic floor therapy; if no improvement, would refer to urogynecology for evaluation Patient currently on multiple diuretics; which may exacerbate issues; will continue to monitor Chronic bilateral low back pain without sciatica 07/16/2023 Assessment & Plan (07/16/2023 4:41 PM AUDIO VISUAL PROJECT MANAGER): Has chronic inflammation, uses Tylenol PM p.r.n. [...] patient will resume with cardiac rehab at [facility] on 01/25 - limited mobility before getting [...] needed -tele Cardiac resynchronization th erapy defibrillator (SOUND TECHNICIAN SUPERVISOR-D) in place 12/28/2022 Assessment & Plan (12/28/2022 7:33 PM CDT): Admitted for post procedure observation after placement of SOUND TECHNICIAN SUPERVISOR-D in EP lab earlier today. -bedrest overnight [...] well controlled; patient has been following with [facility] Oncology; receiving regular therapeutic phlebotomies [...] her spiriva and arnuity ellipta bc her adult health clinical nurse specialist told her she doesn't really have copd -states she has had dyspnea since she had covid in 2020 -check PFTs -prn albuterol for wheezing Assessment & Plan (01/13/2023 4:05 PM CDT): -pt states she stopped taking her spiriva and arnuity ellipta bc her adult health clinical nurse specialist told her she doesn't really have copd [...] 08/28/2021 Assessment & Plan (07/17/2024 8:18 PM AUDIO VISUAL PROJECT MANAGER): CT chest was completed, awaiting dictation She [...] 03/17/2016 Assessment & Plan (07/17/2024 8:22 PM AUDIO VISUAL PROJECT MANAGER): She has a previous referral to sleep [...] g Assessment & Plan (07/16/2023 4:40 PM AUDIO VISUAL PROJECT MANAGER): Continues to have stomach pain, frequent sudden [...] to have significant constipation; no relief with hixo-vlc-naldzkl treatments Previously on Linzess; had good response with Linzess Start Linzess 72 mcg daily; will adjust dose based upon response Gastroesophageal reflux disease 09/23/2015 Assessment & Plan (12/28/2022 7:32 PM CDT): -continue home PPI Resolved Problems Problem Noted Date Diagnosed Date Resolved Date Shortness of breath 08/31/2022 01/20/20 23 Overview (08/31/2022): Added automatically from request for surgery [id number] Chest pain on breathing 08/31/202201/05 Overview (09/16/2022): Added automatically from request for surgery [id number] Dizziness and giddiness 09/26/202103/07 Atherosclerosis of coronary artery 08/28/2021 09/21/2022 Dependence on supplemental oxygen 08/28/2021 01/19/2023 Palpitations 02/13/2021 03/16/2023 Nausea 09/24/2015 03/16/2023 Abnormal mammogram 11/19/2011 3 Immunizations Immunization Administration Dates Next Due Influenza, [...] 10/06/2013 Tdap 02/24/2016 Tetanus toxoid, adsorbed 10/06/2013 Social History Tobacco Use Types Packs/Day Years Used Date Smoking Tobacco: Former Cigarettes 0.3 15 1 988 - 2002 Smokeless Tobacco: Former Tobacco Cessation:Counseling Given: Not Answered [facility] Utilities Answer Date Recorded In the past 12 months has [employer], [employer], or water [employer] threatened to shut off services in your [...] week 10/11/2023 How often do you attend chur or cheondoism services? Never 10/11/2023 Do you belong to any clubs o r organizations such as taoist groups, unions, fraternal or athletic groups, or [...] you are drinking? Patient does not drink Q3: How often do you have si [...] place to sleep or slept in a skilled nursing (including now)? No 10/11/2023 Personal Safety Answer [...] on file Legal Sex Female 12:41 AM AUDIO VISUAL PROJECT MANAGER Gender Identity Not on file Sexual Orientation Not on file Last Filed Vital Signs Vital Sign Reading Time Taken Comments Blood Pressure 107/72 10/24/2024 10:37 AM CDT Pulse 73 10/24/2024 10:37 AM CDT Temperature 36.4 C (97.6 F) 07/17/2024 11:44 AM AUDIO VISUAL PROJECT MANAGER Respiratory Rate 16 07/17/2024 11:44 AM AUDIO VISUAL PROJECT MANAGER Oxygen Saturation 99% 10/24/2024 10:37 AM CDT Inhaled Oxygen Concentration - - Weight 64.4 kg (142 lb) 10/24/2024 10:37 AM CDT Height 160 cm (5' 3) 07/17/2024 11:44 AM AUDIO VISUAL PROJECT MANAGER Body Mass Index 25.15 07/17/2024 11:44 AM AUDIO VISUAL PROJECT MANAGER Plan of Treatment Not on file Medical Devices Implanted Type Area Electric Powerline Examiner Device Identifier Shelf Expiration Date Model / Serial / Lot [employer] Defib Cardiac [id number] [place] Hf Df4 Is-4 Is-1 Cnctr Avelw320m - [id number] - [id number] Implanted:Qty: 1 on 12/28/2022 by Piter Martinez MD at [facility] ICD [employer] 10/04/2024 [id number] / [id number] / [employer] Tendril Sts 6fr 52cm Is-1 Connector Active Fixation Bipolar Soft [id number] - [id number] - [id number] Implanted:Qty: 1 on 12/28/2022 by Piter Martinez MD at [facility] Lead [employer] 11/04/20252087TC/52 / [id number] / [employer] Durata 6.8fr 58cm 1 Coil True Bipolar Active Fixation Extendable 7122q/58 - [id number] - [id number] Implanted:Qty: 1 on 12/28/2022 by Piter Martinez MD at [facility] Lead [employer] 11/04/2025 7122Q/58 / [id number] / [employer] Quartet 5fr [id number] 4 Electrode Is-4 Connector Steerable Tip 1458q/86 - [id number] - [id number] Implanted:Qty: 1 on 12/28/2022 by Piter Martinez MD at [facility] Lead [employer] 09/04/2025 1458Q/86 / [id number] / Other - See Comments Implanted:Qty: 1 [...] estimate based on prior usage) Presenting Rhythm (DE) Atrial Sensing-BiVentricular Pacing (-BiVP) --- rate 82 Arrhythmic events (AE) No new arrhythmic events in monitoring period Transmission Information (TI) Device Summary Report Procedure Note Piter Martinez MD - 11/01/2024 Interpretation Summary: Battery and Leads (BL) Normal parameters noted on battery and lead(s) --- 6.1 years remaining(this is an estimate based on prior usage) Presenting Rhythm (DE) Atrial Sensing-BiVentricular Pacing (-BiVP) --- rate 82 [...] AM CDT Narrative 10/24/2024 2:27 PM CDT [facility] Card[place] [address] Transthoracic Echocardiographic Report Patient Name: OLGA DANG G : 1960 (64y 8m) Gender: F Study Date: 10/24/2024 09:32:32 Ht(Inch): 63 Wt(Lb): 145.94 BSA: 1.72 Game Bird Farmer: Maranda Diaz RDCS Location: [facility] Order Provider: VERONICA STEVENS Heart Rate: 81 [...] Procedure Note Boaz Oliver MD - 10/24/2024 [facility] [place] [address] Transthoracic Echocardiographic Report Patient Name: OLGA DANG G : 1960 (64y 8m) Gender: F Study Date: 10/24/2024 09:32:32 Ht(Inch): 63 Wt(Lb): 145.94 BSA: 1.72 Game Bird Farmer: Maranda Diaz RDCS Location: [facility] Order Provider:VERONICA STEVENS Heart Rate: 81 BMI: [...] MV Annulus 2D 2.45 cm MV Decel Rcod328.79 msec [ 104.00 - 258.00 ] RV [...] Asc Ao Diam 2D 2.51 cm MR ETG317.6 cm Asc Ao Index 1.46 cm/m2 MR Flow0.00 ml/sec MR PISA 0.4 MR EROA 0.1 cm2 PISA Regurgitant Volume 17.8 ml RV S` 9.06 cm/sec PV Peak Jamey 0.6 m/s [ 0.4 - 0.8] PV Peak PG 1.44 mmHg Electronically Signed By: Boaz Oliver MD 10/24/2024 14:26:21 CDT Veronica Stevens SENIOR SQL DBA CV ECHO PROCEDURES Final Re sult * MAMMOGRAPHY (04/15/2023) Historical Provider HEALTH MAINTENANCE Final Result from Last 3 Months or Most Recently Relevant to Health Maintenance Insurance COUNT INCLUDES THE [facility] MEDICARE [employer] MEDICARE Advance Directives For more information, please contact: [phone] * Full Code (Latest Code Status on File) Date Activated Date Inactivated Comments 10/10/2023 11:18 PM 10/12/2023 6:15 PM * Full Code Date Activated Date Inactivated Comments 01/12/2023 4:14 PM 01/15/2023 8:26 PM * Full Code Date Activated Date Inactivated Comments 12/28/2022 5:52 PM 12/29/2022 5:02 PM Care Teams Chief Of Party Relationship Specialty Start Date End [place] [address] PCP - General Family Medicine 09/14/22 Marifer Cornelius MD [address] [place] [address] Referring Physician Cardiology 10/22/22 Royer Solis MD [address] [id number] Referring Physician Obstetrics and Gynecology 03/08/23 Yolande Navarro NP [address] [address] Nurse Practitioner Cardiology 10/12/23
--- OUTSIDE RECORDS SUMMARY | 2024-12-21 16:27 | XMS_ITS | Encounter Summary ---
Author Organization [facility] Address [address] [place] [address] Care Team Providers Care Waxer Name Role Phone Marbella Neumann APRN-CORRECTIONAL SUPERVISOR Primary Care Provider [phone] Encounter Details Date Type Department Care Team (Late st Contact Info) Description 04/05/2018 Lab Requisition [facility] Care DermPath Lab [address] [facility] [place] [phone] Kang [place] [address] Social History Tobacco Use Types Packs/Day Years [...] Priority Date/Time Associated Diagnosis Comments DERMATOPATHOLOGY Routine 04/04/2018 12:0 0 AM CDT documented in this encounter Results * DERMATOPATHOLOGY (04/04/2018 12:00 AM CDT) Case Report Dermatopathology Report Case: [id number] Authorizing Provider: Kang Sanchez MD Collected: 04/04/2018 12:00 AM Pathologist: Ophelia Wiggins MD Received: 04/05/2018 11:16 AM Specimen: Skin, left superior medial cheek 8 1:14 PM CDT DERMATOPATHOLOGY LABORATORY Final Diagnosis Specimen A. SKIN, left superior medial cheek: SEBORRHEIC KERATOSIS (L82.1) 1:14 PM CDT DERMATOPATHOLOGY LABORATORY at 1314 CDT Clinical History R/O SKs vs vesicular disorder. 1:14 PM CDT DERMATOPATHOLOGY LABORATORY Gross Description Specimen A: Received is one formalin filled container labeled with the patient's name and designated left superior medial cheek. The specimen consists of a shave biopsy measuring 4i7p1mh. Jar 0. 1:14 PM CDT DERMATOPATHOLOGY LABORATORY Microscopic Description Specimen A. SKIN, left superior medial cheek: Sections show an acanthotic lesion composed of relatively uniform keratinocytes. There is hyperkeratosis and pseudo horn cysts formation. 1:14 PM CDT DERMATOPATHOLOGY LABORATORY Disclaimer An external and internal positive and negative controls are appropriate for the histochemical, immunohistochemical and immunofluorescence stain(s) in this case (if any), except where stated explicitly. The performance characteristics of the stain(s) cited in this report were developed and its performance characteristic determined by the Dermatopathology Laboratory at [facility]. These tests need not be, and therefore are not, approved by the [place] Food and Drug Administration. The tests are used for clinical purposes. Billing Codes Specimen Charges Stain Charges 19237 1 1:14 PM CDT DERMATOPATHOLOGY LABORATORY Embedded Images 1:14 PM CDT DERMATOPATHOLOGY LABORATORY Pathology/Cytolog y TISSUE SPECIMEN FROM SKIN / Unknown 04/04/2018 04/05/2018 11:16 AM CDT us Kang Sanchez MD LAB - PATHOLOGY/CYTOLOGY ORD ERABLES Final Result DERMATOPATHOLOGY LABORATORY [facility] - Department of Dermatology [address] [facility], 5th [place] [address], [facility] [phone] documented in this encounter Visit Diagnoses Not on filedocumented in this encounter Care Teams Waxer Relationship Specialty Start Date End Date Marbella Neumann APRN-CHADWICK [address] [phone] PCP - General 06/30/21 documented as of this encounter
--- OUTSIDE RECORDS SUMMARY | 2024-12-21 16:27 | XMS_ITS | Encounter Summary ---
Author Organization [facility] Address [address] [place] [address] Care Team Providers Care Third Cook Name Role Phone Marbella Neumann APRN-PLC PROGRAMMER Primary Care Provider [phone] Encounter Details Date Type Department Care Team (Late st Contact Info) Description 02/28/2019 Lab Requisition [facility] DermPath Lab [address] [facility] [place] [address] [place] [address] Social History Tobacco Use Types Packs/Day Years [...] Priority Date/Time Associated Diagnosis Comments DERMATOPATHOLOGY Routine 02/27/2019 12:0 0 AM CDT documented in this encounter Results * DERMATOPATHOLOGY (02/27/2019 12:00 AM CDT) Case Report Dermatopathology Report Case: [id number] Authorizing Provider: Kang Sanchez MD Collected: 02/27/2019 12:00 AM Ordering Location: [facility] DermPath Lab Received: 02/28/2019 01:13 PM Pathologist: Ophelia Wiggins MD Specimen: Skin, sup right shoulder 12:43 PM CDT DERMATOPATHOLOGY LABORATORY Final Diagnosis Specimen A. SKIN, sup right shoulder: BENIGN VERRUCOUS KERATOSIS, INFLAMED (L82.1) 12:43 PM CDT DERMATOPATHOLOGY LABORATORY at 1243 CDT Clinical History R/O ISK, SCC. 12:43 PM CDT DERMATOPATHOLOGY LABORATORY Gross Description Specimen A: Received is one formalin filled container labeled with the patient's name and designated sup right shoulder. The specimen consists of a shave biopsy measuring [id number]. Jar 0. 12:43 PM CDT DERMATOPATHOLOGY LABORATORY Microscopic Description Specimen A. SKIN, sup right shoulder: Sections show hyperkeratosis, papillomatosis, hypergranulosis, and acanthosis. Inflammatory cells are present within the dermis. These histological findings can be seen in a verruca vulgaris or a seborrheic keratosis. 12:43 PM CDT DERMATOPATHOLOGY LABORATORY Disclaimer An external and internal positive and negative controls are appropriate for the histochemical, immunohistochemical and immunofluorescence stain(s) in this case (if any), except where stated explicitly. The performance characteristics of the stain(s) cited in this report were developed and its performance characteristic determined by the Dermatopathology Laboratory at [facility], directed by Dr. Jakub Valadez. These tests need not be, and therefore are not, approved by the [place] Food and Drug Administration. The tests are used for clinical purposes. Billing Codes Specimen Charges Stain Charges 91463 1 12:43 PM CDT DERMATOPATHOLOGY LABORATORY Embedded Images 12:43 PM CDT DERMATOPATHOLOGY LABORATORY Pathology/Cytolog y TISSUE SPECIMEN FROM SKIN / Unknown 02/27/2019 02/28/2019 1:13 PM CDT us Kang Sanchez MD LAB - PATHOLOGY/CYTOLOGY ORD ERABLES Final Result DERMATOPATHOLOGY LABORATORY [facility] - Department of Dermatology [address] [place] [address], 5th Floor Lab B [address] [phone] documented in this encounter Visit Diagnoses Not on filedocumented in this encounter Care Teams Third Cook Relationship Specialty Start Date End Date Marbella Neumann APRN-CHADWICK [address] [address] PCP - General 06/30/21 documented as of this encounter
--- OUTSIDE RECORDS SUMMARY | 2024-12-21 16:27 | XMS_ITS | Clinical Summary ---
Author Organization [facility] Address [address] [place] [address] Phone Care Team Providers Care Director Life Insurance Name Role Phone Royer Solis MD Unavailable [phone] Allergies No known active allergies Medications dicyclomine (BENTYL) 10 MG Capsule Take 10 mg by mouth nightly. Active Mometasone Furo-Formoterol Fum (DULERA) 200-5 MCG/ACT Aerosol take 2 Puffs by inhalation 2 times daily. Active naproxen (NAPROSYN) 500 MG Tablet Take 500 mg by mouth 2 times daily (with meals). Active Magnesium 250 MG Tablet Take 2 Tabs by mouth daily. Active Probiotic Product (PROBIOTIC DAILY PO) Take 1 Tab by mouth daily. Active acetaminophen (TYLENOL) 500 MG Tablet Take 500 mg by mouth 2 times daily as needed for Pain. Reported on 10/21/2016 Active cyclobenzaprine (FLEXERIL) 10 MG Tablet Take 10 mg by mouth 3 times daily as needed for Muscle spasms. Active busPIRone (BUSPAR) 10 MG Tablet Take 1 Tab by mouth 2 times daily. 60 Tab 3 7 Active varenicline (CHANTIX CONTINUING MONTH MANOLO) 1 MG Tablet Take 1 Tab by mouth 2 times daily. 60 Tab 1 7 Active Additional Information Patient not taking.Reported on 02/10/2017 lansoprazole (PREVACID) 30 MG CAPSULE DELAYED RELEASE Take 1 Cap by mouth daily. 90 Cap 3 7 Active triamcinolone (KENALOG) 0.1 % Cream 7 Active albuterol (PROAIR HFA) 108 (90 Base) MCG/ACT Aerosol Solution take 1 Puff by inhalation every 6 hours as needed for Wheezing. 8.5 g 1 7 Active Cyanocobalamin (B-12) 1000 MCG Capsule Take 1,000 mcg by mouth Every other day. 30 Cap 3 7 Active Active Problems Problem Noted Date Diagnosed Date B12 deficiency 11/30/2016 Vitamin D insufficiency 11/30/2016 Anxiety 10/21/2016 Sleep apnea 10/21/2016 Tobacco abuse 10/21/2016 Family history of hypothyroidism 10/21/2016 Tendinitis of left rotator cuff 08/27/2016 Thyroid nodule Immunizations Immunization Administration Dates Next Due Influenza, Seasonal, Injectable, Undefined 05/21 Pneumococcal Vaccine Adult - 23 Valent 4 TDAP Vaccine 02/24/2016 Td Vaccine (preservative free) 10/06/2013 Family History Medical History Relation Name Comments Chronic Obstructive Pulmonary Disease Father Cancer Mother Relation Name Status Comments Father Mother Social History Tobacco Use Types Packs/Day Years Used Date Smoking Tobacco: Every Day Cigarettes Tobacco Cessation:Counseling Given: Yes Alcohol Use Standard Drinks/Week Comments Yes 0 (1 standard drink = 0.6 oz pur e alcohol) Comments No Sex and Gender Information Value Date Recorded Sex Assigned at Not on file Legal Sex Female 8:41 PM CDT Gender Identity Not on file Sexual Orientation Not on file Last Filed Vital Signs Vital Sign Reading Time Taken Comments Blood Pressure 118/68 02/10/2017 3:03 PM CDT Pulse 102 02/10/2017 3:03 PM CDT Temperature 36.7 C (98 F) 02/10/2017 3:03 PM CDT Respiratory Rate 18 02/10/2017 3:03 PM CDT Oxygen Saturation 99% 02/10/2017 3:03 PM CDT Inhaled Oxygen Concentration - - Weight 76.7 kg (169 lb) 02/10/2017 3:03 PM CDT Height 161.3 cm (5' 3.5) 02/10/2017 3:03 PM CDT Body Mass Index 29.47 02/10/2017 3:03 PM CDT Plan of Treatment Health Maintenance Due Date Last Done Comments Cologuard 2003 Colonoscopy 2003 Colorectal Cancer Screening 2003 Immunochemical Fecal Occult Blood 2003 Zoster Immunization (1 of 2) 02/02/2008 Pneumococcal Immunization (5 0+ years) (2 of 2 - PCV) 04/27/2015 04/27/2014 SARS-COV-2 Immunization (4 - season) 2024 05/19/2021, 09/16/2020, 08/18/2020 Influenza Immunization (#1) 2025 05/21/2014 Td Immunization Every 10 Yea rs (Adults With 1 Tdap) 02/23/2026 02/24/2016, 10/06/2013 Respiratory Syncytial Virus (RSV) Immunization (Adult) (1 - 1-dose 75+ series) 2033 Pneumococcal Immunization Combined Discontinued 04/27/2014 Hepatitis C Virus (HCV) Screening Completed 05/24/2017 Hepatitis B Immunization Aged Out No longer eligible based on patient's age to complete this topic Human Papillomavirus (HPV) Immunization Aged Out No longer eligible based on patient's age to complete this topic Meningococcal Immunization (ACWY) Aged Out No longer eligible based on patient's age to complete this topic Rotavirus Immunization Aged Out No lo nger eligible based on patient's age to complete this topic Procedures Procedure Name Priority Date/Time Associated Diagnosis Comments HEPATITIS C ANTIBODY Routine 05/24/2017 10:02 AM HAND ALTERATIONS SEAMSTRESS Encounter for hepatitis C screening test for low risk patient from Last 3 Months or Most Recently Relevant to Health Maintenance Results * HEPATITIS C ANTIBODY (05/24/2017 10:02 AM HAND ALTERATIONS SEAMSTRESS) hepatitis C antibody 0.31 <1 S/CO 05/24/2017 11:29 PM HAND ALTERATIONS SEAMSTRESS [facility] Comment: Signal/Cutoff ratio < 0.79 is Nondetected Signal/Cutoff ratio 0.80-0.99 is Grayzone Signal/Cutoff ratio > 0.99 is Detected Supplemental assays are recommended if signal/cutoff ratio is >/=1.00. Signal/cutoff ratio result >/= 5.00 is 97% predictive of positivity for recombinant immunoblot assay (RIBA) and will be reported to the [place] Department of Public Health as required. Blood specimen (specimen) Venipuncture / Unknown 05/24/2017 10:02 AM HAND ALTERATIONS SEAMSTRESS 05/24/2017 10:02 AM HAND ALTERATIONS SEAMSTRESS us Vincenzo Avila MD CHEMISTRY ORDERABLES Rika l Result [facility] [address] [place] [address], from Last 3 Months or Most Recently Relevant to Health Maintenance Insurance [facility] OAP Advance Directives * Full Code (Latest Code Status on File) Date Activated Date Inactivated Comments 08/27/2016 7:51 AM 08/27/2016 5:13 PM CPR-Full Ayo atment: FULL ARREST: Attempt Resuscitation/CPR wit intubation and mechanical ventilation. PRE-ARREST: Use entire range of life support measures to stabilize the patient. Care Teams Director Life Insurance Relationship Specialty Start Date End Date Royer Solis MD [address] [place] [address] Obstetrics & Gynecology 12/07/16
--- OUTSIDE RECORDS SUMMARY | 2024-12-21 16:27 | XMS_ITS | Clinical Summary ---
Author Organization [facility] Address [address] [facility] [place] [address] Care Team Providers Care Dog Barber Name Role Phone Piter Coronel MD Primary Care Provider [phone] Allergies No known active allergies Medications albuterol sulfate 90 mcg/Actuation inhaler albuterol sulfate HFA 90 mcg/actuation aerosol inhaler Inhale 2 puffs every 4-6 hours by inhalation route as needed for 30 days. Activ e buPROPion HCL (WELLBUTRIN XL) 150 mg Extended Release 24 hour tablet bupropion HCl XL 150 mg 24 hr tablet, extended release Active cyclobenzaprine (FLEXERIL) 5 mg Tablet cyclobenzaprine 5 mg tablet TAKE 1 TABLET BY MOUTH EVERY 8 HOURS NEEDED FOR SPASMS Active diltiaZEM (CARDIZEM CD) 120 mg Controlled Delivery 24 hour capsule Take 120 mg by mouth daily. 05/13/20 22 Active omeprazole (PriLOSEC) 40 mg Capsule, Delayed Release(E.C.) 06/01/20 22 Active tiotropium (Spiriva with HandiHaler) 18 mcg capsule every 24 hours. Ac tive Entresto 24-26 mg Tablet Take 0.5 Tablets by mouth 2 times daily. 10/08/19 23 Active Jardiance 10 mg tablet Take 10 mg by mouth daily. 10/21/19 23 Active metoprolol succinate (TOPROL XL) 25 mg Extended Release 24 hour tablet Take 25 mg by mouth daily at bedtime. 11/04/19 23 Active citalopram (CeleXA) 20 mg tablet Take 20 mg by mouth daily. 09/15/19 23 Active levalbuterol HFA (XOPENEX HFA) 45 mcg/Actuation HFA Aerosol Inhaler Take 2 Puffs by inhalation. 10/01/19 23 Active levalbuterol (XOPENEX) 1.25 mg/3 mL Solution for Nebulization 1.25 mg. 10/02/19 Active LORazepam (ATIVAN) 0.5 mg tablet Take 0.5 mg by mouth. 11/17/19 Active Active Problems No known active problems Family History Medical History Relation Name Comments Heart Disease Brother Lung Cancer Brother No Known Problems Daughter 1 No Known Problems Daughter 2 No Known Problems Daughter 3 Heart Disease Father Pancreatic Cancer Mother No Known Problems Sister 1 No Known Problems Sister 2 Diabetes Sister 3 Hemochromatosis Sister 3 No Known Problems Sister 4 Relation Name Status Comments Brother Daughter 1 Daughter 2 Alive Daughter 3 Father Mother Sister 1 Alive Sister 2 Alive Sister 3 Alive Sister 4 Alive Social History Tobacco Use Types Packs/Day Years Used Date Smoking Tobacco: Former Cigarettes 0.5 15 0 06/07/2004 - 06/07/2019 Smokeless Tobacco: Never Tobacco Cessation:Counseling Given: Not Answered Alcohol Use Standard Drinks/Week Comments Yes 0 (1 standard drink = 0.6 oz pur e alcohol) socially Comments Unknown Sex and Gender Information Value Date Recorded Sex Assigned at Not on file Legal Sex Female 10:35 AM CDT Gender Identity Not on file Sexual Orientation Not on file Last Filed Vital Signs Vital Sign Reading Time Taken Comments Blood Pressure 87/51 12/21/2022 1:21 PM CDT Pulse 78 12/21/2022 1:10 PM CDT Temperature 36.7 C (98 F) 12/21/2022 1:10 PM CDT Respiratory Rate 10 12/21/2022 1:10 PM CDT Oxygen Saturation 99% 12/21/2022 1:10 PM CDT Inhaled Oxygen Concentration - - Weight 67.6 kg (149 lb) 12/21/2022 1:10 PM CDT Height 160 cm (5' 3) 06/11/2022 1:17 PM HOUSEKEEPER SUPERVISOR Body Mass Index 26.39 06/11/2022 1:17 PM HOUSEKEEPER SUPERVISOR Plan of Treatment Health Maintenance Due Date Last Done Comments BREAST CANCER SCREENING 1998 COLORECTAL SCREENING 2003 Colorectal Cancer Screening 2003 FIT-DNA Q 3 years 2003 FIT/FOBT Q 1 year 2003 Flex Sig/CT Colonography Q 5 years 2003 ZOSTER VACCINE (1 of 2) 02/02/2008 PNEUMOCOCCAL VACCINE 50+ YEA RS (2 of 2 - PCV) 04/27/2015 04/27/2014 RSV VACCINE (60+ or ) (1 - Risk 60-74 years 1-dose series) 2018 OSTEOPOROSIS SCREENING 2023 INFLUENZA VACCINE (#1) 2025 2, 08/13/2021, 04/11/2019, Additional history exists DTAP/TDAP/TD VACCINES (2 - T d or Tdap) 02/23/2026 02/24/2016, 10/06/2013 Insurance BENEFIT PLANS Care Teams Dog Barber Relationship Specialty Start Date [place] [address] PCP - General Family Practice 12/21/22
--- OUTSIDE RECORDS SUMMARY | 2024-12-21 16:27 | XMS_ITS | Encounter Summary ---
Author Organization [facility] Address [address] [place] [address] Care Team Providers Care Feller Buncher Operator Name Role Phone Marbella Neumann APRN-SPRINKLER FITTER APPRENTICE Primary Care Provider [phone] Encounter Details Date Type Department Care Team (Late st Contact Info) Description 03/22/2019 Lab Requisition [facility] [address] [place] [address] [place] [address] Social History Tobacco Use Types Packs/Day Years [...] Priority Date/Time Associated Diagnosis Comments DERMATOPATHOLOGY Routine 03/21/2019 12:0 0 AM CDT documented in this encounter Results * DERMATOPATHOLOGY (03/21/2019 12:00 AM CDT) Case Report Dermatopathology Report Case: [id number] Authorizing Provider: Kang Sanchez MD Collected: 03/21/2019 12:00 AM Ordering Location: [facility] Received: 03/22/2019 01:02 PM Pathologist: Ophelia Wiggins MD Specimen: Skin, superior right deltoid anterior 11:26 AM CDT DERMATOPATHOLOGY LABORATORY Final Diagnosis Specimen A. SKIN, superior right deltoid anterior: LICHEN PLANUS-LIKE KERATOSIS (BENIGN LICHENOID KERATOSIS) (L82.1) 11:26 AM T DERMATOPATHOLOGY LABORATORY at 1125 CDT Clinical History R/O ISK, SCC, BCC. 11:26 AM CDT DERMATOPATHOLOGY LABORATORY Gross Description Specimen A: Received is one formalin filled container labeled with the patient's name and designated superior right deltoid anterior. The specimen consists of a shave biopsy measuring [id number]. Jar 0. 11:26 AM T DERMATOPATHOLOGY LABORATORY Microscopic Description Specimen A. SKIN, superior right deltoid anterior: The epidermis is mildly acanthotic. There is a lichenoid infiltrate with vacuolar changes of basilar keratinocytes and scattered necrotic keratinocytes. 11:26 AM T DERMATOPATHOLOGY LABORATORY Disclaimer An external and internal positive and negative controls are appropriate for the histochemical, immunohistochemical and immunofluorescence stain(s) in this case (if any), except where stated explicitly. The performance characteristics of the stain(s) cited in this report were developed and its performance characteristic determined by the Dermatopathology Laboratory at [facility], directed by Dr. Jakub Valadez. These tests need not be, and therefore are not, approved by the [place] Food and Drug Administration. The tests are used for clinical purposes. Billing Codes Specimen Charges Stain Charges 20790 1 11:26 AM CDT DERMATOPATHOLOGY LABORATORY Embedded Images 11:26 AM CDT DERMATOPATHOLOGY LABORATORY Pathology/Cytolog y TISSUE SPECIMEN FROM SKIN / Unknown 03/21/2019 03/22/2019 1:02 PM CDT us Kang Sanchez MD LAB - PATHOLOGY/CYTOLOGY ORD ERABLES Final Result DERMATOPATHOLOGY LABORATORY [facility] - Department of Dermatology [address] [place] [address], [address] [place] [address], [facility] [phone] documented in this encounter Visit Diagnoses Not on filedocumented in this encounter Care Teams Feller Buncher Operator Relationship Specialty Start Date End Date Marbella Neumann APRN-[place]WICK [address] [address] PCP - General 06/30/21 documented as of this encounter
--- OUTSIDE RECORDS SUMMARY | 2024-12-21 16:28 | XMS_ITS | Clinical Summary ---
Author Organization [facility] [employer]this [facility] Actimize [facility] Address [address] [facility] [address] [place] [address] Phone Care Team Providers Care Speech Pathology Teacher Name Role Phone Alyssa Monterroso Tori EMBROIDERY WORKER Primary Care Provider [phone] Allergies Active Allergy Reactions Criticality Noted Date Comments Digoxin Other (see comments) Low 03/16/2023 Visual problems, nausea Naltrexone-Bupropion Hcl Er Nausea Low 09/14/2022 Medications albuterol HFA (PROVENTIL HFA;VENTOLIN HFA) 108 (90 Base) MCG/ACT inhaler Inhale 2 puffs every 6 (six) hours if needed 02/19/2017 Active aspirin 81 MG chewable tablet Chew 81 mg in the morning. 10/13/2023 Active citalopram (CeleXA) 40 MG tablet Take 1 tablet by mouth 1 (one) time each day Active cyanocobalamin (VITAMIN B-12) 1000 MCG tablet Take 1,000 mcg by mouth in the morning. 06/23/2024 Active Empagliflozin (Jardiance) 10 MG tablet Take 10 mg by mouth every morning 10/20/2022 Active Fluticasone Furoate (Arnuity Ellipta) 100 MCG/ACT aerosol powder Inhale 1 puff Active furosemide (LASIX) 20 MG tablet Take 20 tablets by mouth 1 (one) time each day Active hydrOXYzine (ATARAX) 25 MG tablet Take 25 mg by mouth every 8 (eight) hours if needed Active linaCLOtide 72 MCG capsule Take 1 capsule by mouth 1 (one) time each day Active LORazepam (ATIVAN) 1 MG tablet Take 1 mg by mouth every 8 (eight) hours if needed 01/13/2024 Active losartan (COZAAR) 25 MG tablet Take 1 tablet by mouth 1 (one) time each day Active metoprolol succinate XL (TOPROL XL) 50 MG 24 hr tablet Take 1 tablet by mouth 1 (one) time each day Active montelukast (SINGULAIR) 10 MG tablet Take 10 mg by mouth every night Active nitroglycerin (NITROSTAT) 0.[address] 0.4 mg under the tongue every 5 (five) minutes if needed 10/12/2023 Active omeprazole (PriLOSEC) [address] capsule Take 1 tablet by mouth 1 (one) time each day 06/01/2022 Active polyethylene glycol (GLYCOLAX) 17 GM/SCOOP powder Take 17 g by mouth in the morning. 10/12/2023 Active senna-docusate (PERICOLACE) 8.6-50 MG per tablet Take 2 tablets by mouth in the morning and 2 tablets in the evening. 10/12/2023 Active spironolactone (ALDACTONE) 25 MG tablet Take 25 mg by mouth 1 (one) time each day 01/31/2024 Active traZODone (DESYREL) 50 MG tablet Take 50 mg by mouth if needed Active Fluticasone Furoate-Vilante rol (Breo Ellipta) 100-25 MCG/ACT aerosol powder Inhale 1 puff 1 (one) time each day Active LACTULOSE PO Take 15 mL by mouth in the morning and 15 mL in the evening. Active levalbuterol (XOPENEX HFA) 45 MCG/ACT inhaler Inhale 1-2 puffs every 6 (six) hours if needed for wheezing Active Multiple Vitamin (multivitamin) tablet Take 1 tablet by mouth 1 (one) time each day Active Fluticasone-Oscar meterol (Advair Diskus) 100-50 MCG/ACT aerosol powder Inhale 1 puff in the morning and 1 puff in the evening. Active Active Problems Problem Noted Date Diagnosed Date Hyperglycemia 11/06/2024 Chronic kidney disease stage 3A 08/08/2024 Neuropathy 05/18/2024 Congestive heart failure 03/31/2024 Cardiomyopathy 09/30/2022 Hypertension 09/14/2022 Hemochromatosis 08/31/2022 Hyperlipidemia 08/28/2022 Insomnia 08/28/2022 Chronic obstructive pulmonary disease 08/28/2021 Coronary atherosclerosis 08/28/2021 Vitamin B12 deficiency (non anemic) 11/30/2016 Vitamin D deficiency 11/30/2016 Obstructive sleep apnea syndrome 03/17/2016 Encounters Date Type Department Care Team Description 12/19/2024 Documentation Only [facility], [place] [address] Yinka Blackburn MD 11/09/2024 Refill [facility], [address] [place] [address] George HodgenyDEO marsh 11/09/2024 Office Communication [facility], [address] [place] [address] Yinka Blackburn MD 11/09/2024 Refill [facility], [address] [place] [address] Yinka Blackburn MD 11/08/2024 Documentation Only [facility], [facility] [address] [facility] [facility] [address] [place] [address] Yinka Blackburn MD 11/07/2024 10:45 AM CDT Office Visit [facility], [facility] [address] [facility] [address] [place] [address] Yinka Blackburn MD Chronic kidney disease stage 3A (HCC) (Primary Dx); Hypertension; Obstructive sleep apnea syndrome; Coronary atherosclerosis; Other hypertrophic cardiomyopathy (HCC); Simple chronic bronchitis (HCC); Mixed hyperlipidemia; Vitamin D deficiency, not otherwise specified 11/06/2024 Documentation Only [facility], [facility] [address] [facility] [address] [place] [id number] Yinka Blackburn MD from Last 3 Months Family History Medical History Relation Comments Cancer Brother Kidney disease Brother Heart disease Father Hypertension Father Stroke Father Heart disease Father's Brother Hypertension Father's Brother Stroke Father's Brother Heart disease Father's Sister Hypertension Father's Sister Stroke Father's Sister Autosomal Dominant Polycystic Kidney Disease Mat ernal Grandfather Cancer Maternal Grandfather Kidney disease Maternal Grandfather Cancer Maternal Grandmother Cancer Mother Autosomal Dominant Polycystic Kidney Disease Mot her's Brother Cancer Mother's Sister Cancer Paternal Grandfather Dementia Paternal Grandmother Relation Status Comments Brother Father Father's Brother Father's Sister Maternal Grandfather Maternal Grandmother Mother Mother's Brother Mother's Sister Paternal Grandfather Paternal Grandmother Social History Tobacco Use Types Packs/Day Years Used Date Smoking Tobacco: Every Day Cigarettes Tobacco Cessation:Ready to Q uit: Not Asked; Counseling Given: Not Answered Alcohol Use Standard Drinks/Week Comments Yes 0 (1 standard drink = 0.6 oz pur e alcohol) Comments Unknown Sex and Gender Information Value Date Recorded Sex Assigned at Not on file Legal Sex Female 4:34 PM EST Gender Identity Not on file Sexual Orientation Not on file Last Filed Vital Signs Vital Sign Reading Time Taken Comments Blood Pressure 90/50 11/07/2024 10:59 AM CDT Pulse 87 11/07/2024 10:59 AM CDT Temperature - - Respiratory Rate 18 11/07/2024 10:59 AM CDT Oxygen Saturation 96% 11/07/2024 10:59 AM CDT Inhaled Oxygen Concentration - - Weight 64.4 kg (142 lb) 11/07/2024 10:59 AM CDT Height 160 cm (5' 3) 11/07/2024 10:59 AM CDT Body Mass Index 25.15 11/07/2024 10:59 AM CDT Plan of Treatment Upcoming Encounters Date Type Department Care Team (Late st Contact Info) Description 12/26/2024 11:15 AM CDT Office Visit [facility], [facility] [address] [facility] [address] [place] [address] Yinka Blackburn MD [address] [facility] [address] [place] [address] Health Maintenance Due Date Last Done Comments Breast Cancer Screening 1958 Colorectal Cancer Screening: Annual FOBT 2007 Colorectal Cancer Screening: Colonoscopy 2007 Colorectal Cancer Screening: Sigmoidoscopy 2007 Pneumococcal Vaccine: 50+ Years (2 of 2 - PCV) 04/27/2015 04/27/2014 Influenza Vaccine (#1) 2025 3, 04/07/2022, 08/13/2021, Additional history exists Hepatitis B Vaccine Aged Out No longe r eligible based on patient's age to complete this topic Insurance [employer] Commercial Advance Directives Documents on File Type Date Recorded Patient Account Manager [id number] Expl anation Advance Care Planning 11/09/2024 10:25 AM Care Teams Speech Pathology Teacher Relationship Specialty Start Date End Date Alyssa Monterroso, FRANCIA [address] [place] [address] PCP - General Family Medicine 08/11/24
--- OUTSIDE RECORDS SUMMARY | 2024-12-21 16:28 | XMS_ITS | Patient Health Record ---
Author Organization [facility] joselito Address [address] [place], [place] [address] Care Team Providers Care Property Management Bookkeeper Name Role Phone HOPPER SOCCER REFEREE, PHIL Primary Care Provider Mariama MckennaShyam Unavailable [phone] ALLERGIES No Known Allergies REASON FOR REFERRAL No Information MEDICATIONS Medication SIG (Take, Route, Frequency, Duration) Notes Start Date End Date Status dicyclomine 10 mg 2 cap(s) orally 4 ti mes a day Active albuterol 0.63 mg/3 mL (0.021%) 3 mL by nebulizer 3 times a day Active traZODone 50 mg 1 tab(s) orally 2 ti mes a day Active DULoxetine 60 mg 1 cap(s) orally once a day Active omeprazole 40 mg 1 cap(s) orally once a day Active buPROPion 150 mg/24 hours 1 tab(s) orall y every 24 hours Active Anoro Ellipta Active multivitamin Active metoprolol 25 mg 1 tab(s) orally 2 ti mes a day Active PROBLEMS Problem Type ICD Code Onset Dates Problem Status W/U Status Risk SNOMED Code Notes Problem Polyarthralgia (M25.50) Active confirmed 12802923 Problem Low back pain at multiple sites (M54.5) Active confirmed 317568816 Problem Neck pain (M54.2) Active confirmed 8168 0005 Problem Inflammation of lung (J18.9) Active confirmed 574271660 PLAN OF TREATMENT Pending Test Test Name Order Date CPK (IH) 02/04/2021 CP (IH) 02/04/2021 P-ANCA, C-ANCA 02/04/2021 DS DNA ANTIBODY, CRITHIDIA, IFA W/REFL Q UEST 02/04/2021 Insurance Providers Payer Name Payer Address Payer Phone Subscriber Number Group Number Insured Name Patient Relationship to Insured Coverage Start Date Coverage End Date [employer] [address] [place] [address] [phone] [id number] Olga Dang Self - patient is the insured 1 MEDICAL (GENERAL) HISTORY Medical History History ICD Code bruises easily change in moles vision - flashes ear ache hoarseness neuropathy depression sores that won't heal tension headaches Ringing in ears sinus problems difficulty swallowing dizziness anxiety chest pain irregular heart beat difficulty breathing bowel changes diarrhea Lack of bladder control abnormal pap smear Hot Flashes rapid heartbeat chronic cough bloating constipation irritable bowel syndrome Nausea stomach pain/cramps Surgical History Surgery Date(Month/Year) Shoulder 2012 2 disc, neck 2013 Carpal tunnel 2015
--- OUTSIDE RECORDS SUMMARY | 2024-12-21 16:28 | XMS_ITS | Data Portability ---
Author Organization [facility] [place], Main Office Address [address] [place] [address] Care Team Providers Care Bilingual Office Assistant Name Role Phone PITER SCHREIBER Primary Care Provider Assessment Encounter Date Assessment Date Assessment LastModified by Organization Details LastModified Time 03/31/2024 03/31/2024 Flu shot: Believes UTD COVID vaccines: x3 Tdap: due, will talk to cardiology Mammogram: declines WWE: declines Colonoscopy: 4 years ago, clear [email or web address] Not available 03/31/2024 12:49:53 Plan of Treatment Reminders Order Date Submit Date Provider Last Modified By Organization Details Last Modified Time Details Appointments None recorded. Lab urinalysis, dipstick 2024 025 [facility], [address] [place] [address], [address], 12:55:59 culture, urine 2024 025 [facility], [address] [place], [address], 11:52:58 CBC w/ auto diff 2024 025 [facility], [address] [place], [address], 5 04:48:40 TIBC (total iron-bindin g capacity), serum 2024 025 [facility], [address] [place], [address], 5 09:11:23 vitamin B12 + folate, serum or blood [address] [facility], [address] [place], [address], 5 08:16:18 CMP, serum or plasma 2024 025 [facility], [address] [place], [address], 5 07:35:25 CBC w/ auto diff 2024 025 [facility], [address] [place], [address], 5 07:35:26 lipid panel, serum 2024 025 [facility], [address] [place], [address], 5 07:35:26 TSH, serum or plasma [address] [facility], [address] [place], [address], 5 08:16:17 HbA1c (hemoglobin A1c), blood [address] [facility], [address] [place], [address], 5 08:16:18 Referral nephrologis t referral - Please call patient to schedule an appointment . Thank you. 2024 025 [email or web address] Ac Azul DO, [address] [facility], [facility], [place], [address], 5 08:45:28 Procedures None recorded. Surgeries None recorded. Imaging None recorded. Medication Orders cefdinir 300 mg capsule [address]/Pharmacy #[id number], [address], [place], [address], 09:22:05 fluconazole 150 mg tablet 2024 025 [id number], [address], [place], [address], 11:40:42 diclofenac 3 % topical gel [address]/Pharmacy #[id number], [address] [place], [address], 12:04:31 lidocaine 5 % topical patch [address]/Pharmacy #[id number], [address] [place], [address], 11:17:40 pregabalin 50 mg capsule [address]/Pharmacy #[id number], [address] [place], [address], 12:07:53 buspirone 5 mg tablet [address]/Pharmacy #[id number], [address] [place], [address], 11:16:25 Patient TargetsNo targets recorded. Patient Instructions Encounter Date Encounter Id Patient Instructions Last Modified By Organization Details Last Modified Time 06/22/2024 [id number] dementia rating scale-2* ABY Not available 06/22/2024 14:53:31 multi-dimensiona l health assessment questionnaire* ABY Not available 06/22/2024 14:52:51 care plan* ABY Not available 06/22 14:34:27 advance directiv es: care instructions [email or web address] Not available 06/22/2024 13:47:06 advance care planning: care instructions [email or web address] Not available 06/22/2024 13:47:06 [place] Advance Directives татьяна Not available 06/22/2024 13:47:06 Personalized a lt Plan and Screening Recommendations Advance Directives - Do you have one? No I recommend consulting with an Shop Worker, family member, or friend to assist you. Advance Directives - Do we have your advance directive on file in your health record? Primary Prevention/Interven tion (prevents or decreases the chance of common diseases from occurring) Smoking Risk: Non Smoker Alcohol Misuse Screening: Negative Weight: Appropriate Physical activity: Appropriate physical activity Nutrition: Good Fall Risk (screened today): Intermediate Vaccines Pneumococcal: No further needed Influenza: Your next one in the fall of this year Chronic Disease Risks Stroke: Low Risk Active diagnosis, Continue current treatment plan Heart Attack: High Risk Active diagnosis, Continue current treatment plan Clogging of the Arteries: Intermediate Risk Active diagnosis, Continue current treatment plan Diabetes: Low Risk Active diagnosis, Continue current treatment plan Secondary Prevention/Interven tion (detects treatable diseases before they may cause symptoms, disability, or ) Breast Cancer Screening with mammogram: Recommended today, but you have declined Cervical/Uterine/Ov aliyah Cancer Screening: Recommended today, but you have declined Osteoporosis Screening: Recommended today, but you have declined Date Screening Last Performed: Colon Cancer Screening: No screening necessary Date Screening Last Performed: Eye Disease Screening: Your next exam in: Dementia Risk: Intermediate Depression Screening: Positive Active diagnosis, Continue current treatment plan [email or web address] Not available 06/22/2024 13:47:01 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 Thank you. Referring Physician: Alyssa Monterroso, Family Medicine, Encounter Date: 08/08/2024 Results Created Date Observation Date Name Description Value Unit Range Abnormal Flag Note LastModifiedBy Organization Detail LastModifiedTime 08/09/1908/08/2024 urina lysis , dipst ick Leukocytes (reference range: negative jose/ l) Trace Not Available [facility] [address], [place], [address], 08/08/2024 11:38:11 08/09/19 25 08/08/2024 urina lysis , dipst ick Nitrite (reference rage: negative mg/dl) negati ve Not Available [address], [address], 08/08/2024 11:38:11 08/09/19 25 08/08/2024 urina lysis , dipst ick Urobilinogen (reference range: 0.2-1 mg/dl) 0.2 Not Available [address], [address], 08/08/2024 11:38:11 08/09/19 25 08/08/2024 urina lysis , dipst ick pH (reference range: 5-7) 5.5 Not Available [address], [address], 08/08/2024 11:38:11 08/09/19 25 08/08/2024 urina lysis , dipst ick Blood (reference range: negative [place]/ l) Non-He molyze d: Trace Not Available [address], [address], 08/08/2024 11:38:11 08/09/19 25 08/08/2024 urina lysis , dipst ick Specific Scott (reference range: 1.005-1.030) 1.020 Not Available [address], [address], 08/08/2024 11:38:11 08/09/19 25 08/08/2024 urina lysis , dipst ick Ketone (reference range: negative mg/dl) Trace Not Available [address], [address], 08/08/2024 11:38:11 08/09/19 25 08/08/2024 urina lysis , dipst ick Bilirubin (reference range: negative mg/dl) Negati ve Not Available [address], [address], 08/08/2024 11:38:11 08/09/19 25 08/08/2024 urina lysis , dipst ick Protein (reference range: negative mg/dl) Trace Not Available [address], [address], 08/08/2024 11:38:11 08/09/19 25 08/08/2024 urina lysis , dipst ick Glucose (reference range: negative mg/dl) 1000 Not Available [address], [address], 08/08/2024 11:38:11 08/09/19 25 08/08/2024 urina lysis , dipst ick Appearance Clear Not Available [address], [address], 08/08/2024 11:38:11 08/09/19 25 08/08/2024 urina lysis , dipst ick Color Dark Yellow Not Available [address], [address], 08/08/2024 11:38:11 Result Notes None recorded. Problems Name Problem SNOMED Code Status Onset Date Resolution Date Notes Provider Name and Address Organization Details Recorded Time Osteoporo sis 14166004 Active 2022 Not Available [facility] 09:37:52 Hyperlipi demia 58210105 Active 2022 Not Available [facility] 3 09:37:52 Gastroeso phageal reflux disease without esophagit is 245981337 Active 2022 Not Available [facility] 3 09:37:52 Irritable bowel syndrome 35018144 Active 2022 Not Available [facility] 3 09:37:52 Thyroid nodule 547399403 Active 2022 Not Available [facility] 3 09:37:52 Mixed anxiety and depressiv e disorder 979136785 Active 2022 Not Available [facility] 3 09:37:52 Supravent ricular tachycard ia 5821378 Active 2022 Not Available [facility] 3 09:37:52 Vaginitis 37437318 Completed 202203/31/2024 FRANCIA Nielsen [address], [place], [address] , [place] [facility] [employer] 4 13:03:15 Insomnia 254307238 Active 2022 Not Available [facility] 3 09:37:52 Cardiomyo marisol 92310023 Active 2022 Not Available [facility] 3 09:37:53 Obstructi ve sleep apnea syndrome 79941844 Active 2023 Arely Shepard RN [facility], [place] [facility] [employer] 5 09:20:09 Congestiv e heart failure 33966251 Active 2023 FRANCIA Nielsen [address], [address], [place], [address] , [place] [employer] [facility] 4 12:56:24 Irritable bowel syndrome character ized by constipat ion 368055468 Active 2023 FRANCIA Nielsen [address], [address], [place], [address] , [place] [facility] [place] [facility] 4 12:56:36 Osteoarth ritis 798081908 Active 2023 FRANCIA Nielsen [address], [address], [place], [address] , [facility] 4 10:50:05 Hemochrom atosis 997217326 Active 2023 Arely Shepard RN null, [facility] 5 09:20:09 Neuropath y 514728590 Active 2023 FRANCIA Nielsen [address], [address], [place], [address] , [facility] 4 10:54:11 Human papilloma virus infection 549758232 Active 2023 FRANCIA Nielsen [address], [address], [place], [address] , [facility] 4 10:59:34 Vitamin B12 deficienc y (non anemic) 57886776 Active 2024 Arely Shepard RN null, [facility] 5 09:20:09 Cobalamin deficienc y 441837896 Active [address], [place], [address] , [facility] 5 09:08:03 Orthostat ic hypotensi on 88577073 Active 2024 FRANCIA Nielsen [address], [address], [place], [address] , [facility] 5 11:34:45 Chronic kidney disease stage 3 556843219 Active [address], [place], [address] , [facility] 5 11:35:12 Incomplet e emptying of urinary bladder 491500176 Active [address], [place], [address] , [facility] 5 11:36:10 Candidias is of skin 32049286 Active 2024 FRANCIA Nielsen [address], [address], [place], [address] , [employer] [facility] 5 11:40:10 Acute otitis media 6867456 Active 2024 FRANCIA Nielsen [address], [address], [place], [address] , [place] [employer] [facility] 5 11:50:42 Acute otitis media 0061778 Active 2024 FRANCIA Nielsen [address], [address], [place], [address] , [employer] 5 11:50:57 Bilateral age-relat ed cataract 88148163882 385272 Active 2024 FRANCIA Nielsen [address], [address], [place], [address] , [place] [employer] 5 09:39:11 Deviated nasal septum 360517461 Active 2022 Not Available [facility] 3 09:37:52 Chronic obstructi ve pulmonary disease 97322189 Active 2019 Arely Shepard RN [facility], [place] [employer] 5 09:20:09 Constipat ion 98707092 Completed 03/31/[address], [place], [address] , [place] [facility] [employer] [facility] 4 13:00:00 Liver enzymes outside reference range 063221306 Active Not Available [facility] 3 09:37:52 Hypertrop hy of nasal turbinate s 59757398 Active 2022 Not Available [facility] 3 09:37:52 Acute exacerbat ion of chronic obstructi ve pulmonary disease 172201670 Completed 202103/31/2024 FRANCIA Nielsen [address], [place], [address] , [employer] 4 12:59:46 Abdominal pain 14354743 Completed Not Available [facility] 3 04:48:43 Gastroeso phageal reflux disease 731442586 Completed 03/31/2024 FRANCIA Nielsen [address], [address], [place], [address] , [employer] 4 13:00:18 Chronic constipat ion 560698044 Completed 03/31/2024 FRANCIA Nielsen [address], [address], [place], [address] , [employer] 4 12:59:48 Fluid level behind tympanic membrane Completed Not Available [facility] 3 04:48:43 Headache 12265765 Completed Not Available [facility] 3 04:48:43 Foreign body in pharynx 62475932 Completed Not Available [facility] 3 04:48:43 Abnormal findings on diagnosti c imaging of lung 273989276 Completed 202103/31/2024 FRANCIA Nielsen [address], [address], [place], [address] , [employer] 4 12:59:38 History of SARS-CoV- 2 96445855322 1604362 Completed 202103/31/2024 FRANCIA Nielsen [address], [address], [place], [address] , [employer] 4 13:00:22 Chest pain 44167339 Active 2021 Not Available [facility] 3 09:37:52 Right upper quadrant pain 104932095 Completed Not Available [facility] 3 04:48:44 Right lower quadrant pain 465393580 Completed Not Available [facility] 3 04:48:44 Mild chronic obstructi ve pulmonary disease 225800351 Active 2021 Not Available [facility] 3 09:37:52 Bronchiti s 40158068 Active Not Available [facility] 3 09:37:52 Tachycard ia 9743561 Active 2021 Not Available [facility] 3 09:37:52 Depressiv e disorder 88229145 Active Not Available [facility] 3 09:37:52 Chronic maxillary sinusitis 15741686 Completed 202203/31/2024 FRANCIA Nielsen [address], [address], [place], [address] , [employer] 4 12:59:57 Sinusitis 43648107 Completed Not Available [facility] 3 04:48:44 Chronic sinusitis 15911350 Active 2021 Not Available [facility] 3 09:37:52 Easy bruising 435571793 Completed Not Available [facility] 3 04:48:45 Seasonal allergy 829826104 Completed 03/31/2024 FRANCIA Nielsen [address], [address], [place], [address] , [employer] 4 13:03:03 Multiple nodules of lung 952630485 Active 2021 Not Available [facility] 3 09:37:52 Celluliti s of lower limb 079738455 Completed Not Available [facility] 3 04:48:45 Cramp in lower limb 237622787 Completed Not Available [facility] 3 04:48:45 Anxiety 67635857 Active Not Available [facility] 3 09:37:52 Cough 72229699 Completed 202103/31/2024 FRANCIA Nielsen [address], [address], [place], [address] , [employer] 4 13:00:03 Upper respirato ry infection 21033041 Completed Not Available [facility] 3 04:48:45 Dyspnea on exertion 29291704 Active 2021 Not Available [facility] 3 09:37:52 Contusion of finger 49471629 Completed Not Available [facility] 3 04:48:46 Urinary tract obstructi on 8528613 Completed Not Available [facility] 3 04:48:46 Sleep apnea 46843479 Completed 201903/31/2024 FRANCIA Nielsen [address], [address], [place], [address] , [employer] [facility] 4 13:02:44 Stress 49032049 Completed Not Available [facility] 3 04:48:46 Posterior rhinorrhe a 01895893 Completed 03/31/2024 FRANCIA Nielsen [address], [address], [place], [address] , [employer] 4 13:02:58 Palpitati ons 68455392 Active Not Available [facility] 3 09:37:52 Hyperglyc emia 86578422 Active Arely Shepard RN [facility], [place] [facility] [employer] 5 09:20:09 COVID-19 269787249 Completed 202103/31/2024 FRANCIA Nielsen [address], [place], [address] , [employer] [facility] 4 13:00:07 Hiatal hernia 74361975 Active 2021 Not Available [facility] 3 09:37:53 Dependenc e on supplemen mendoza oxygen 90754442891 7 Completed 202103/31/2024 FRANCIA Nielsen [address], [address], [place], [address] , [employer] 4 13:00:14 Problem Notes None recorded. Procedures Surgical History Date Name Laterality Status Provider Name and Address Organization Details Recorded Time 06/22/19 Medicare Wellness CPT Code, subsequent completed FRANCIA Nielsen [address], [place], [address], [facility] 06/22/2024 13:47:40 06/27/19 22 cholecystectomy completed Not Available [facility] 08/05/2022 04:43:10 prosthetic replacement of cervical intervertebral disc completed Not Available [facility] 08/05/2022 04:43:10 Carpal tunnel surgery completed Not Available [facility] 08/05/2022 04:43:10 decompression of ulnar nerve completed Not Available [facility] 08/05/2022 04:43:10 Breast reduction completed Not Available [facility] 08/05/2022 04:43:10 Imaging Results None recorded. Procedure Notes None recorded. Medical Equipment None Reported. Allergies Allergen ID Allergen Name Allergen Category Reaction Reaction Severity Criticality Documentation Date Start Date Code Code System Note Provider Name and Address Organization Details Recorded Time 7146 Contrave medicatio n nausea Not available Not available 08/05/2022 40177 69 RxNorm Not Available [facility] 3 04:56:37 7147 Medrol medicatio n other moderate Not available 08/05/20222014 2 RxNorm Anxie ty and irrit able. (not aller gy) Not Available [facility] 3 04:56:37 7148 prednison e medicatio n Not available Not available Not available 08/05/2022 8640 RxNorm Not Available [facility] 3 04:56:37 Medications Name Sig Start Date Stop Date Status Note LastModified by Organization Details LastModified Time cyclobenz aprine 10 mg tablet TAKE ONE TABLET 3 TIMES DAILY NEEDED active Not Available Not Available No t Available amoxicill in 500 mg capsule 04/18 completed Not Available Not Available Not Available furosemid e 40 mg tablet TAKE 1 AND 1/2 TABLETS BY MOUTH ONCE DAILY active Not Available Not Available No t Available dicloxaci llin 500 mg capsule active Not Available Not Available Not Available buspirone 5 mg tablet TAKE 1 TABLET BY MOUTH TWICE A DAY NEEDED 2024 active Not Available Not Available Not Avai lable cyanocoba anne (vit B-12) ER 1,000 mcg tablet,ex tended release TAKE ONE TABLET DAILY 04/18 completed Not Available Not Available Not Available albuterol sulfate 0.63 mg/3 mL solution for nebulizat ion USE 1 VIAL IN NEBULIZE R EVERY 4 TO 6 HOURS NEEDED active Not Available Not Available No t Available diclofena c 3 % topical gel APPLY TO PAIN AREAS BY TOPICAL ROUTE 2 TIMES PER DAY 06/22 completed Not Available Not Available Not Available nystatin 100,000 unit/mL oral suspensio n SHAKE LIQUID AND TAKE 5 ML BY MOUTH FOUR TIMES DAILY FOR 10 DAYS DIRECTED active Not Available Not Available No t Available doxycycli ne hyclate 100 mg capsule 08/08 completed Not Available Not Available Not Available ipratropi um 0.5 mg-albute rol 3 mg (2.5 mg base)/3 mL nebulizat ion soln USE 1 VIAL VIA NEBULIZE R EVERY 4 HOURS 06/22 completed Not Available Not Available Not Available albuterol sulfate 2.5 mg/3 mL (0.083 %) solution for nebulizat ion Inhale 3 mL every 4-6 hours by nebuliza tion route as needed. 09/23 completed Not Available Not Available Not Available citalopra m 40 mg tablet TAKE 1 TABLET BY MOUTH EVERY DAY active Not Available Not Available No t Available trazodone 50 mg tablet TK 1 TO 2 TS PO HS PRN active Not Available Not Available No t Available triamcino lone acetonide 0.5 % topical cream 04/18 completed Not Available Not Available Not Available atorvasta tin 10 mg tablet Take 1 tablet every day by oral route at bedtime for 30 days. 03/31 completed trigs elevated only. Not Available Not Available Not Available azithromy jose alberto 250 mg tablet TAKE 2 TABLETS BY MOUTH TODAY, THEN TAKE 1 TABLET DAILY FOR 4 DAYS DIRECTED 11/30 completed Not Available Not Available Not Available ofloxacin 0.3 % eye drops PLEASE SEE ATTACHED FOR DETAILED DIRECTIO NS active Not Available Not Available No t Available metoprolo l tartrate 100 mg tablet 04/18 completed Not Available Not Available Not Available fluconazo le 150 mg tablet TAKE 1 TABLET BY MOUTH ONCE FOR ONE DOSE, REPEAT IN 72 HRS IF NEEDED active Not Available Not Available No t Available benzonata te 200 mg capsule Take 1 capsule 3 times a day by oral route as needed. active Not Available Not Available No t Available metoprolo l succinate ER 50 mg tablet,ex tended release 24 hr TAKE 1 TABLET BY MOUTH EVERY DAY active Not Available Not Available No t Available hydrocodo ne 5 mg-acetam inophen 325 mg tablet TAKE 1 TABLET BY MOUTH EVERY 6 HOURS NEEDED FOR PAIN 07/22 completed Not Available Not Available Not Available prednison e 20 mg tablet TAKE 2 TABLETS BY MOUTH EVERY DAY FOR 5 DAYS active Not Available Not Available No t Available isosorbid e mononitra te ER 30 mg tablet,ex tended release 24 hr active Not Available Not Available Not Available alendrona te 70 mg tablet 1 Tablet Weekly active Not Available Not Available No t Available cyanocoba anne (vit B-12) 1,000 mcg tablet TAKE 1 TABLET BY MOUTH EVERY DAY DIRECTED 2024 active Not Available Not Available Not Avai lable penicilli n V potassium 500 mg tablet 07/13 completed Not Available Not Available Not Available ciproflox acin 500 mg tablet TAKE 1 TABLET BY MOUTH TWICE A DAY FOR 7 DAYS 03/31 completed Not Available Not Available Not Available sulfameth oxazole 800 mg-trimet hoprim 160 mg tablet 12/04 completed Not Available Not Available Not Available omeprazol e 40 mg capsule,d elayed release TAKE 1 CAPSULE BY MOUTH EVERY DAY active Not Available Not Available No t Available aspirin 81 mg tablet,de layed release Take 1 tablet every day by oral route. 08/18 completed Not Available Not Available Not Available amitripty line 50 mg tablet active Not Available Not Available No t Available triamcino lone acetonide 0.1 % topical cream PLEASE SEE ATTACHED FOR DETAILED DIRECTIO NS 03/31 completed Not Available Not Available Not Available spironola ctone 25 mg tablet TAKE 1 TABLET BY MOUTH EVERY DAY DIRECTED active Not Available Not Available No t Available ketorolac 0.5 % eye drops PLEASE SEE ATTACHED FOR DETAILED DIRECTIO NS active Not Available Not Available No t Available meloxicam 7.5 mg tablet TAKE 1 TABLET BY MOUTH EVERY DAY WITH FOOD 03/31 completed Not Available Not Available Not Available oxycodone -acetamin ophen 5 mg-325 mg tablet 07/13 completed Not Available Not Available Not Available citalopra m 20 mg tablet TAKE 1 TABLET BY MOUTH EVERY DAY IN THE MORNING 03/31 completed Not Available Not Available Not Available amitripty line 25 mg tablet active Not Available Not Available No t Available prednisol one acetate 1 % eye drops,anayeli pension INSTILL 1 DROP 3 TIMES DAILY INTO SURGICAL EYE CONTINUI NG FOR 3 WEEKS AFTER SURGERY active Not Available Not Available No t Available lorazepam 0.5 mg tablet TAKE 1 TABLET BY MOUTH EVERY 6 HOURS NEEDED FOR ANXIETY. 06/22 completed Not Available Not Available Not Available nitroglyc quinton 0.4 mg/hr transderm al 24 hour patch 06/22 completed Not Available Not Available Not Available imiquimod 5 % topical cream packet PLEASE SEE ATTACHED FOR DETAILED DIRECTIO NS active Not Available Not Available No t Available amitripty line 10 mg tablet 04/18 completed Not Available Not Available Not Available hydrocodo ne 7.5 mg-acetam inophen 325 mg tablet active Not Available Not Available Not Available pantopraz ole 40 mg tablet,de layed release Take 1 tablet(s ) every day by oral route as directed for 90 days. active Not Available Not Available No t Available oseltamiv ir 75 mg capsule 07/13 completed Not Available Not Available Not Available buspirone 10 mg tablet TAKE 1 TABLET TWICE A DAY FOR ANXIETY 04/18 completed Not Available Not Available Not Available lansopraz ole 30 mg capsule,d elayed release TAKE 1 CAPSULE DAILY 04/18 completed Not Available Not Available Not Available hyoscyami ne 0.125 mg sublingua l tablet active Not Available Not Available Not Available lidocaine 5 % topical patch Apply 1 patch twice a day by topical route as needed for 30 days. 08/08 completed Not Available Not Available Not Available polymyxin B sulfate 10,000 unit-trim ethoprim 1 mg/mL eye drops 04/18 completed Not Available Not Available Not Available losartan 25 mg tablet TAKE 1 TABLET BY MOUTH EVERY DAY active Not Available Not Available No t Available fluoxetin e 10 mg capsule 04/18 completed Not Available Not Available Not Available nitroglyc quinton 0.4 mg sublingua l tablet PLACE 1 TABLET UNDER TONGUE EVERY 5 MINS, UP TO 3 DOSES NEEDED FOR CHEST PAIN active Not Available Not Available No t Available buspirone 7.5 mg tablet Take 1 tablet twice a day by oral route. active Anxiety with Bupropio n XL. Not Available Not Available Not Available budesonid e 0.5 mg/2 mL suspensio n for nebulizat ion Inhale 2 mL twice a day by nebuliza tion route as directed for 90 days. 08/18 completed Not Available Not Available Not Available diltiazem CD 120 mg capsule,e xtended release 24 hr TAKE 1 CAPSULE BY MOUTH EVERY DAY 03/31 completed Not Available Not Available Not Available monteluka st 10 mg tablet Take 1 tablet every day by oral route in the evening for 30 days. active Not Available Not Available No t Available hydroxyzi ne HCl 25 mg tablet Take 1 tablet 3 times a day by oral route as needed. active Not Available Not Available No t Available mupirocin 2 % topical ointment active Not Available Not Available Not Available digoxin 125 mcg (0.125 mg) tablet TAKE 1 TABLET BY MOUTH EVERY DAY 08/08 completed Not Available Not Available Not Available zolpidem 5 mg tablet TAKE 1 TABLET BY MOUTH NIGHTLY NEEDED FOR SLEEP FOR UP TO 14 DAYS 03/31 completed Not Available Not Available Not Available gabapenti n 100 mg capsule TAKE 1 CAPSULE BY MOUTH EVERY DAY NIGHTLY 03/31 completed Not Available Not Available Not Available metoprolo l succinate ER 25 mg tablet,ex tended release 24 hr TAKE 1 TABLET BY MOUTH EVERY DAY AT NIGHT 06/22 completed Not Available Not Available Not Available levalbute rol 1.25 mg/3 mL solution for nebulizat ion Inhale 3 mL every 8 hours by nebuliza tion route for 30 days. 2022 active Not Available Not Available Not Avai lable lorazepam 1 mg tablet TAKE 1 TABLET BY MOUTH EVERY 6 HOURS NEEDED FOR ANXIETY. active Not Available Not Available No t Available azelastin e 137 mcg (0.1 %) nasal spray ADMINIST ER 1 SPRAY INTO EACH NOSTRIL 2 TIMES A DAY DIRECTED active Not Available Not Available No t Available fluticaso ne 100 mcg-salme terol 50 mcg/dose blistr powdr for inhalatio n INHALE 1 PUFF TWICE A DAY -RINSE MOUTH WITH WATER AFTER USE. DO NOT SWALLOW. active Not Available Not Available No t Available ibuprofen 600 mg tablet active Not Available Not Available Not Available levofloxa jose alberto 500 mg tablet TAKE 1 TABLET BY MOUTH EVERY DAY FOR 10 DAYS 07/22 completed Not Available Not Available Not Available oxycodone -acetamin ophen 7.5 mg-325 mg tablet TAKE 1 TABLET BY MOUTH 3 TIMES A DAY 07/22 completed Not Available Not Available Not Available levofloxa jose alberto 750 mg tablet TAKE 1 TABLET BY MOUTH EVERY DAY DIRECTED FOR 7 DAYS 03/31 completed Not Available Not Available Not Available zolpidem 10 mg tablet 04/18 completed Not Available Not Available Not Available methylpre dnisolone 4 mg tablets in a dose pack Take as directed on pack. Directio ns for Medrol Dosepak: 1st day: 2 tablets before breakfas t, 1 tablet after lunch and after supper, and 2 tablets at bedtime. 2nd day: 1 tablet before breakfas t. 1 tablet after lunch and after supper, and 2 tablets at bedtime. 3rd day: 1 tablet before breakfas t, after lunch, after supper and at bedtime. 4th day: 1 tablet before breakfas t, after lunch and at bedtime. 5th day: 1 tablet before breakfas t and at bedtime. 6th day: 1 tablet before breakfas t 08/21 completed Not Available Not Available Not Available albuterol sulfate HFA 90 mcg/actua tion aerosol inhaler Inhale 2 puffs every 4-6 hours by inhalati on route as needed for 30 days. active Not Available Not Available No t Available Vitamin D2 1,250 mcg (50,000 unit) capsule 12/19 completed Not Available Not Available Not Available oxybutyni n chloride 5 mg tablet TAKE 1 TABLET BY MOUTH EVERY DAY 03/31 completed Not Available Not Available Not Available hydroxyzi ne HCl 10 mg tablet 12/04 completed Not Available Not Available Not Available ondansetr on 4 mg disintegr ating tablet DISSOLVE 1 TABLET ON THE TONGUE EVERY 8 HOURS NEEDED 08/11 completed Not Available Not Available Not Available cefdinir 300 mg capsule TAKE 1 CAPSULE BY MOUTH TWICE A DAY DIRECTED FOR 5 DAYS 11/30 completed Not Available Not Available Not Available fluoxetin e 20 mg capsule 2 capsules daily 04/13 completed Not Available Not Available Not Available fluticaso ne propionat e 50 mcg/actua tion nasal spray,anayeli pension SPRAY 2 SPRAYS INTO EACH NOSTRIL EVERY DAY active Not Available Not Available No t Available betametha sone dipropion ate 0.05 % lotion 04/18 completed Not Available Not Available Not Available doxycycli ne hyclate 100 mg tablet Take 1 tablet twice a day by oral route. active Not Available Not Available No t Available dicyclomi ne 10 mg capsule Take 1 PO TID PRN 03/31 completed Not Available Not Available Not Available naproxen 500 mg tablet 04/18 completed Not Available Not Available Not Available amoxicill in 875 mg-potass ium clavulana te 125 mg tablet TAKE 1 TABLET BY MOUTH TWICE A DAY FOR 7 DAYS 03/31 completed Not Available Not Available Not Available buspirone 15 mg tablet Take 1/2 PO BID 04/13 completed Not Available Not Available Not Available neomycin- polymyxin -hydrocor t 3.5 mg-10,000 unit/mL-1 % ear drops,anayeli p PLACE 2 DROPS IN BOTH EARS 4 TIMES A DAY FOR 7 DAYS 03/31 completed Not Available Not Available Not Available escitalop jimmie 10 mg tablet active Not Available Not Available Not Available cyclobenz aprine 5 mg tablet TAKE 1 TABLET BY MOUTH EVERY 8 HOURS NEEDED FOR SPASMS 03/31 completed Not Available Not Available Not Available bupropion HCl XL 150 mg 24 hr tablet, extended release TAKE 1 TABLET BY MOUTH EVERY DAY IN THE MORNING 03/31 completed Not Available Not Available Not Available metoprolo l tartrate 25 mg tablet TAKE 1 TABLET BY MOUTH TWICE A DAY 03/31 completed Not Available Not Available Not Available tiotropiu m bromide 18 mcg capsule with inhalatio n device Inhale 1 capsule every day by inhalati on route as directed for 90 days. active Not Available Not Available No t Available nitrofura ntoin monohydra te/macroc rystals 100 mg capsule TAKE 1 CAPSULE BY MOUTH TWICE A DAY X7 DAYS 03/31 completed Not Available Not Available Not Available duloxetin e 30 mg capsule,d elayed release active Not Available Not Available Not Available duloxetin e 60 mg capsule,d elayed release TAKE 1 CAPSULE BY MOUTH EVERY DAY 03/31 completed Not Available Not Available Not Available eszopiclo ne 2 mg tablet TAKE 1 TABLET BY MOUTH EVERY DAY AT BEDTIME NEEDED FOR 30 DAYS 03/31 completed Not Available Not Available Not Available levalbute rol HFA 45 mcg/actua tion aerosol inhaler INHALE 2 PUFFS 4 TIMES A DAY NEEDED FOR WHEEZING OR SHORTNES S OF BREATH. active Not Available Not Available No t Available ibandrona te 150 mg tablet Take 1 tablet every month by oral route for 90 days. 04/18 completed Not Available Not Available Not Available pregabali n 50 mg capsule TAKE 1 CAPSULE BY MOUTH THREE TIMES A DAY DIRECTED FOR 30 DAYS active Not Available Not Available No t Available Vitamin D3 TK 1T PO QD 03/31 completed Not Available Not Available Not Available multivita min TK 1T PO QD 03/31 completed Not Available Not Available Not Available Symbicort 160 mcg-4.5 mcg/actua tion HFA aerosol inhaler INHALE 2 PUFFS TWICE A DAY active Not Available Not Available No t Available Amitiza 8 mcg capsule Take 1 capsule every day by oral route. 02/[address] MONROY Not Available Not Available Not Available Dulera 200 mcg-5 mcg/actua tion HFA aerosol inhaler INHALE 2 PUFFS TWICE A DAY active Not Available Not Available No t Available Suprep Bowel Prep Kit 17.5 gram-3.13 gram-1.6 gram oral solution TAKE DIRECTED BY DOCTOR 04/18 completed Not Available Not Available Not Available Chantix Continuin g Month Box 1 mg tablet 07/13 completed Not Available Not Available Not Available Linzess 145 mcg capsule Take 1 capsule twice a day by oral route for 30 days. 08/18 completed Not Available Not Available Not Available Linzess 290 mcg capsule take 1 capsule daily active Not Available Not Available No t Available Osphena 60 mg tablet tk 1 tab nightly 04/18 completed Not Available Not Available Not Available Breo Ellipta 100 mcg-25 mcg/dose powder for inhalatio n INHALE 1 PUFF DAILY RINSE MOUTH WITH WATER AFTER USE. DO NOT SWALLOW. active Not Available Not Available No t Available Anoro Ellipta 62.5 mcg-25 mcg/actua tion powder for inhalatio n Inhale 1 puff every day by inhalati on route as directed for 30 days. active Not Available Not Available No t Available Jardiance 10 mg tablet TAKE 1 TABLET BY MOUTH EVERY DAY IN THE MORNING active Not Available Not Available No t Available Contrave 8 mg-90 mg tablet,ex tended release active PT STATES MADE HER NAUSEOUS Not Available Not Available Not Available Spiriva Respimat 2.5 mcg/actua tion solution for inhalatio n INHALE 2 PUFFS BY MOUTH ONCE DAILY active Not Available Not Available No t Available Arnuity Ellipta 100 mcg/actua tion powder for inhalatio n Inhale 1 puff every day by inhalati on route as directed for 30 days. 03/31 completed Not Available Not Available Not Available Incruse Ellipta 62.5 mcg/actua tion powder for inhalatio n Inhale 1 puff every day by inhalati on route as directed for 90 days. 03/10 completed Not Available Not Available Not Available Entresto 24 mg-26 mg tablet TAKE 1/2 TABLET BY MOUTH TWICE DAILY 03/31 completed Not Available Not Available Not Available Trintelli x 10 mg tablet active Not Available Not Available Not Available Linzess 72 mcg capsule TAKE 1 CAPSULE BY MOUTH DISHCLOTH FOLDER BEFORE BREAKFAS T 06/22 completed Not Available Not Available Not Available Trelegy Ellipta 100 mcg-62.5 mcg-25 mcg powder for inhalatio n Take 1 puff PO daily active Not Available Not Available No t Available metoprolo l succinate ER 25 mg capsule sprinkle, ext. release 24 hr Take 1 capsule twice a day by oral route. 07/22 completed Not Available Not Available Not Available Arnuity Ellipta 50 mcg/actua tion powder for inhalatio n INHALE 2 PUFF BY MOUTH ONCE DAILY 08/18 completed Not Available Not Available Not Available albuterol sulf 90 mcg/actua tion breath activated powder inhaler,s ensor Inhale 2 puffs as needed by inhalati on route. 10/31 completed Not Available Not Available Not Available COVID-19 test specimen collectio n TEST DIRECTED 09/23 completed Not Available Not Available Not Available Flowflex COVID-19 Antigen Home Test kit 03/31 completed Not Available Not Available Not Available Paxlovid 300 mg (150 mg x 2)-100 mg tablets in a dose pack TAKE PER PACKAGE INSERT. 11/30 completed Not Available Not Available Not Available Vitals Date Recorded Body height Body mass index (BMI) Body weight Body temperature Heart rate Respiratory rate Oxygen saturation Oxygen saturation in Arterial blood by Pulse oximetry Systolic And Diastolic Provider Name and Address Organization Details Last Updated DateTime 5 160.02 cm 25.7 kg/m2 53492.9 4 g 97.2 [degF] 79 /min 20 /min 97 % 97 % 148/90 mm[Hg] Arely Shepard RN [facility] [place] [facility] 5 12:10:10 Date Recorded Body height Body mass index (BMI) Body weight Body temperature Respiratory rate Oxygen saturation Oxygen saturation in Arterial blood by Pulse oximetry Heart rate Systolic And Diastolic Provider Name and Address Organization Details Last Updated DateTime 5 160.02 cm 25.6 kg/m2 35853.4 5 g 97.4 [degF] 20 /min 98 % 98 % 85 /min 84/58 mm[Hg] Arely Shepard RN [facility] [place] [facility] 5 11:21:27 Date Recorded Body height Body mass index (BMI) Body weight Body temperature Heart rate Respiratory rate Oxygen saturation Oxygen saturation in Arterial blood by Pulse oximetry Systolic And Diastolic Provider Name and Address Organization Details Last Updated DateTime 5 160.02 cm 25.1 kg/m2 28821.3 2 g 97 [degF] 91 /min 20 /min 94 % 94 % 100/70 mm[Hg] Arely Shepard RN [facility] [place] [facility] 5 09:26:05 Date Recorded Body height Body mass index (BMI) Body weight Body temperature Heart rate Respiratory rate Oxygen saturation Oxygen saturation in Arterial blood by Pulse oximetry Systolic And Diastolic Provider Name and Address Organization Details Last Updated DateTime 4 160.02 cm 25.7 kg/m2 26940.5 9 g 97.2 [degF] 100 /min 20 /min 98 % 98 % 102/60 mm[Hg] Arely Shepard RN [facility] [employer] [facility] 4 12:32:58 Date Recorded Body height Body mass index (BMI) Body weight Body temperature Heart rate Respiratory rate Oxygen saturation Oxygen saturation in Arterial blood by Pulse oximetry Systolic And Diastolic Provider Name and Address Organization Details Last Updated DateTime 4 160.02 cm 25.7 kg/m2 89289.8 9 g 97.1 [degF] 87 /min 20 /min 97 % 97 % 114/70 mm[Hg] Arely Shepard RN [place] [facility] 4 10:21:03 Social History Question Answer Notes LastModified by Organization Details LastModified Time Tobacco Smoking Status Former Smoker 2 yrs ago Not Available [facility] 08/05/2022 04:14:41 Do You Have An Advance Directive? No [id number] Information not available 08/05/2022 Are You Blind Or Do You Have Difficulty Seeing? Yes Information not available 03/31/2024 What Is Your Level Of Caffeine Consumption? Occasional [id number] Information not available 08/05/2022 How Much Tobacco Do You Chew? None [id number].030 [id number] Information not available 08/05/2022 In The 14 Days Before Symptom Onset, Have You Had Close Contact With A Laboratory-confi rmed COVID-19 While That Case Was Ill? No [id number].030 [id number] Information not available 08/05/2022 In The 14 Days Before Symptom Onset, Have You Had Close Contact With A Person Who Is Under Investigation For COVID-19 While That Person Was Ill? No [id number].030 [id number] Information not available 08/05/2022 Are You Deaf Or Do You Have Serious Difficulty Hearing? No Information not available 03/31/2024 What Type Of Diet Are You Following? REGULAR [id number] Information not available 08/05/2022 Which Illicit Or Recreational Drugs Have You Used? None [id number].030 [id number] Information not available 08/05/2022 What Is The Highest Grade Or Level Of School You Have Completed Or The Highest Degree You Have Received? [id number] Information not available 08/05/2022 Have There Been Any Changes To Your Family Or Social Situation? No MIGRATION.030 [id number] Information not available 08/05/2022 What Is The Fluoride Status Of Your Home? Unknown MIGRATION.300 [id number] Information not available 08/05/2022 When Did You Quit Smoking? 1-5yearssincelnida vang MIGRATION.0301 [id number] Information not available 08/05/2022 Are There Any Guns Present In Your Home? No MIGRATION.[id number] [id number] Information not available 08/05/2022 Do You Use Insect Repellent Routinely? No [id number].[id number] [id number] Information not available 08/05/2022 Where Do You Live? SingleLevelHouse MIGRATION.0301 [id number] Information not available 08/05/2022 Advance Directive- Providers Has Reviewed Directive And Consents To Follow Them (insert Provider Name With Any Objectives In Notes Field) Yes Information not available 08/08/2024 Presence Of Domestic Violence No Information not available 08/08/2024 Guns Present In The Home? No Information not available 08/08/2024 Are You Able To Care For Yourself? Yes Information not available 08/08/2024 Are You Blind Or Do Yo Have Difficulty Seeing? Yes Information not available 08/08/2024 Are You Deaf Or Do You Have Serious Difficulty Hearing? No Information not available 08/08/2024 General Stress Level? Low Information not available 08/08/2024 Live Alone Of With Others? With Others Information not available 08/08/2024 Do You Have A Medical Power Of Shop Worker? No Information not available 03/31/2024 What Was The Date Of Your Most Recent Tobacco Screening? 02/24/2022 [id number] Information not available 08/05/2022 How Many Children Do You Have? 1 Information not available 03/31/2024 Do You Have Any Pets? Yes [id number].[id number] [id number] Information not available 08/05/2022 What Is Your Relationship Status? Information not available 03/31/2024 Do You Use Your Seat Belt Or Car Seat Routinely? Yes MIGRATION.0301 [id number] Information not available 08/05/2022 Do You Have Smoke And Carbon Monoxide Detectors In Your Home? Yes MIGRATION.0301 [id number] Information not available 08/05/2022 At What Age Did You Start Smoking Tobacco? 38 MIGRATION.0301 [id number] Information not available 08/05/2022 Are You Passively Exposed To Smoke? Yes MIGRATION.0301 [id number] Information not available 08/05/2022 Are There Any Smokers In Your House? Yes MIGRATION.0301 [id number] Information not available 08/05/2022 How Much Tobacco Do You Smoke? 0.25 PPD MIGRATION.0301 [id number] Information not available 08/05/2022 Do You Participate In Social Media? Yes Information not available 03/31/2024 Do You Use Sunscreen Routinely? No MIGRATION.0301 [id number] Information not available 08/05/2022 How Many Years Have You Smoked Tobacco? 15 MIGRATION.0301 [id number] Information not available 08/05/2022 Have You Recently Traveled Abroad? No MIGRATION.0301 [id number] Information not available 08/05/2022 Sex: Unknown Functional Status Question Answer Note LastModified by [employer] Details LastModified Time Do you use any illicit or recreational drugs? No [id number] Information not available 08/05/2022 What is your level of alcohol consumption? Occasional MIGRATION.[id number] Information not available 08/05/2022 Do you or have you ever used smokeless tobacco? Never used smokeless tobacco MIGRATION.[id number] Information not available 08/05/2022 Are you currently employed? Yes Information not available 05/18/2024 Do you have transportation difficulties? No Information not available 03/31/2024 Are you able to walk? YESWOREST Information not available 03/31/2024 Do you have difficulty doing errands alone? Yes Information not available 03/31/2024 Are you able to care for yourself? 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 Yes Information not available 03/31/2024 Do you or have you ever used e-cigarettes or vape? Never used electronic cigarettes [id number] Information not available 08/05/2022 What is your exercise level? Occasional [id number] Information not available 08/05/2022 Mental Status Question Answer Note LastModified by [employer] Details LastModified Time Do you feel stressed (tense, restless, nervous, or anxious, or unable to sleep at night)? [id number] Information not available 08/05/2022 Do you have difficulty concentrating, remembering or making decisions? sometimes Information not available 03/31/2024 Family History Relationship Description Onset Age of this Age Resolved Age Notes LastModified by Organization Details LastModified Time Mother Atrial fibrillation [id number].[id number] Not available 08/05/2022 04:43:12 Father Chronic obstructive pulmonary disease MIGRATION.051 [id number] Not available 08/05/2022 04:43:12 Father Cerebrovascu lar accident MIGRATION.759 [id number] Not available 08/05/2022 04:43:12 Father Magnetic resonance angiography of vascular structure of head [id number] Not available 08/05/2022 04:43:12 Medical History Condition Response NERVE DISEASE N BLINDNESS N RHEUMATIC FEVER N KIDNEY STONES N BLADDER PROBLEMS N MRSA N OTHER # 1 N POLIO N LUNG DISEASE/DISORDER N RADIATION / CHEMOTHERAPY N COPD Y Other # 2 N BLOOD DISEASES Y SURGERY N EAR OR HEARING PROBLEMS N MUMPS N BOWEL PROBLEMS N DEPRESSION (INCLUDING POST ) Y STROKE/TIA N ULCERS N BENIGN PROSTATIC HYPERPLASIA N MEASLES N HYPOTENSION Y MYOCARDIAL INFARCTION N OBESITY N GERD/NAUSEA N ANEURYSM N URINARY/BLADDER/KIDNEY PROBLEMS N CORONARY ARTERY DISEASE (CAD) N ADDICTION CONCERNS N Impotence N ENDOMETRIOSIS N USE OF BLOOD THINNERS N SKIN PROBLEMS N GASTROINTESTINAL DISORDER N PERIPHERAL VASCULAR DISEASE N MUSCLE,JOINT OR BONE PROBLEMS N GASTROINTESTINAL BLEEDING N BLOOD CLOTS N ASTHMA Y CATARACTS N ERECTILE DYSFUNCTION N VARICOSITIES N GI PROBLEMS N CHF Y Low Testosterone N INFERTILITY N AIDS/HIV N CHEMOTHERAPY / RADIATION N LIVER DISEASE N MALE HYPOGONADISM N HYPERTENSION Y Deficiency N ANXIETY DISORDER Y BLOOD TRANSFUSION N ANEMIA/BLOOD DISORDER N CHRONIC EAR INFECTIONS N BRONCHITIS N TUBERCULOSIS N GLAUCOMA N FOOT PROBLEM N DIVERTICULITIS N SLEEP APNEA Y CHICKENPOX N INFECTIOUS DISEASE N PROSTATE N HEART ARRHYTHMIA N INSOMNIA Y HIGH CHOLESTEROL / HYPERLIPIDEMIA Y EYE PROBLEMS N HYPERTHYROIDISM N NEUROLOGICAL PROBLEMS N EDEMA N CHRONIC PAIN SYNDROME N HYPOTHYROIDISM N CONSTIPATION N CAROTID BLOCKAGE N BACK / NECK PROBLEMS N HAVE YOU BEEN HOSPITALIZED OR SEEN IN [facility] IN THE PAST YEAR ? N ATHEROSCLEROSIS N BREAST PROBLEMS N DIALYSIS N ECZEMA N OSTEOPOROSIS N ARTHRITIS Y APPENDICITIS N DIABETES, TYPE N BAD TEETH N ENT N HEARTBURN / REFLUX N AUTISM SPECTRUM DISORDER (ASD) N HEPATITIS / LIVER DISEASE N GOUT N SLEEP DISORDER N ALZHEIMER'S DISEASE N Brain Problems N DEMENTIA N HERPES N SEIZURES/EPILEPSY N HEADACHES/MIGRAINES N VASCULAR DISEASE N PACEMAKER N Blood Disorder N DIZZINESS N HEART DISEASE/HEART PROBLEMS N KIDNEY DISEASE N MULTIPLE SCLEROSIS N CANCER: SPECIFY N CARDIAC ARRHYTHMIA N ATRIAL FIBRILLATION N Gall Stones N PULMONARY EMBOLISM N AUTOIMMUNE DISEASE N Gynecological History Statement/Question Response If Post Menopausal, Age at Menopause 89 0 Date of Last Pap Smear Date of Last Colonoscopy Most Recent Mammogram Most Recent Bone Density Obstetrics History GPAL:G 0 P 0 0 0 0 Immunizations Vaccine Type Date Status Note Provider Nam e and Address Organization Details Recorded Time COVID-19, mRNA, LNP-S, PF, 30 mcg/0.3 mL dose 1 completed Not Available [facility] 11/09/2022 09:37:54 COVID-19, mRNA, LNP-S, PF, 30 mcg/0.3 mL dose 1 completed Not Available [facility] 11/09/2022 09:37:54 COVID-19, mRNA, LNP-S, PF, 30 mcg/0.3 mL dose 1 completed Not Available [facility] 11/09/2022 09:37:54 Influenza, split virus, quadrivalent, preservative 9 completed Not Available [facility] 11/09/2022 09:37:54 tetanus toxoid, adsorbed 4 completed Not Available [facility] 11/09/2022 09:37:54 Tdap 6 completed Not Available [facility] 11/09/2022 09:37:54 Influenza, split virus, quadrivalent, PF 2 completed Not Available [facility] 11/09/2022 09:37:54 Influenza, split virus, trivalent, preservative 4 completed Not Available [facility] 11/09/2022 09:37:54 Td (adult), 5 Lf tetanus toxoid, preservative free, adsorbed 4 completed Not Available [facility] 11/09/2022 09:37:54 Past Encounters Encounter ID Performer Location Encounter Start Date Encounter Closed Date Diagnosis/Indication Diagnosis SNOMED-CT Code Diagnosis ICD10 Code Diagnosis Note [id number] Giovanny marsh MD [facility] 15 [facility]43 [facility] [address] [address] 08/30/2020 00:00:00 08/30/2020 17:57:13 [id number] AHS_Histor ic_Gateway AHS_GMG Pulmonolo gy [place] 4 [facility] 15 [place] [address] 09/23/2020 00:00:00 09/23/2020 16:24:40 [id number] Giovanny marsh MD AHS_GMG Internal Med Rolando brigida [address] [facility] [place] [address] 12/04/2020 00:00:00 12/04/2020 13:54:06 [id number] Giovanny marsh MD AHS_GMG Internal Med [facility] 15 2043 [facility], [address] [address] 12/12/2020 00:00:00 12/12/2020 15:53:30 [id number] Giovanny marsh MD AHS_GMG Internal Med [facility] 15 2043 [facility], [address] [address] 12/19/2020 00:00:00 12/19/2020 12:06:21 [id number] AHS_Histor ic_Gateway AHS_GMG Pulmonolo gy [place] [address] [facility] [address] [place] [address] 12/25/2020 00:00:00 12/25/2020 20:40:54 [id number] Giovanny marsh MD AHS_GMG Internal Med [facility] 15 2043 [facility], [address] [address] 07/22/2021 00:00:00 07/22/2021 12:16:57 [id number] AHS_Histor ic_Gateway AHS_GMG Pulmonolo gy [place] [address] [place] [address] 08/11/2021 00:00:00 08/11/2021 16:49:05 [id number] Giovanny marsh MD S_GMG Internal Med [place] [address]43 [facility] [address] [place] [address] 08/21/2021 00:00:00 08/21/2021 12:06:51 [id number] S_[facility] [place] ic_Gateway AHS_GMG Pulmonolo gy [place] [address] [place] [address] 08/28/2021 00:00:00 08/28/2021 16:20:07 [id number] ELIZABETH Page S_GMG Pulmonolo gy [place] [address] [place] [address] 09/30/2021 00:00:00 09/30/2021 15:28:13 [id number] Giovanny marsh MD S_GMG Internal Med [facility] 15 2043 [facility] [address] [place] [address] 02/24/2022 00:00:00 02/24/2022 15:17:55 [id number] ELIZABETH Page S_GMG Pulmonolo gy [place] [address] [place] [address] 03/10/2022 00:00:00 03/10/2022 19:09:49 [id number] ELIZABETH Page S_GMG Pulmonolo gy [place] [address] [place] [address] 04/07/2022 00:00:00 04/07/2022 11:31:33 [id number] ELIZABETH Page S_GMG Pulmonolo gy [place] [address] [place] [address] 05/19/2022 00:00:00 05/19/2022 19:31:55 [id number] Jamey Canchola MD Joselito_GMYahir ENT [place] [address] [place] [address] 06/23/2022 00:00:00 06/23/2022 12:05:49 [id number] Jamey Canchola MD [facility] ENT [place] [address] [place] [address] 07/29/2022 00:00:00 07/29/2022 16:21:02 [id number] Maria Antonia Trinh [facility] Pulmonolo gy [place] [address] [place] [address] 08/18/2022 16:14:25 08/18/2022 17:33:50 Acute exacerbation of chronic obstructive pulmonary disease [id number] J44.1 Start antibiotic s todayNo steroids at this point, as her anxiety is increased. I have suggested she reach out to ordering providerGo od fluid intakeRest Discussed S/S that require emergent evaluation She will call Wednesday if she has not improved and I will consider low dose steroid Mild chron ic obstructive pulmonary disease [id number] J44.9 CAT 34 (increased from 18 at NOE)PFT in chart from 06/2020 with mild obstructio n Normal FEV1, normal TLC and normal DLCORepeat completed at io70%FEV1 68%FVC increased 12% after BDTLC 117%DLCO normalRepe at 03/2022 with ratio 70FEV1 68TLC 117DLCO 79 adjustedAB G on RA 03/2022 was normalAlph a1 normalWill address maintenanc e therapy at next OV when at baseline [id number] Maria Antonia Trinh [facility] Pulmonolo gy [place] [address] [place] [address] 09/30/2022 09:21:22 10/01/2022 08:27:39 Mild chronic obstructive pulmonary disease 164680174 J44.9 CAT 15 (34 at last OV)PFT in chart from 06/2020 with mild obstructio nNormal FEV1, normal TLC and normal DLCORepeat completed 2Rat io 70%FEV1 68%FVC increased 12% after BD - likely overlapTLC 117%DLCO 79 adjustedAB G on RA 03/2022 was normalAlph a1 normalRema in on Arnuity and SpirivaSta rt levalbuter ol - she requires this R/T tachycardi a reaction to albuterolO rder sent today - instructed on techniqueD iscussed reportable signs and symptoms Dyspnea on exertion 6084 5006 R06.09 Multifacto ralBNP, eosinophil s, IGGs, IGE normalRAST with mild reaction to aspergillu s - nothing acute on CT chest to suggest systemic fungal infectionS ix minute walk testing 03/2022 with no desaturati ons below 96% however HR was elevated to 144Repeat testing inpatient was normal, she did not require oxygen Multiple n odules of lung 737155641 R91.8 CT while inpatient with multiple nodules bilaterall y, largest measuring up to 6mm.Also with GGO and calcified granulomas to liver and spleenQuan tiferon GOLD negativeCo ccidioides , legionella , histoplasm a negativeHP panel negativeAC E normalANA and RF negativeRe peat CT chest high resolution 10/2021 with no signs of ILD or fibrosisCT A 03/2022 with unchanged nodulesRep eat 03/2023 with no change in nodules, no PECardiac MRI and CT with cardiology , will request results History of SARS-CoV-2 29 [id number] Z86.16 + August 2020 Cardiomyopathy 29709132 I42.9 On life vest with last EF 15-20%BI-V pacer vs heart transplant based on results of testingCon maddy to follow with Dr Cornelius Ex-smoker [id number] Z87.[address] as detailed above [id number] Maria Antonia Trinh, [facility]_GMG Pulmonolo gy [place] [address] [place] [address] 04/27/2023 15:27:21 04/27/2023 16:34:10 Mild chronic obstructive pulmonary disease 143668019 J44.9 PFT in chart from 06/2020 with mild obstructio nNormal FEV1, normal TLC and normal DLCORepeat completed 2Rat io 70%FEV1 68%FVC increased 12% after BD - likely overlapTLC 117%DLCO 79 adjustedAB G on RA 03/2022 was normalAlph a1 normalRema in on Arnuity and SpirivaCon tinue levalbuter ol PRN - she requires this R/T tachycardi a reaction to albuterolO rder sent today - instructed on techniqueD iscussed reportable signs and symptomsAd vised vaccines this fall Dyspnea on exertion 6084 5006 R06.09 Multifacto ralBNP, eosinophil s, IGGs, IGE normalRAST with mild reaction to aspergillu s - nothing acute on CT chest to suggest systemic fungal infectionS ix minute walk testing 03/2022 with no desaturati ons below 96% however HR was elevated to 144Repeat testing inpatient was normal, she did not require oxygen Multiple n odules of lung 476239823 R91.8 CT while inpatient with multiple nodules bilaterall y, largest measuring up to 6mm.Also with GGO and calcified granulomas to liver and spleenQuan tiferon GOLD negativeCo ccidioides , legionella , histoplasm a negativeHP panel negativeAC E normalANA and RF negativeRe peat CT chest high resolution 10/2021 with no signs of ILD or fibrosisCT A 03/2022 with unchanged nodulesRep eat 03/2023 with no change in nodules, no PECardiac MRI and CT with cardiology , will request results History of SARS-CoV-2 29 [id number] [id number] Z86.16 + August 2020 Cardiomyopathy 28704918 I42.9 Was on life vest with last EF 15-20%BI-V pacer vs heart transplant to be discussed with cardiology Followed with Dr Cornelius, is currently following cardiology with [facility] Ex-smoker [id number] Z87.[address] as detailed above [id number] Bhupinder Zafar MD [facility]_[address] [address] 03/31/2024 12:02:47 03/31/2024 13:32:09 Adult health examination 467633239 Z00.00 Patient is moderately healhtyDis cussed heart healthy diet, low sodium, low carbs, low greasy foodsDiscu ssed cardiovasc ular exercise as tolerated Obstructiv e sleep apnea syndrome 70156018 G47.33 Currently out of supplies, was told by pulmonolog y needed an order from PCP Mixed anxi ety and depressive disorder 056000367 F41.8 UDS at next visit, CSA signed, ILPDMR verifiedAd vised to use lorazepam sparingly, buspar as first line for anxietyAdv ised q3 month appt Chronic ob structive pulmonary disease 16294593 J44.9 Managed by pulm, sees [facility] group Congestive heart failure 69392154 I50.9 Managed by Johanna Tian, is transplant candidate. Irritable bowel syndrome characterized by constipation 702983234 K58.1 Samples of trulance and Linzess given in office.Pat ient advised to increase fiber and water Hyperglycemia 82433504 R 73.9 Patient will wait until next visit in 3 months for labs Hyperlipidemia 71332810 E78.5 Patient will wait until next visit in 3 months for labs Insomnia 904997475 F51.0 1 Currently rotates Tylenol PM, Melatonin, Trazodone, or Lorazepam depending on sleep needs.Will continue with conservati ve methods as primary option.CPA P supplies ordered to aid with sleep [id number] Bhupinder Zafar MD [address] [address] 05/18/2024 10:11:37 05/18/2024 11:11:36 Osteoarthritis 542965975 M19.90 Advised to increase acetaminop hen 1,000 mg TIDDiscuss ed topical INSAIDs, topical CBD oils, Capsaicin creamIce, heat recommend Neuropathy 480183043 G62 .9 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 She is seeing dermatolog y to have these biopsied/r emovedDisc ussed that these are recurrent due to the stress of the body, no real way to prevent these [id number] Bhupinder Zafar MD [address] [address] 06/22/2024 11:45:18 06/22/2024 14:04:48 Adult health examination 418718361 Z00.00 Patient is moderately healthyDis cussed heart healthy diet, low sodium, low carbs, low greasy foodsDiscu ssed cardiovasc ular exercise as tolerated Screening for disorder 097271650 Z13.9 Vitamin B1 2 deficiency (non anemic) 88407066 E53.8 [id number] Bhupinder Zafar MD [address] [address] 08/08/2024 11:02:29 08/08/2024 12:34:11 Orthostatic hypotension 23535323 I95.1 Advised to contact cardio for medication FU Chronic ki dney disease stage 3 245767110 N18.30 Continue Jardiance, see nephro Incomplete emptying of urinary bladder 317105177 R39.14 Mild UTI, cefdinir ordered Candidiasis of skin 4988 3006 B37.2 R/T abx use Acute otitis media 20657 03 H66.91 Cefdinir for UTI to double treat [id number] Bhupinder Zafar MD [facility]G [address] [address] 11/30/2024 09:14:42 11/30/2024 10:04:39 Bilateral age-related cataract 4028100742 4542831 H25.9 Overall clear for surgery under conscious sedation. Health Concerns Section Related Observation LastModified by Organization Detai ls LastModified Time None Recorded Concern Status LastModified by Organization Details LastModified Time None Recorded Advance Directives Directive N: Payers Insurance Date Sequence Insurance Name Policy Number Policy Soni Covered Member ID Soni Member ID Guarantor Name 03/31/2024 1 [employer] - OPEN ACCESS Olga Degonia [id number] Olga Degonia 11/27/2024 1 [employer] [id number] Olga Degonia [id number] Olga Degonia Notes Date Note Type Note Provider Name and Address Organization Details Recorded Time 03/31/2024 text/html Olgasalma Dang i s a 64 year old female patient here today to establish care. She previously saw Marbella Neumann then Piter Schreiber She has a significant pulmonology history. She is seeing Maria Antonia Trinh.Sleep apnea, she states that Medicare has stopped sending her supplies. Was told she needs a new order and Pulmonology told her they do not manage sleep apnea. History of depression and anxiety. States that her anxiety is increasing. She take citalopram 40 mg daily and Lorazepam 0.5 PRN Insomnia, managed with trazodone 100 mg, lorazepam, melatonin, or OTC tylenol PM. She rotates based on how many days she hasn't slept. She does not always take something for sleep. She has CHF. This is managed by cardiology at [place] (Dr. Marino). They manage cardiac medications. She does see Dr. Villafuerte with the heart transplant team, she states she will not get a transplant. She has a history of chronic constipation. She has taken miralax, magnesium citrate, and took Linzess in the past and found this minimally effective. Taking in fiber and water. Flu shot: Believes UTDCOVID vaccines: x3Tdap: due, will talk to cardiologyMammogram : declinesWWE: declinesColonoscopy : 4 years ago, clear FRANCIA Nielsen [address], [address], [place], [address], [place] 03/31/2024 13:05:25 05/18/2024 text/html Olga Dang i s a 64 year old female patient here today to discuss arthritis pain She has concerns with arthritis pain in her hands, hips, back, and neck (more so scapular area). There are both Jennifer's and Heberden's nodes noted on fingers.She is currently taking acetaminophen PM 500 mg at bedtimeShe is not interested in PT at this time. Does not want to see pain management or ortho. History of depression and anxiety. States that her anxiety is increasing. She take citalopram 40 mg daily and Lorazepam 0.5 PRN Insomnia, managed with trazodone 100 mg, lorazepam, melatonin, or OTC tylenol PM. She rotates based on how many days she hasn't slept. She does not always take something for sleep. 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 She now has multiple warts through her torso. She has had multiple biopsies through dermatology but continues to get more warts. FRANCIA Nielsen [address], [address], [place], [address], [place] 05/18/2024 11:40:49 06/22/2024 text/html Olga Dang i s a 64 year old female patient here today for an MAWV She has questions regarding recent lab resultsGFR 50, currently taking Jardiance 10 mg She has a significant pulmonology history. She is seeing Maria Antonia Trinh.Sleep apnea, she states that Medicare has stopped sending her supplies. Was told she needs a new order and Pulmonology told her they do not manage sleep apnea. History of depression and anxiety. States that her anxiety is increasing. She take citalopram 40 mg daily and Lorazepam 0.5 PRN Insomnia, managed with trazodone 100 mg, lorazepam, melatonin, or OTC tylenol PM. She rotates based on how many days she hasn't slept. She does not always take something for sleep. She has CHF. This is managed by cardiology at [place] (Dr. Marino). They manage cardiac medications. She does see Dr. Villafuerte with the heart transplant team, she states she will not get a transplant. She has a history of chronic constipation. She has taken miralax, magnesium citrate, and took Linzess in the past and found this minimally effective. Taking in fiber and water. History of hemato, was seeing hematology but is not seeing any more. Had an episode of waffled vision that lasted 20 minutes 06/08/24. States she had some changes to balance. Subsided Flu shot: Believes UTDCOVID vaccines: x3Tdap: neumonia: 03/2024Mammogram: declinesWWE: declinesColonoscopy : 4 years ago, clear Alyssa Monterroso, [employer] [address] [facility], [facility] [address], [place], [address], [facility] [employer] 06/22/2024 13:49:39 08/08/2024 text/html Olga Dang i s a 64 year old female patient here today for multiple concerns Possible UTI. Notes decrease in urine output, feels incomplete emptying. Is taking Jardiance, notes when dose was increased she felt better but cardio decreased her dose Hypotension for the last few weeks with one episode of syncope on 08/06/24. States that she stood up from a seated position and felt dizziness occur, she began to walk and blacked out. She fell and hit her head. Her called EMS and she refused to go to the hospital.She states that her right jaw is tender and has bruising on the right hip.She does take aspirin 81 mg, denies neurological effects. Home BPs have been as low as 79/49, highest 149/96. Averaging 80s-90s/50s Concerns with KAITLYN ear pain, states it is painful to lay on them. This has been going on about 1 month. FRANCIA Nielsen [address], [place], [address], [place] 08/08/2024 11:51:28 11/30/2024 text/html Olga Dang i s a 64 year old female patient here today for a surgical clearance She is have KAITLYN CE with IOL with [facility]. She is scheduled for 12/11/24 and again the following well. She does get nausea with anesthesia Denies chest pain, SOBCOPD does cause wheezing and frothy sputum production.She does have CHF, she feels she has excess fluid today, advised to increase furosemide to two tabs daily PRN. FRANCIA Nielsen [address], [place], [address], [place] 11/30/2024 09:42:12 OBGyn Episode No OBEpisode recorded.
--- OUTSIDE RECORDS SUMMARY | 2024-12-21 16:28 | XMS_ITS | Patient Health Record ---
Author Organization [facility] Address [address] [facility] [address] [place] [address] Care Team Providers Care Speed Belt Sander Name Role Phone Luis A Fletcher Unavailable [phone] Reason For Referral No Information Medications Medication SIG (Take, Route, Frequency, Duration) Notes Start Date End Date Status Spiriva Respimat 2.5 MCG/ACT Inhalation 11/07/2021 Active buPROPion HCl ER (XL) 150 MG Oral 11/07/2021 Active levoFLOXacin 500 MG Oral 11/07/2021 Active Alendronate Sodium 70 MG Oral 11/07/2021 Active hydrOXYzine HCl 25 MG Oral 11/07/2021 Active LEVALBUTEROL TARTRATE HFA 45 mcg/actuation Inhalation *Reorder from [facility] for eRx and Interaction Alerts* 11/07/2021 Active Imiquimod 5 % External 11/07/2021 Activ e Lansoprazole 30 MG Oral 11/07/2021 Active DULoxetine HCl 60 MG Oral 11/07/2021 Active Omeprazole 40 MG Oral 11/07/2021 Ac tive predniSONE 20 MG Oral 11/07/2021 Ac tive Lunesta 2 MG Oral 11/07/2021 Active Osphena 60 MG Oral 11/07/2021 Activ e traZODone HCl 50 MG Oral 11/07/2021 Active Ipratropium-Albuterol 0.5-2.5 (3) MG/3ML Inhalation 11/07/2021 Active Nitrofurantoin Monohyd Macro 100 MG Oral 11/07/2021 Active Spiriva HandiHaler 18 MCG Inhalation 11/07/2021 Active ProAir HFA 108 (90 Base) MCG/ACT Inhalation 11/07/2021 Active Arnuity Ellipta 100 MCG/ACT Inhalation 11/07/2021 Active oxyCODONE-Acetaminophe n 7.5-325 MG Oral 11/07/2021 Active Linzess 72 mcg Oral 11/07/2021 Acti ve levoFLOXacin 750 MG Oral 11/07/2021 Active Eszopiclone 2 MG Oral 11/07/2021 Ac tive Entresto 24-26 MG Oral 11/07/2021 A ctive Amoxicillin-Pot Clavulanate 875-125 MG Oral 11/07/2021 Activ e Ciprofloxacin HCl 500 MG Oral 11/07/2021 Active Cyclobenzaprine HCl 5 MG Oral 11/07/2021 Active Albuterol Sulfate 0.63 MG/3ML Inhalation 11/07/2021 Active Benzonatate 200 MG Oral 11/07/2021 Active Metoprolol Tartrate 25 MG Oral 11/07/2021 Active NITROGLYCERIN PATCH 0.4 mg/hr Transdermal *Reorder from [facility] for eRx and Interaction Alerts* 11/07/2021 Active Jardiance 10 MG Oral 11/07/2021 Act kathleen Spironolactone 25 MG Oral 11/07/2021 Active Budesonide 0.5 MG/2ML Inhalation 11/07/2021 Active oxyBUTYnin Chloride 5 MG Oral 11/07/2021 Active Citalopram Hydrobromide 20 MG Oral 11/07/2021 Active Triamcinolone Acetonide 0.1% External 11/07/2021 Active Levalbuterol HCl 1.25 MG/3ML Inhalation 11/07/2021 Active Meloxicam 7.5 MG Oral 11/07/2021 Ac tive Fluconazole 150 MG Oral 11/07/2021 Active dilTIAZem HCl ER Beads 120 MG Oral 11/07/2021 Active COVID-19 Antibody Test In Vitro *Reorder from [facility] for eRx and Interaction Alerts* 11/07/2021 Active LORazepam 0.5 MG Oral 11/07/2021 Ac tive HYDROcodone-Acetaminop hen 5-325 MG Oral 11/07/2021 Active Ondansetron 4 MG Oral 11/07/2021 Ac tive Trelegy Ellipta 100-62.5-25 mcg Inhalation *Pick strength-form from [facility] for eRX* 11/07/2021 Active Immunizations Vaccine Route Administration Date Status Comme nts Tdap Unknown 02/24/2016 Administered Td (adult) preservative free Unknown 10/06/2013 Adminis tered Pneumococcal polysaccharide PPV23 Unknown 04/27/2014 Ad ministered Pfizer [employer]ion[employer] Covid-19 Vac cine 2nd dose Unknown 08/18/2020 Administered Pfizer [employer] Covid-19 Vac cine 2nd dose Unknown 09/16/2020 Administered Pfizer [employer]ion[employer] Covid-19 Vac cine 2nd dose Unknown 05/19/2021 Administered Influenza, seasonal, injecta ble, preservative free, 3 yrs and above Unknown 05/21/2014 Administered Influenza, quadrivalent, spl it virus Unknown 04/10/2019 Administered Influenza, injectable, MDCK, preservative free Unknown 04/10/2019 Administered Influenza virus vaccine, quadrivalent (IIV4), split virus, 0.25 mL dosage Unknown 04/11/2019 Administered Plan Of Treatment No Information Medical (General) History Surgical History Surgery Date(Month/Year) Reconstructive surgery 05/25/2003
== END 2024-12-21 16:24 | disposition home or self-care (01) ==
PROVIDERS: PCP Hospitalist; Visit Provider Internal Medicine Nephrology
DX: N18.31 Chronic kidney disease, stage 3a (principal); G47.33 Obstructive sleep apnea (adult) (pediatric); I42.2 Other hypertrophic cardiomyopathy; J41.0 Simple chronic bronchitis; E78.2 Mixed hyperlipidemia; E55.9 Vitamin D deficiency, unspecified; I12.9 Hypertensive chronic kidney disease with stage 1 through stage 4 chronic kidney disease, or unspecified chronic kidney disease
CPT/HCPCS: 76775